=== PATIENT | female | born 1940 | race Caucasian/White ===

== ENCOUNTER → 2016-10-25 | Outpatient (CLI) | payer OTHER ==
--- NOTE | 2016-10-25 11:38 | DX ---
DEXA Bone Mineral Densitometry Clinical Indications: Postmenopausal, Synthroid x8 years, screening for osteoporosis Comparison: November 07, 2013 (low bone density) Technique: Bone Mineral Densitometry (BMD) by Dual Energy X-Ray Absorptiometry (DEXA) was performed utilizing the Minube scanner. The lumbar spine was evaluated in the AP projection. The bilat eral hips and forearm were evaluated in the AP projection. Vertebral fracture assessment was also pe rformed. AP Lumbar Spine: The L1, L2, L3 and L4 vertebral bodies were evaluated. BMD: 1.161 gm/cm2 T-score: -0.3 SD Z-score: 1.2 SD Significantly increased by 3.9%, which is likely related to degenerative sclerosis . AP Left Hip: Neck BMD: 0.805 gm/cm2 T-score: -1.7 SD Z-score: 0.1 SD No significant change in total BMD AP Right Hip: Neck BMD: 0.774 gm/cm2 T-score: -1.9 SD Z-score: -0.1 SD No significant change in total BMD AP Left Forearm, 10/26: BMD: 0.770 gm/cm2 T-score: -1.2 SD Z-score: 1.2 SD No significant change. Vertebral Fracture Assessment: No significant fracture deformity. No prevertebral aortic calcificati on, significant marginal bone spurring, facet arthrosis, or intrinsic vertebral body sclerosis that would effect the accuracy of the lumbar spine BMD measurement. Conclusion: Considering the lowest measured site, the patient has stable low bone density. The ten year FRAX risk for any major osteoporotic fracture is 19.8% and for a hip fracture is 4.7%.A ccording to the recommendations of the National Osteopor[employer], this patient would be a good candidate for bone strengthening pharmacologic intervention. Any bone loss in this patient is probably related to aging or estrogen deficiency. Consider excluding secondary metabolic causes of bone loss (reported to be present in as many as 30% of patients with normal Z scores). Basic laboratory evaluation might include blood chemistries (calci um, phosphorus, alkaline phosphatase, liver function tests, creatinine, total protein), complete bloo d count, serum 25-OH- vitamin D3 level, 24-hour urine calcium, serum TSH and serum PTH. Targeted l aboratory testing based on individual patient circumstances might include serum electrophoresis (SPEP or UPEP), anti-tissue transglutaminase antibody levels (celiac disease) , serum bone specific alkal ine phosphatase, bone turnover markers (urine, serum) or fibroblast growth factor 23 (FGF 23)(evaluat e for unexplained osteomalacia). If secondary causes are excluded, then consider initiating treatment with a bisphosphonate (such as F osamax, Actonel or Boniva). If the patient is unable to use an oral bisphosphonate, another agent suc h as IV bisphosphonates (Boniva or Reclast), teriparatide (Forteo), a selective estrogen receptor mo dulator (Evista) or denosumab ( anti RANKL monoclonal antibody) might be considered. If antiresorptive therapy is initiated and if clinically indicated, consider obtaining a baseline and 3 month followup bone resorption marker (NTX, CTX, TRAP5b or Pyridinoline, deoxypyridinoline) to mon itor the therapeutic effect. Supplementing an insufficient diet to achieve total intakes of 1500 mg calcium and 800 International Units of vitamin D daily should be considered. Osteoporosis prevention and treatment begins by modify ing risk factors. The patient should be encouraged to participate in a regular exercise program that includes weightbearing and muscle strengthening regimens, as is clinically appropriate. Recommend follow-up DEXA in one year to assess the efficacy of pharmacologic intervention and/or teofilo ection of appropriate secondary cause.
== END ==
LOC: FIMAGING 10:14
PROVIDERS: ATTEND Family Medicine
DX: Z13.820 Encounter for screening for osteoporosis (principal); M85.80 Other specified disorders of bone density and structure, unspecified site; Z78.0 Asymptomatic menopausal state; Z79.899 Other long term (current) drug therapy

== ENCOUNTER → 2017-04-05 | Outpatient (CLI) | payer OTHER | LOC: CIMAGING 11:04 | DX: Z12.31 Encounter for screening mammogram for malignant neoplasm of breast (principal); Z85.3 Personal history of malignant neoplasm of breast | CPT/HCPCS: G0202-52 ==

== ENCOUNTER → 2017-04-19 | Outpatient (CLI) | payer OTHER | LOC: FIMAGING 14:35 | PROVIDERS: ATTEND Family Medicine | DX: R05 Cough (principal); R53.81 Other malaise; R53.83 Other fatigue; E78.5 Hyperlipidemia, unspecified; R73.9 Hyperglycemia, unspecified; K44.9 Diaphragmatic hernia without obstruction or gangrene; Z85.3 Personal history of malignant neoplasm of breast ==

== ENCOUNTER → 2018-02-09 | Outpatient (CLI) | payer OTHER | LOC: FIMAGING 08:16 | PROVIDERS: ATTEND Surgery | DX: K44.9 Diaphragmatic hernia without obstruction or gangrene (principal); K22.4 Dyskinesia of esophagus; K21.9 Gastro-esophageal reflux disease without esophagitis ==

== ENCOUNTER 2018-02-20 07:09 | Inpatient (IN) | payer OTHER ==
[~2018-02-20 07:09] MED LIST: CLINDAMYCIN 900 MG/DEXTROSE 50 ML IV ONE
[2018-02-20] MEDS ORDERED: LR 1,000 ML IV ONE (07:43)
[2018-02-20] MEDS ORDERED: LIDOCAINE 1% 2 ML INJ ID PRN (07:43)
--- NOTE | 2018-02-20 07:50 | PDHPUP ---
History & Physical Update H&P update statement: This history and physical update is based on an assessment of the patient which was completed after admission or registration (within 24 hours), but prior to the surgery/procedure. H&P update: H&P reviewed & patient examined, no change in patient's condition since H&P completed
[2018-02-20] MEDS ORDERED: HEPARIN 1000 UNIT/1 ML MDV ONE (09:26)
[2018-02-20] MEDS ORDERED: BUPIVACAINE 0.5% 30 ML SDV ONE (09:26)
[2018-02-20] MEDS ORDERED: ceFAZolin 1 GM/5 ML SYR ONE (09:26)
[2018-02-20] MEDS ORDERED: MIDAZOLAM 2 MG/2 ML VIAL IVP ONE (10:24)
--- NOTE | 2018-02-20 10:26 | PDANEPAE ---
ANE History of Present Illness damaso VAZQUEZ Past Medical History - Cardiovascular History Hx Hypertension: Yes Hx Arrhythmias: Yes Hx Chest Pain: No Hx Coronary Artery / Peripheral Vascular Disease: No Hx CHF / Valvular Disease: No Hx Palpitations: Yes Cardiovascular History Comment: HYPERLIPIDEMIA. SVTs - Pulmonary History Hx COPD: No Hx Asthma/Reactive Airway Disease: No Hx Recent Upper Respiratory Infection: No Hx Oxygen in Use at Home: No Hx Sleep Apnea: No Sleep Apnea Screening Result - Last Documented: Negative Pulmonary History Comment: SOB OCCAS. PNEUMONIA 2-3 X YRS AGO. HX ASTHMA YRS AGO - NO PROBLEM RECENTLY - Neurologic History Hx Cerebrovascular Accident: No Hx Seizures: No Hx Dementia: No - Endocrine History Hx Diabetes: Yes Endocrine History Comment: THYROIDECTOMY - Renal History Hx Renal Disorders: No - Liver History Hx Hepatic Disorders: No - Neurological & Psychiatric Hx Hx Neurological and Psychiatric Disorders: No - Cancer History Hx Cancer: Yes Cancer History Comment: THYROID CA. BREAST CA - Congenital Disorder History Hx Congenital Disorders: No - GI History Hx Gastrointestinal Disorders: Yes Gastrointestinal History Comment: GERD. COLECTOMY - DIVERTICULITIS - Other Health History Other Health History: BRUISES EASILY - Chronic Pain History Chronic Pain: Yes (CINDY KNEES) - Surgical History Prior Surgeries: TONSILLECTOMY. THUMB JOINT REPAIR L. HAMMER TOE L. D&C. FIBROID TUMORS. LUMPECTOMY R. MASTECTOMY R. THYROIDECTOMY. COLECTOMY. ABD HERNIA REPAIR ANE Review of Systems Review of Systems: - Exercise capacity METS (RN): 3 METS ANE Patient History - Allergies Allergies/Adverse Reactions: Penicillins Allergy (Intermediate, Verified 02/20/18 08:04) Rash codeine Allergy (Mild, Verified 02/20/18 08:04) nausea Sulfa (Sulfonamide Antibiotics) Allergy (Mild, Verified 02/20/18 08:04) Rash - Home Medications Home Medications: Calcium Carbonate [Oyster Shell Calcium 500 mg (*)] 500 mg PO DAILY 02/16/18 [ Last Taken 02/16/18] Cholecalciferol Vit D3 [Vitamin D3 (*)] 1,000 units PO DAILY 02/16/18 [Last Taken 02/16/18] Herbals/Supplements -Info Only 1 ea PO DAILY 02/16/18 [Last Taken 02/16/18] Ibuprofen [Motrin (*)] 200 mg PO DAILY 02/16/18 [Last Taken 02/13/18] Levothyroxine [Synthroid 100 mcg (*)] 100 mcg PO DAILY06 02/16/18 [Last Taken 06:00] Losartan Potassium [Cozaar 25 mg (*)] 25 mg PO DAILY 02/16/18 [Last Taken 12:00] Metoprolol Succinate Xr [Toprol Xl 25 mg (*)] 37.5 mg PO HS 02/16/18 [Last Taken 02/19/18 22:00] Multivitamins [Multivitamin (*)] 1 each PO DAILY 02/16/18 [Last Taken 02/16/18] Rosuvastatin Calcium [Crestor 10mg (RX)] 10 mg PO HS 02/16/18 [Last Taken 22:00] - NPO status NPO Status: no food or drink >8 hours NPO Since - Liquids (Date): 02/20/18 NPO Since - Liquids (Time): 05:45 NPO Since - Solids (Date): 02/19/18 NPO Since - Solids (Time): 19:00 - Anes Hx Anes Hx: no prior problems - Smoking Hx Smoking Status: Former smoker - Family Anes Hx Family Hx Anesthesia Complications: NEG ANE Labs/Vital Signs - Vital Signs Blood Pressure: 146/76 Heart Rate: 76 Respiratory Rate: 16 O2 Sat (%): 95 Height: 156.21 cm Weight: 71.214 kg ANE Physical Exam - Airway Mallampati Score: Class 2 Mouth exam: normal dental/mouth exam - Pulmonary Pulmonary: no respiratory distress - Cardiovascular Cardiovascular: regular rate and rhythym - ASA Status ASA Status: II ANE Anesthesia Plan Anesthesia Plan: general endotracheal anesthesia
[2018-02-20] MEDS ORDERED: fentaNYL 100 MCG/2 ML INJ ONE ×2 (10:33→12:51)
[2018-02-20] MEDS ORDERED: PROPOFOL 200 MG/20 ML VIAL ONE (10:33)
[2018-02-20] MEDS ORDERED: DEXAMETHASONE 4 MG/ML VIAL ONE (10:34)
[2018-02-20] MEDS ORDERED: KETOROLAC 30 MG/1 ML SDV ONE (10:34)
[2018-02-20] MEDS ORDERED: ROCURONIUM 100 MG/10 ML VIAL ONE (10:34)
[2018-02-20] MEDS ORDERED: ONDANSETRON 4 MG/2 ML VIAL ONE (10:34)
[2018-02-20] MEDS ORDERED: LIDOCAINE 2% 5 ML SDV ONE (10:34)
[2018-02-20] MEDS ORDERED: epHEDrine SULFATE 10 MG/ML SYR ONE (11:21)
[2018-02-20] MEDS ORDERED: PHENYLEPHRINE 10 MG/ML SDV ONE (11:21)
[2018-02-20] MEDS ORDERED: GLYCOPYRROLATE 0.2 MG/1 ML VIAL ONE (11:21)
[2018-02-20] MEDS ORDERED: NALOXONE HCL 0.4 MG/ML INJ IVP PRN (12:21)
[2018-02-20] MEDS ORDERED: ONDANSETRON 4 MG/2 ML VIAL IVP PRN ×2 (12:21→12:38)
[2018-02-20] MEDS ORDERED: PHENYLEPHRINE HCL 100 MCG/ML SYR IVP PRN (12:21)
[2018-02-20] MEDS ORDERED: ALBUTEROL 3 ML DEYVIAL IH PRN (12:21)
[2018-02-20] MEDS ORDERED: LR 500 ML IV PRN (12:21)
[2018-02-20] MEDS ORDERED: SUGAMMADEX SODIUM 200 MG/2 ML VIAL IVP ONE (12:24)
--- NOTE | 2018-02-20 12:35 | POSTOPPROG ---
Post Op Note Date of Operation: 02/20/18 Surgeon: Ab Weller Senior Systems Analyst: Jerica Cam Anesthesiologist: Tad Marti Anesthesia: GET(General Endotracheal) Pre-op Diagnosis: large hiatal hernia, GERD, SOB Post-op Diagnosis: same Procedure: laparoscopic César fundoplication, hiatal hernia repair Findings: 3/4 of stomach in chest. pleura entered. intraop cxr s significant PTX Inf/Abcess present in the surg proc area at time of surgery?: No EBL: Minimal Complications: none Specimen(s): none
[2018-02-20] MEDS ORDERED: HYDROmorphONE/DILAUDID 1 MG/ML INJ IVP PRN (12:38)
[2018-02-20] MEDS ORDERED: NS W/ 20 KCl/L 1,000 ML IV SCH (12:45)
--- NOTE | 2018-02-20 12:48 | POSTANESTH ---
Post Anesthetic Evaluation Cardiovascular Status: Normal, Stable Respiratory Status: Normal, Stable Level of Consciousness/Mental Status: Can Participate in Eval Pain Control: Adequate, Prn Tx Ordered Nausea/Vomiting Control: Adequate, Prn Tx Ordered Complications Possibly Related to Anesthesia: None Noted
[2018-02-20] MEDS: fentaNYL 100 MCG/2 ML INJ IVP PRN ×2 (12:53→13:03)
[2018-02-20] MEDS ORDERED: HYDROmorphONE/DILAUDID 2 MG/ML INJ ONE (13:18)
[2018-02-20] MEDS: HYDROmorphONE/DILAUDID 2 MG/ML INJ IVP PRN ×2 (13:21→13:32)
[2018-02-20] MEDS: HYDROmorphone HCL/NS 0.5 MG/ML SYR IVP PRN ×3 (16:33→21:56)
[2018-02-20] MEDS: KETOROLAC 15 MG/1 ML SDV IVP SCH (17:57)
[2018-02-20] MEDS: HYDROCODONE/APAP 5/325 TAB PO PRN (22:01)
[2018-02-20] MEDS: ROSUVASTATIN CALCIUM 10 MG TAB PO SCH (22:01)
[2018-02-20] MEDS: DOCUSATE SODIUM 100 MG CAP PO SCH (22:02)
[2018-02-20] MEDS: METOPROLOL SUCCINATE XR 25 MG TAB PO SCH (22:03)
[2018-02-21] MEDS: KETOROLAC 15 MG/1 ML SDV IVP SCH ×4 (00:30→17:46)
[2018-02-21] MEDS: HYDROmorphone HCL/NS 0.5 MG/ML SYR IVP PRN ×2 (00:31→15:32)
[2018-02-21] MEDS ORDERED: POTASSIUM Cl (KCl) 20 MEQ in NS 1,000 ML IV SCH (02:00)
[2018-02-21] MEDS: HYDROCODONE/APAP 5/325 TAB PO PRN ×3 (05:03→16:06)
[2018-02-21] MEDS: LEVOTHYROXINE 100 MCG TAB PO SCH (05:03)
--- NOTE | 2018-02-21 09:15 | SOAPPROG ---
SOAP Progress Note Assessment/Plan: Assessment/Plan: 77 Y F s/p lap hiatal hernia repair with César fundoplication , POD#1. No PTX on CXR. Tolerating clears. No flatus. Pain controlled. Advance to full liquid diet. OOB today. Encouraged walking. Dispo: likely home tomorrow. S:see above O: alert, nad mmm no wob, good fremitus abd softly bloated, inc intact 02/21/18 09:13 Objective: Vital Signs Temp Pulse Resp BP Pulse Ox 36.5 C 83 16 102/51 L 91 L 02/21/18 07:35 02/21/18 07:35 02/21/18 07:35 02/21/18 07:35 02/21/18 07:35 Laboratory Results 02/21/18 04:25 02/21/18 04:25 02/20/18 02/21/18 02/22/18 05:59 05:59 05:59 Intake Total 1225 Output Total 950 Balance 275 ICD10 Worksheet Patient Problems: Problems Problem Status Onset Hiatal hernia Acute - ICD10 Problem Qualifiers (1) Hiatal hernia
[2018-02-21] MEDS: LOSARTAN POTASSIUM 25 MG TAB PO SCH (09:34)
[2018-02-21] MEDS: DOCUSATE SODIUM 100 MG CAP PO SCH (09:34)
--- NOTE | 2018-02-21 09:42 | ASMTCASEMG ---
Living Arrangements What is your living Answers: With Spouse arrangement? Who do you live with? Type Of Residence What kind of residence do Answers: House you live in? Discharge Plan Comments Coordination Status Comments Notes: Pt is a 77 y/o female admitted for a lap hiatel hernia repair with damaso fundoplication. Pt will most likely d/c independent when medically stable. No therapies ordered at this time. CM available for changes. Plan: Independent Date Signed: 02/21/2018 09:41 AM Electronically Signed By:JOSE Curran
[2018-02-21] MEDS ORDERED: NS 1,000 ML IV SCH (16:30)
--- NOTE | 2018-02-21 18:11 | SOAPPROG ---
SOAP Progress Note Assessment/Plan: Assessment: afebrile but markedly distended this pm/ no flatus/ decreased bs/ no tachycardia bs equal/ cor rr/ abd taunt imp: significant ileus Plan:stat 2-way 02/21/18 18:08 Objective: Vital Signs Temp Pulse Resp BP Pulse Ox 36.8 C 77 16 119/70 92 02/21/18 15:52 02/21/18 15:52 02/21/18 15:52 02/21/18 15:52 02/21/18 15:52 Laboratory Results 02/21/18 04:25 02/21/18 04:25 02/20/18 02/21/18 02/22/18 05:59 05:59 05:59 Intake Total 1225 Output Total 950 100 Balance 275 -100 ICD10 Worksheet Patient Problems: Problems Problem Status Onset Hiatal hernia Acute
[2018-02-21] MEDS ORDERED: NS 1,000 ML IV ONE (19:22)
[2018-02-21] MEDS ORDERED: ERTAPENEM 1 GM VIAL ONE (19:26)
[2018-02-21] MEDS ORDERED: FAMOTIDINE 20 MG/NACL 50 ML IV ONE (19:32)
[2018-02-21] MEDS: ERTAPENEM 1 GM VIAL IV SCH (19:32)
[2018-02-21] MEDS ORDERED: BUPIVACAINE 0.5% 30 ML SDV ONE ×2 (19:41→19:48)
[2018-02-21] MEDS ORDERED: ceFAZolin 1 GM/5 ML SYR ONE (19:42)
[2018-02-21] MEDS ORDERED: HEPARIN 1000 UNIT/1 ML MDV ONE (19:42)
[2018-02-21] MEDS ORDERED: MIDAZOLAM 2 MG/2 ML VIAL IVP ONE (19:55)
--- NOTE | 2018-02-21 19:57 | PDANEPAE ---
ANE History of Present Illness exp lap ANE Past Medical History - Cardiovascular History Hx Hypertension: Yes Hx Arrhythmias: Yes Hx Chest Pain: No Hx Coronary Artery / Peripheral Vascular Disease: No Hx CHF / Valvular Disease: No Hx Palpitations: Yes Cardiovascular History Comment: HYPERLIPIDEMIA. SVTs - Pulmonary History Hx COPD: No Hx Asthma/Reactive Airway Disease: No Hx Recent Upper Respiratory Infection: No Hx Oxygen in Use at Home: No Hx Sleep Apnea: No Sleep Apnea Screening Result - Last Documented: Negative Pulmonary History Comment: SOB OCCAS. PNEUMONIA 2-3 X YRS AGO. HX ASTHMA YRS AGO - NO PROBLEM RECENTLY - Neurologic History Hx Cerebrovascular Accident: No Hx Seizures: No Hx Dementia: No - Endocrine History Hx Diabetes: Yes Endocrine History Comment: THYROIDECTOMY - Renal History Hx Renal Disorders: No - Liver History Hx Hepatic Disorders: No - Neurological & Psychiatric Hx Hx Neurological and Psychiatric Disorders: No - Cancer History Hx Cancer: Yes Cancer History Comment: THYROID CA. BREAST CA - Congenital Disorder History Hx Congenital Disorders: No - GI History Hx Gastrointestinal Disorders: Yes Gastrointestinal History Comment: GERD. COLECTOMY - DIVERTICULITIS - Other Health History Other Health History: BRUISES EASILY - Chronic Pain History Chronic Pain: Yes (CINDY KNEES) - Surgical History Prior Surgeries: TONSILLECTOMY. THUMB JOINT REPAIR L. HAMMER TOE L. D&C. FIBROID TUMORS. LUMPECTOMY R. MASTECTOMY R. THYROIDECTOMY. COLECTOMY. ABD HERNIA REPAIR ANE Review of Systems Review of Systems: - Exercise capacity METS (RN): 3 METS ANE Patient History - Allergies Allergies/Adverse Reactions: Penicillins Allergy (Intermediate, Verified 02/20/18 08:04) Rash codeine Allergy (Mild, Verified 02/20/18 08:04) nausea Sulfa (Sulfonamide Antibiotics) Allergy (Mild, Verified 02/20/18 08:04) Rash - Home Medications Home Medications: Calcium Carbonate [Oyster Shell Calcium 500 mg (*)] 500 mg PO DAILY 02/16/18 [ Last Taken 02/16/18] Cholecalciferol Vit D3 [Vitamin D3 (*)] 1,000 units PO DAILY 02/16/18 [Last Taken 02/16/18] Herbals/Supplements -Info Only 1 ea PO DAILY 02/16/18 [Last Taken 02/16/18] Ibuprofen [Motrin (*)] 200 mg PO DAILY 02/16/18 [Last Taken 02/13/18] Levothyroxine [Synthroid 100 mcg (*)] 100 mcg PO DAILY06 02/16/18 [Last Taken 06:00] Losartan Potassium [Cozaar 25 mg (*)] 25 mg PO DAILY 02/16/18 [Last Taken 12:00] Metoprolol Succinate Xr [Toprol Xl 25 mg (*)] 37.5 mg PO HS 02/16/18 [Last Taken 02/19/18 22:00] Multivitamins [Multivitamin (*)] 1 each PO DAILY 02/16/18 [Last Taken 02/16/18] Rosuvastatin Calcium [Crestor 10mg (RX)] 10 mg PO HS 02/16/18 [Last Taken 22:00] - NPO status NPO Since - Liquids (Date): 02/21/18 NPO Since - Liquids (Time): 16:45 NPO Since - Solids (Date): 02/19/18 NPO Since - Solids (Time): 19:00 - Anes Hx Anes Hx: no prior problems - Smoking Hx Smoking Status: Former smoker - Family Anes Hx Family Hx Anesthesia Complications: NEG ANE Labs/Vital Signs - Labs Result Diagrams: 02/21/18 04:25 02/21/18 04:25 - Vital Signs Blood Pressure: 119/70 Heart Rate: 77 Respiratory Rate: 16 O2 Sat (%): 92 Height: 156.21 cm Weight: 71.214 kg ANE Physical Exam - Airway Mallampati Score: Class 2 Mouth exam: normal dental/mouth exam - Pulmonary Pulmonary: no respiratory distress - Cardiovascular Cardiovascular: regular rate and rhythym - ASA Status ASA Status: III, E ANE Anesthesia Plan Anesthesia Plan: general endotracheal anesthesia
[2018-02-21] MEDS ORDERED: MIDAZOLAM 2 MG/2 ML VIAL ONE (19:59)
[2018-02-21] MEDS ORDERED: ROCURONIUM 100 MG/10 ML VIAL ONE (20:03)
[2018-02-21] MEDS ORDERED: ONDANSETRON 4 MG/2 ML VIAL ONE (20:03)
[2018-02-21] MEDS ORDERED: DEXAMETHASONE 4 MG/ML VIAL ONE (20:03)
[2018-02-21] MEDS ORDERED: LIDOCAINE 2% 5 ML SDV ONE (20:03)
[2018-02-21] MEDS ORDERED: fentaNYL 100 MCG/2 ML INJ ONE ×2 (20:06→22:39)
[2018-02-21] MEDS ORDERED: PROPOFOL 200 MG/20 ML VIAL ONE (20:06)
[2018-02-21] MEDS ORDERED: PHENYLEPHRINE HCL 100 MCG/ML SYR ONE (20:11)
[2018-02-21] MEDS ORDERED: PHENYLEPHRINE 10 MG/ML SDV ONE (20:20)
[2018-02-21] MEDS ORDERED: ALBUMIN 5% 250 ML BOTTLE IV ONE (20:32)
[2018-02-21] MEDS ORDERED: RANITIDINE 50 MG/2 ML VIAL ONE (20:39)
[2018-02-21] MEDS ORDERED: FAMOTIDINE 20 MG/2 ML SDV ONE (20:42)
[2018-02-21] MEDS ORDERED: NS 500 ML IV PRN (21:52)
[2018-02-21] MEDS ORDERED: ONDANSETRON 4 MG/2 ML VIAL IVP PRN (21:52)
[2018-02-21] MEDS ORDERED: ALBUTEROL 3 ML DEYVIAL IH PRN (21:52)
[2018-02-21] MEDS ORDERED: fentaNYL 100 MCG/2 ML INJ IVP PRN (21:52)
[2018-02-21] MEDS ORDERED: PHENYLEPHRINE HCL 100 MCG/ML SYR IVP PRN (21:52)
[2018-02-21] MEDS ORDERED: NALOXONE HCL 0.4 MG/ML INJ IVP PRN ×2 (21:52→22:06)
[2018-02-21] MEDS ORDERED: HYDROmorphONE/DILAUDID 2 MG/ML INJ IVP PRN (21:52)
[2018-02-21] MEDS ORDERED: SUGAMMADEX SODIUM 200 MG/2 ML VIAL IVP ONE ×2 (22:04→22:09)
[2018-02-21] MEDS ORDERED: HYDROmorphONE/DILAUDID 6 MG/30 ML PCA IV PRN (22:06)
--- NOTE | 2018-02-21 22:11 | POSTOPPROG ---
Post Op Note Date of Operation: 02/21/18 Surgeon: Ab Weller Hydrologist: Jerica Cam Anesthesiologist: Tad Marti Anesthesia: GET(General Endotracheal) Pre-op Diagnosis: perforated viscous Post-op Diagnosis: gastric perforation Indication: 77 Y F s/p HH repair with distention, pain, free air, leak on swallow study Procedure: laparoscopy, laparotomy, repair of gastric perforation & Dwayne patch Findings: posterior gastric perforation. limited gross contamination. Inf/Abcess present in the surg proc area at time of surgery?: Yes Depth: Organ Space EBL: Minimal Complications: none Specimen(s): none
[2018-02-21] MEDS ORDERED: HYDROmorphONE/DILAUDID 2 MG/ML INJ ONE (22:39)
[2018-02-21] MEDS: fentaNYL 100 MCG/2 ML INJ IVP PRN (23:02)
[2018-02-22] MEDS: 1/2 NS 1,000 ML IV SCH ×3 (00:05→22:47)
[2018-02-22] MEDS: ROSUVASTATIN CALCIUM 10 MG TAB PO SCH ×2 (00:28→19:57)
[2018-02-22] MEDS: DOCUSATE SODIUM 100 MG CAP PO SCH ×2 (00:28→11:26)
[2018-02-22] MEDS: METOPROLOL SUCCINATE XR 25 MG TAB PO SCH (00:29)
[2018-02-22] MEDS: KETOROLAC 15 MG/1 ML SDV IVP SCH ×2 (00:36→05:34)
[2018-02-22 05:47] LABS: PLATELET COUNT 262 10^3/uL (150-400)
[2018-02-22] MEDS: LEVOTHYROXINE 100 MCG TAB PO SCH (07:05)
[2018-02-22] MEDS ORDERED: ENOXAPARIN 40 MG/0.4 ML SYR SC SCH (09:00)
--- NOTE | 2018-02-22 10:38 | SOAPPROG ---
SOAP Progress Note Assessment/Plan: Assessment/Plan: 77 Y F s/p lap hiatal hernia repair with César fundoplication , POD#2. s/p laparoscopy, laparotomy with repair of gastric perforation with oversew and Dwayne patch, washout, POD#1. Doing quite well this am given events yesterday evening, but still needs close observation and monitoring. Afebrile. WBC's wnl. Using minimal dilaudid for pain. GLADYS. Cr 1.3. Probably dehydration. Hyperkalemic. Continue IVF, no K+. Repeat labs in am. Stop toradol. NPO (ice chips for comfort ok). Continue NGT. Continue invanz for perforation and contamination. IV protonix. With help of RN and pharmacy, converting metoprolol and levothyroxine to IV. S: slept well. no nausea. minimal pain this am but still in bed. O: alert, nad mmm, ng in place ctab anteriorly and laterally abd softer. inc cdi. rare BS. 02/22/18 10:32 Objective: Vital Signs Temp Pulse Resp BP Pulse Ox 37.1 C 100 18 119/66 91 L 02/22/18 09:00 02/22/18 09:00 02/22/18 09:00 02/22/18 09:00 02/22/18 09:00 Laboratory Results 02/22/18 04:27 02/22/18 04:27 02/21/18 02/22/18 02/23/18 05:59 05:59 05:59 Intake Total 1225 Output Total 950 675 Balance 275 -675 ICD10 Worksheet Patient Problems: Problems Problem Status Onset Hiatal hernia Acute - ICD10 Problem Qualifiers (1) Hiatal hernia
[2018-02-22] MEDS: ERTAPENEM 1 GM VIAL IV SCH (10:58)
[2018-02-22] MEDS: PANTOPRAZOLE SODIUM 40 MG VIAL IVP SCH (11:06)
[2018-02-22] MEDS: LEVOTHYROXINE 100 MCG/5 ML SYR IVP SCH (11:07)
[2018-02-22] MEDS: LOSARTAN POTASSIUM 25 MG TAB PO SCH (11:27)
[2018-02-22] MEDS: METOPROLOL TARTRATE 5 MG/5 ML INJ IVP SCH ×3 (11:50→22:47)
--- NOTE | 2018-02-22 14:09 | PDMN ---
Medical Necessity Medical necessity: MCG M200 ileus- 2 days : post op ileus and gastric perforation :, laparoscopy, laparotomy, with repair of gastric perforation with oversew and Dwayne patch, washout- NPO, req NG tube, further close monitoring and tx. - IV abx, IV protonix, IV pain meds, fluids, change to INPT 02/22/18 @ 14:00
--- NOTE | 2018-02-22 18:42 | SOAPPROG ---
SOAP Progress Note Assessment/Plan: Assessment: afebrile but markedly distended this pm/ no flatus/ decreased bs/ no tachycardia bs equal/ cor rr/ abd taunt imp: significant ileus Plan:stat 2-way 02/21/18 18:08 02/22/18 18:41 REASONABLY STABLE THIS P.M. BUT SOME EPISODES OF TACHYCARDIA UP TO 120/ABDOMEN SOFT WITH RARE BOWEL SOUNDS AND MINIMAL FLATUS/WOUND OKAY MINIMAL NG OUTPUT/TEMP 37.5 DEGREES/CHEST X-RAY STABLE/WBC NORMAL/HEMATOCRIT 40/ URINE OUTPUT GREATER THAN 1 L Objective: Vital Signs Temp Pulse Resp BP Pulse Ox 37.5 C 115 H 20 139/61 H 95 02/22/18 17:00 02/22/18 17:00 02/22/18 17:00 02/22/18 17:00 02/22/18 17:00 Laboratory Results 02/22/18 04:27 02/22/18 04:27 02/21/18 02/22/18 02/23/18 05:59 05:59 05:59 Intake Total 1225 1631 Output Total 607 675 735 Balance 622 -260 617 ICD10 Worksheet Patient Problems: Problems Problem Status Onset Hiatal hernia Acute
[2018-02-22] MEDS ORDERED: ACETAMINOPHEN 325 MG TAB PO PRN (21:16)
[2018-02-22] MEDS: CEPACOL LOZENGE PO PRN (21:29)
[2018-02-22] MEDS: BENZONATATE 100 MG CAP PO PRN (21:29)
[2018-02-23] MEDS ORDERED: NS 1,000 ML IV ONE (00:16)
--- NOTE | 2018-02-23 00:38 | CPEKG ---
Heart Rate: 149 RR Interval: 403 QRSD Interval: 82 QT Interval: 284 QTC Interval: 447 QRS Hulbert: -14 T Wave Hulbert: 99 EKG Severity - ABNORMAL ECG - EKG Impression: ATRIAL FIBRILLATION WITH RAPID V-RATE EKG Impression: NONSPECIFIC T ABNORMALITIES, LATERAL LEADS Electronically Signed By: Nimesh Foley 23-Feb-2018 15:48:36
[2018-02-23] MEDS: CEPACOL LOZENGE PO PRN (00:47)
--- NOTE | 2018-02-23 01:16 | PDHOSCONS ---
History and Physical - Chief Complaint Tachycardia - History of Present Illness Date of consultation 02/23/[address] Weller Reason for consultation-tachycardia, medical management Source-patient provides history appears reliable. EMR reviewed. HPI - very pleasant 69-year-old female with past medical history significant for HTN, GERD, HLD, history of papillary thyroid cancer status post thyroidectomy, history of SVT, diverticulitis, MTHFR mutation heterozygous, breast cancer status post mastectomy, hiatal hernia status post op day 3 following a laparoscopic Tommy fundoplication. Patient was taken back to OR postop day 1 After development of abdominal distention and pain it was noted patient had a gastric perforation and was taken emergently for repair. Since that time patient has been doing well with the NG tube. Abdomen has remained soft. She has developed a mildly productive cough with some occasional shortness of breath on exertion. Patient denies any palpitations or chest pain. Patient denies any rhinorrhea but she does have some sensation of congestion particularly with the NG tube in place. She denies any lightheadedness, headache or changes in vision. Early this morning approximately midnight it was noted that patient's heart rate was found to be elevated in the 130s to 140s on telemetry. Remainder of patient's vital signs were within acceptable limits. She remains afebrile. Patient reported history of SVT and a normal cardiac workup with Dr. Mujica prior to surgery including Holter, echocardiogram and stress testing. Had additionally patient' s morning labs did note worsening progression of her renal function. Hospitalist Consultation was requested this morning for persistent tachycardia with assistance with medical management after vagal maneuvers were attempted and failed. History Information - Allergies/Home Medication List Allergies/Adverse Reactions: Penicillins Allergy (Intermediate, Verified 02/20/18 08:04) Rash codeine Allergy (Mild, Verified 02/20/18 08:04) nausea Sulfa (Sulfonamide Antibiotics) Allergy (Mild, Verified 02/20/18 08:04) Rash Home Medications: Calcium Carbonate [Oyster Shell Calcium 500 mg (*)] 500 mg PO DAILY 02/16/18 [ Last Taken 02/16/18] Cholecalciferol Vit D3 [Vitamin D3 (*)] 1,000 units PO DAILY 02/16/18 [Last Taken 02/16/18] Herbals/Supplements -Info Only 1 ea PO DAILY 02/16/18 [Last Taken 02/16/18] Ibuprofen [Motrin (*)] 200 mg PO DAILY 02/16/18 [Last Taken 02/13/18] Levothyroxine [Synthroid 100 mcg (*)] 100 mcg PO DAILY06 02/16/18 [Last Taken 06:00] Losartan Potassium [Cozaar 25 mg (*)] 25 mg PO DAILY 02/16/18 [Last Taken 12:00] Metoprolol Succinate Xr [Toprol Xl 25 mg (*)] 37.5 mg PO HS 02/16/18 [Last Taken 02/19/18 22:00] Multivitamins [Multivitamin (*)] 1 each PO DAILY 02/16/18 [Last Taken 02/16/18] Rosuvastatin Calcium [Crestor 10mg (RX)] 10 mg PO HS 02/16/18 [Last Taken 22:00] I have personally reviewed and updated: family history, medical history, social history, surgical history - Past Medical History Additional medical history: HTN, GERD, HLD, hypothyroidism following thyroidectomy for papillary thyroid cancer, history SVT, anxiety, osteoarthritis , osteopenia, cataracts, carpal tunnel, diverticulitis, MT H FR mutation heterozygous, breast cancer status post mastectomy, pneumonia, fibroids - Surgical History Additional surgical history: Recent fundoplication with large hiatal hernia repair and subsequent gastric perforation repair. Abdominal hernia repair. Lumpectomy and mastectomy. Will colectomy partial with reanastomosis. Thumb surgery. Thyroidectomy. T&A. - Family History Additional family history: Mother with history of cancer - Social History Smoking Status: Former smoker Tobacco Use: Cigarettes Alcohol Use: Occasionally (3-4 drinks per week) Drug Use: None Additional social history: Patient is lives with her . Cor status-full. Review of Systems Review of Systems: ROS: 10pt was reviewed & negative except for what was stated in HPI & below Constitutional: Reports: diaphoresis. Denies: chills, fever, weakness EENMT: Reports: no symptoms. Denies: blurred vision, nose congestion, sore throat Cardiac: Reports: edema (Trace lower extremity edema). Denies: chest pain, lightheadedness, palpitations, syncope Respiratory: Reports: cough, shortness of breath (With exertion). Denies: orthopnea, wheezing Gastrointestinal: Reports: abdominal pain (At incision site). Denies: vomitting , diarrhea, nausea Genitourinary: Reports: other ([place] catheter in place). Denies: burning, hematuria, urgency Muscolosketal: Denies: back pain, joint pain, muscle pain Skin: Reports: no symptoms. Denies: change in color, rash Neurological: Reports: no symptoms. Denies: anxiety, depressed, headache, numbness, tremors, weakness Hematologic/Lymphatic: Reports: no symptoms. Denies: blood clots, easy bleeding , easy bruising Physical Exam Physical Exam: Temp Pulse Resp BP Pulse Ox 37.1 C 147 H 22 H 116/88 H 95 02/23/18 00:54 02/23/18 00:54 02/23/18 00:54 02/23/18 00:54 02/23/18 00:54 O2 (L/minute) 2 Eyes: PERRL (Slightly decreased reactivity light bilaterally but symmetric.), anicteric sclera, EOMI, No scleral injection Ears, Nose, Mouth, Throat: no oral mucosal ulcers, dry mucous membranes, No poor dentition Cardiovascular: no murmur, rub, or gallop, pulses symmetric bilaterally, tachycardia, edema (1+ bilateral lower extremity.), No systolic murmur Peripheral Pulses: 1+: dorsalis-pedis (R), dorsalis-pedis (L) Respiratory: no respiratory distress, no rales or rhonchi (Right greater than left basilar), reduced air movement (Bibasilar decreased air movement), inspiratory crackles (Right basilar and lower anterior lung field), No respiratory distress Gastrointestinal: tenderness (Near incision site), distension (Mildly distended abdomen but soft.), No normoactive bowel sounds (Absent bowel sounds), No guarding Skin: warm, other (Patient appears slightly flushed nontoxic) Musculoskeletal: full muscle strength, No pain with ROM, No generalized weakness Neurologic: AAOx3, sensation intact bilaterally, other (Nonfocal exam.), No facial droop Psychiatric: interacting appropriately, not anxious, not encephalopathic, No depressed, No flat affect, No poor insight, No poor judgement, No poor memory Lab Data & Imaging Review 02/22/18 04:27 02/22/18 04:27 WBC 6.85 10^3/uL (3.80-9.50) 02/22/18 04:27 RBC 4.37 10^6/uL (4.18-5.33) 02/22/18 04:27 Hgb 12.5 g/dL (12.6-16.3) L 02/22/18 04:27 Hct 40.4 % (38.0-47.0) 02/22/18 04:27 MCV 92.4 fL (81.5-99.8) 02/22/18 04:27 MCH 28.6 pg (27.9-34.1) 02/22/18 04: MCHC 30.9 g/dL (32.4-36.7) L 02/22/18 04: RDW 12.7 % (11.5-15.2) 02/22/18 04:27 Plt Count 262 10^3/uL (150-400) 02/22/18 04:27 MPV 10.0 fL (8.7-11.7) 02/22/18 04:27 Neut % (Auto) Not Reported 02/22/18 04:27 Lymph % (Auto) Not Reported 02/22/18 04:27 Parmer % (Auto) Not Reported 02/22/18 04:27 Eos % (Auto) Not Reported 02/22/18 04:27 Baso % (Auto) Not Reported 02/22/18 04:27 Nucleat RBC Rel Count Not Reported 02/22/18 04:27 Absolute Neuts (auto) Not Reported 02/22/18 04:27 Absolute Lymphs (auto) Not Reported 02/22/18 04:27 Absolute Monos (auto) Not Reported 02/22/18 04:27 Absolute Eos (auto) Not Reported 02/22/18 04:27 Absolute Basos (auto) Not Reported 02/22/18 04:27 Absolute Nucleated RBC Not Reported 02/22/18 04:27 Immature Gran % Not Reported 02/22/18 04:27 Seg Neutrophils % 2.0 % 02/22/18 04:27 Band Neutrophils % 68.0 % 02/22/18 04:27 Lymphocytes % 4.0 % 02/22/18 04:27 Monocytes % 6.0 % 02/22/18 04:27 Eosinophils % 0 % 02/22/18 04:27 Basophils % 0 % 02/22/18 04:27 Metamyelocytes % 20.0 % 02/22/18 04:27 Myelocytes % 0 % 02/22/18 04:27 Promyelocytes % 0 % 02/22/18 04:27 Blast Cells % 0 % 02/22/18 04:27 Immature Gran # Not Reported 02/22/18 04:27 Absolute Seg Neuts 0.14 10^/uL (1.70-6.50) L 02/22/18 04:27 Absolute Band Neuts 4.66 10^3/uL (0.00-0.70) H 02/22/18 04:27 Absolute Lymphocytes 0.27 10^3/uL (1.00-3.00) L 02/22/18 04:27 Absolute Monocytes 0.41 10^3/uL (0.30-0.80) 02/22/18 04:27 Absolute Eosinophils 0.00 10^3/uL (0.03-0.40) L 02/22/18 04:27 Absolute Basophils 0.00 10^3/uL (0.02-0.10) L 02/22/18 04:27 Absolute Metamyelocyte 1.37 10^3/mL (0.00-0.00) H 02/22/18 04:27 Absolute Myelocytes 0.00 10^3/mL (0.00-0.00) 02/22/18 04:27 Absolute Promyelocytes 0.00 10^3/uL (0.00-0.00) 02/22/18 04:27 Absolute Plasma Cells 0.00 10^3/uL (0.00-0.00) 02/22/18 04:27 Absolute Blast Cells 0.00 10^3/uL (0.00-0.00) 02/22/18 04:27 Plasma Cells % 0 % 02/22/18 04:27 Toxic Granulation PRESENT H 02/22/18 04:27 Toxic Vacuolation PRESENT H 02/22/18 04:27 Platelet Estimate ADEQUATE (ADEQ) 02/22/18 04:27 Smear Review By TNP 02/22/18 04:27 Sodium 137 mEq/L (135-145) 02/22/18 04:27 Potassium 5.7 mEq/L (3.5-5.2) H 02/22/18 04:27 Chloride 108 mEq/L (97-110) 02/22/18 04:27 Carbon Dioxide 19 mEq/l (22-31) L 02/22/18 04:27 Anion Gap 10 mEq/L (8-16) 02/22/18 04:27 BUN 30 mg/dL (7-23) H 02/22/18 04:27 Creatinine 1.3 mg/dL (0.6-1.0) H 02/22/18 04:27 Estimated GFR 40 02/22/18 04:27 Glucose 84 mg/dL (70-100) 02/22/18 04:27 Calcium 7.3 mg/dL (8.5-10.4) L 02/22/18 04:27 Visualized and Interpreted Chest x-ray results: Yes Chest X-Ray results: effusion (Bilateral pleural effusions, pulmonary vascular congestion. Cardiomegaly.) EKG additional interpertation: AFib with RVR in the 140s. Assessment & Plan Assessment: 77-year-old female with multiple medical issues who was admitted 02/20/2018 for César fundoplication complicated by gastric perforation status post repair now with AFib with RVR new onset. #AFib with RVR - patient had some slowing in urine output and acute renal insufficiency suggesting some dehydration. She received a 500 cc bolus while awaiting chest x-ray and repeat laboratory studies concerning for some dehydration which could be contributing to her AFib. Chest x-ray did show some pulmonary vascular congestion and pleural effusions and so IV fluid was held. She is not currently on anticoagulation postoperatively due to bleeding risk. Patient reports that she had a previous stress test and echocardiogram with Dr. Mujica preoperatively. She denies any known history of CHF reported to her. Patient also notes that it has been almost a year since her last TFT sats which will be added with morning labs. Patient's heart rate has persisted 130s to 150s with adequate systolic blood pressures in the low 110. Patient reports these to be low values for her and she is concerned that her blood pressure will drop on if we proceed with treating with Cardizem bolus. I reviewed alternative options for treatment including trial of diuretic therapy to decrease load on the heart. Patient prefers to do a trial of Lasix and see if mobilization of excess fluid will help bring down her heart rate. She is amenable to proceed with a Cardizem bolus and possible drip if her blood pressures tolerate on if diuresis does not improve her heart rate. She and understand that patient in this case case would need to be transferred to the PCU for close cardiac monitoring and drip therapy. Echocardiogram in a.m.. Patient is followed by Dr. Mujica will seek a cardiology consult in the morning with follow-up as per day team. #Pleural effusion - Lasix as noted above. Likely related to persistent AFib and RVR. #Cough - secondary to pleural effusions. Patient at risk for pneumonia but she is afebrile without significant elevation in white count. Will do a trial of diuresis and monitor for any improvement in symptoms. Hold off on additional antibiotic therapy at this time. Patient already on Invanz for her intra- abdominal processes. #Dyspnea - secondary to volume overload and pleural effusions. Plan as above with diuresis. #Acute kidney injury - likely pre renal in setting of AFib with RVR decreased perfusion. BUN also elevated. She has received additional IV fluid but currently appears volume overloaded. Will attempt diuresis and on rate control as above. Monitor renal function with a.m. BMP. #Hiatal hernia (Acute)/gastric perforation repaired - status post repair with fundoplication. Plan as per primary team. #Abdominal pain - patient has [employer] pump and currently comfortable will defer pain management to primary team. #Hyperkalemia-mildly elevated likely component dehydration in setting of AK I. Will continue to monitor BMP. #Hypocalcemia - unsure if this corrects for albumin which she will check with morning labs. Also add on ionized calcium and replacement orders if needed. Chronic medical problems #Benign essential hypertension - blood pressure is currently acceptable at this time. Lasix as noted above in consideration for Cardizem if no improvement. Will monitor blood pressures closely as a are low normal at this time. #HLD - patient's statin therapy previously ordered. #GERD - on Protonix therapy. #Iatrogenic hypothyroidism - continue replacement. Check TFTs. #Anxiety - continue with supportive care in reassure. Consider Ativan p.r.n. Acutely if patient requires. FEN - decrease IV fluids to TKO for her [employer]. Electrolyte monitoring replacement if needed monitor K as above. NPO status as per primary team with NG tube in place clamped. PPX-SCDs in place. Holding anticoagulation postoperatively. Resume as per primary team. Cor status-full Disposition- patient's blood pressures at this time are maintaining and she is currently asymptomatic. Heart rate remains elevated and patient have declined use of Cardizem at this time preferring Lasix to see if correcting volume overload may help with her heart rate. At this time patient remain on medical floor unless her on vital signs destabilize and or on we require use of a drip in which case patient will need to be transferred to at minimum PCU. Thank you for this consultation we will continue to follow along with you.
[2018-02-23] MEDS ORDERED: DILTIAZEM 25 MG/5 ML VIAL IVP ONE ×2 (01:30→04:15)
[2018-02-23] MEDS ORDERED: FUROSEMIDE 20 MG/2 ML VIAL IVP ONE ×2 (01:35→02:00)
[2018-02-23] MEDS ORDERED: DILTIAZEM 125 MG in D5W 125 ML IV SCH (03:45)
[2018-02-23] MEDS: METOPROLOL TARTRATE 5 MG/5 ML INJ IVP SCH (05:00)
[2018-02-23 05:45] LABS: PLATELET COUNT 299 10^3/uL (150-400)
[2018-02-23] MEDS ORDERED: METOPROLOL TARTRATE 5 MG/5 ML INJ IVP PRN (06:39)
--- NOTE | 2018-02-23 07:05 | SOAPPROG ---
SOAP Progress Note Assessment/Plan: Assessment: afebrile but markedly distended this pm/ no flatus/ decreased bs/ no tachycardia bs equal/ cor rr/ abd taunt imp: significant ileus Plan:stat 2-way 02/21/18 18:08 02/22/18 18:41 REASONABLY STABLE THIS P.M. BUT SOME EPISODES OF TACHYCARDIA UP TO 120/ABDOMEN SOFT WITH RARE BOWEL SOUNDS AND MINIMAL FLATUS/WOUND OKAY MINIMAL NG OUTPUT/TEMP 37.5 DEGREES/CHEST X-RAY STABLE/WBC NORMAL/HEMATOCRIT 40/ URINE OUTPUT GREATER THAN 1 L 02/23/18 07:02 FEELING BETTER TODAY/ AFEBRILE/ CXR WITH SMALL BILAT EFFUSIONS/ HCT 39/ CREAT .9 / UO BRISK/ NG MINIMAL ABD SOFTER, WOUND OK, RARE BS/ NO FLATUS DEVELOPED RAPID AFIB LAST PM BUT NOW CONVERTED THANKS TO IM CONSULT Objective: Vital Signs Temp Pulse Resp BP Pulse Ox 37.1 C 143 H 26 H 96/53 L 94 02/23/18 05:10 02/23/18 05:10 02/23/18 05:10 02/23/18 05:10 02/23/18 05:10 Laboratory Results 02/23/18 05:30 02/23/18 05:30 02/22/18 02/23/18 02/24/18 05:59 05:59 05:59 Intake Total 5009 Output Total 354 3682 Balance -675 196 ICD10 Worksheet Patient Problems: Problems Problem Status Onset Hiatal hernia Acute
[2018-02-23] MEDS: LEVOTHYROXINE 100 MCG/5 ML SYR IVP SCH (10:34)
--- NOTE | 2018-02-23 12:29 | ECHO ---
[email or web address] [address] [address] Main: [phone] Fax: Transthoracic Echocardiogram Name: GAYLE ROMAN MR#: [id number] Study Date: 02/23/2018 Study Time: 11:06 AM Date of : 1940 Age: 77 year(s) Height: 154.9 cm (61 in.) Weight: 71.21 kg (157 lb.) BSA: 1.7 m2 Gender: Female Examination: Echo Indication: New onset A-fib post surgery, now sinus rhythm. Image Quality: Contrast: Requested by: Emi Parada BP: 110 mmHg/59 mmHg Heart Rate: Rhythm: Tachycardia Indication: New onset A-fib post surgery, now sinus rhythm. Procedure Staff Convention Services Manager: Niles Montoya RDCS Reading Physician: Se Suarez MD Requesting Provider: Conclusions: Global hypercontractility of the left ventricle. EF is 77 %. The mitral valve is normal in appearance and function. There are no subcostal images available due to surgery dressings. Compared to the previous exam from [facility] the echo appears the same.. Measurements: Chambers Valvular Assessment AV/MV Valvular Assessment TV/PV Normal Normal Normal Name Value Range Name Value Range Name Value Range Ao Kenisha (MM): 2.9 cm (2.2 cm-3.7 AV Vmax: 1.62 m/s (1 m/s-1.7 TR Vmax: 2.86 mm/s ( - ) cm) m/s) TR PGmax: 33 mmHg ( - ) IVSd (2D): 0.9 cm (0.6 cm-1.1 AV maxP mmHg ( - ) syst. PAP: 38 mmHg ( - ) cm) LVOT Vmax: 1.05 m/s (0.7 m/s-1.1 PV Vmax: 1.09 m/s (0.6 m/s-0.9 LVDd (2D): 3.8 cm (3.9 cm-5.3 m/s) m/s) cm) MV E Vmax: 0.55 m/s ( - ) PV PGmax: 5 mmHg ( - ) LVDs (2D): 2.1 cm (2.1 cm-4 MV A Vmax: 0.79 m/s ( - ) cm) MV E/A: 0.70 ( - ) LVPWd (2D): 0.9 cm ( - ) LVEF (2D): 77 (>=54 %) Continued Measurements: Chambers Valvular Assessment AV/MV Valvular Assessment TV/PV Name Value Name Value Name Value LADs Lon.0 cm MV E' Septal: 0.04 m/s CVP (est.): 5 mmHg LA Area: 19.4 cm2 MV E/E' Septal: 13.20 LA Volume: 59 ml MV E/E' Lateral: 6.90 LA Volume Index: 34.7 ml/m2 Patient: GAYLE ROMAN Study Date: 02/23/2018 Page 1 of 2 11:06 AM Findings: Left Ventricle: Normal size left ventricle. No LV hypertrophy. Global hypercontractility of the left ventricle. EF is 77 %. No regional wall motion abnormality. Diastolic dysfunction is present. . Right Ventricle: Normal size right ventricle. Normal RV function. Left Atrium: The left atrium is mildly dilated. Right Atrium: The right atrium is normal in size. Mitral Valve: The mitral valve is normal in appearance and function. Aortic Valve: The aortic valve is tri-leaflet and functions normally. Tricuspid Valve: The tricuspid valve is normal in appearance and function. Pulmonic Valve: The pulmonic valve is normal in appearance and function. Aorta: The aorta is normal. Exam Comments: There are no subcostal images available due to surgery dressings. Compared to the previous exam from [facility] the echo appears the same.. (No Signature Object) Patient: GAYLE ROMAN Study Date: 02/23/2018 Page 2 of 2 11:06 AM [id number]
--- NOTE | 2018-02-23 14:42 | ASMTCMCOM ---
CM Note CM Note Notes: Pts case discussed in tx rounds this AM. CM met w/ pt and for dispo planning. PT has been ordered and is recommending HC. Pt and reports that they hope to go independent. CM provided pt and w/ [facility] business card. They report that they will call if they need services set up. CM available for d/c needs. Plan: Independent Date Signed: 02/23/2018 02:41 PM Electronically Signed By:JOSE Curran
[2018-02-23] MEDS: ERTAPENEM 1 GM VIAL IV SCH (15:33)
[2018-02-23] MEDS: PANTOPRAZOLE SODIUM 40 MG VIAL IVP SCH (15:34)
--- NOTE | 2018-02-23 19:05 | HOSPPROG ---
Hospitalist Progress Note Assessment/Plan: #AFib with RVR - pt developed tachycardia overnight TELE (personally reviewed and interperted) sinus rhythm in the 100's Suspected triggered by post operative volume overload - cont low dose dilt gtt until can transition to PO - cont closely monitor HR #Acute kidney injury - likely pre renal in setting of AFib with RVR decreased perfusion. BUN also elevated. improved with hydration creatinine 1.3-> 1.0 - monitor in am # Acute hypoxic respiratory failure - suspect liekly volume related as well and post surgical splinting- oxygen saturation 96% on 4L - follow after diuresis - encourage IS and ambulation #Hiatal hernia (Acute)/gastric perforation repaired - status post repair with fundoplication. Plan as per primary team. #Hyperkalemia-mildly elevated likely component dehydration in setting of AK I. Will continue to monitor BMP. #Hypocalcemia - unsure if this corrects for albumin which she will check with morning labs. Also add on ionized calcium and replacement orders if needed. #Benign essential hypertension - SBP in the 90-100's this am - hold home antihypertensives #HLD - patient's statin therapy previously ordered. #GERD - on Protonix therapy. #Anxiety - continue with supportive care in reassure. Consider Ativan p.r.n. Acutely if patient requires. FEN - decrease IV fluids to TKO for her [employer]. Electrolyte monitoring replacement if needed monitor K as above. NPO status as per primary team with NG tube in place clamped. PPX-SCDs in place. Holding anticoagulation postoperatively. Resume as per primary team. Cor status-full # dispo- > 2MN as p requires ongoing PCU care with IV diltiazem gtt I have discussed the case with the RN - we will transition to PO diltiazem when cleared for PO intake Subjective: constipated Objective: Vital Signs Temp Pulse Resp BP Pulse Ox 36.9 C 101 H 20 141/54 H 96 02/23/18 16:00 02/23/18 16:00 02/23/18 16:00 02/23/18 16:00 02/23/18 16:00 Laboratory Results 02/23/18 05:30 02/23/18 05:30 02/22/18 02/23/18 02/24/18 05:59 05:59 05:59 Intake Total 2581 0 Output Total 675 2385 Balance -675 196 0 - Physical Exam Constitutional: no apparent distress Eyes: anicteric sclera Ears, Nose, Mouth, Throat: moist mucous membranes Cardiovascular: regular rate and rhythym Respiratory: reduced air movement Gastrointestinal: normoactive bowel sounds Genitourinary: no bladder fullness Skin: warm Musculoskeletal: No asymmetric calves Neurologic: AAOx3 Psychiatric: interacting appropriately Lymph, Heme, Immunologic: no cervical LAD ICD10 Worksheet Patient Problems: Problems Problem Status Onset Hiatal hernia Acute
[2018-02-23] MEDS: ROSUVASTATIN CALCIUM 10 MG TAB PO SCH (19:18)
[2018-02-23] MEDS ORDERED: ORAL BALANCE GEL TUBE PO PRN (20:58)
[2018-02-24 06:55] LABS: PLATELET COUNT 276 10^3/uL (150-400)
[2018-02-24] MEDS: PANTOPRAZOLE SODIUM 40 MG VIAL IVP SCH (10:06)
[2018-02-24] MEDS: LEVOTHYROXINE 100 MCG/5 ML SYR IVP SCH (10:06)
--- NOTE | 2018-02-24 11:32 | SOAPPROG ---
SOAP Progress Note Assessment/Plan: Assessment: 77 y/o F s/p lap damaso fundoplication 02/20 S/p laparotomy with oversew for gastric perforation 02/21 S: Had an allergic reaction to invanz last night. Resolved with benadryl. Denies pain and nausea. Passing some flatus. No BM yet. Eager to start drinking liquids. O: Alert Afebrile Rate controlled with dilt drip, per cardiology Abdomen: soft, nontender, incision cdi. +BS NG tube to suction with about 50cc out in last 24 hours. Plan: Clamp NG tube today and check residual at 4 hours. Advance to clear liquid diet. Possibly pull NG tube after clamp trial. Pt needs to be on abx. Will consult with ID about proper abx. 02/24/18 11:32 Objective: Vital Signs Temp Pulse Resp BP Pulse Ox 36.8 C 99 20 141/64 H 94 02/24/18 11:23 02/24/18 11:23 02/24/18 11:23 02/24/18 11:23 02/24/18 11:23 Laboratory Results 02/24/18 06:35 02/24/18 06:35 02/23/18 02/24/18 02/25/18 05:59 05:59 05:59 Intake Total 2581 0 Output Total 2385 900 250 Balance 196 -900 -250 ICD10 Worksheet Patient Problems: Problems Problem Status Onset Hiatal hernia Acute
[2018-02-24] MEDS: METOCLOPRAMIDE 10 MG/2 ML VIAL IVP SCH ×2 (13:08→18:40)
--- NOTE | 2018-02-24 14:50 | HOSPPROG ---
Hospitalist Progress Note Assessment/Plan: # Acute Allergic reaction to Ertapenem- developed rash within 30minutes of administration- s/p Benadryl IV with resolution of rash - dc ertapenem - Dr. Weller aware will chose different abx if ongoing antibiotics needed #AFib with RVR - pt developed post operatively -Suspected triggered by post operative volume overload converted to sinus after dilt gtt initiated TELE (personally reviewed and interperted) sinus rhythm in the 100's - cont low dose dilt gtt until can transition to PO - cont closely monitor HR #Acute kidney injury - likely pre renal in setting of AFib with RVR decreased perfusion. BUN also elevated. improved with hydration creatinine 1.3-> 0.6 - monitor in am # Acute hypoxic respiratory failure - suspect likely volume related as well and post-surgical splinting- oxygen saturation 94% on 2L - follow after diuresis - encourage IS and ambulation #Hiatal hernia (Acute)/gastric perforation repaired - status post repair with fundoplication. Plan as per primary team. #Hyperkalemia-mildly elevated likely component dehydration in setting of AK I. Will continue to monitor BMP. #Hypocalcemia - unsure if this corrects for albumin which she will check with morning labs- replacement orders if needed. # Benign essential hypertension - SBP creeping back up from 100's to 130's - cont hold home antihypertensives- can likely resume tomorrow with PO #HLD - patient's statin therapy previously ordered. #GERD - on Protonix therapy. #Anxiety - continue with supportive care in reassure. Consider Ativan p.r.n. Acutely if patient requires. FEN - decrease IV fluids to TKO for her [employer]. Electrolyte monitoring replacement if needed monitor K as above. NPO status as per primary team with NG tube in place clamped. PPX-SCDs in place. Holding anticoagulation postoperatively. Resume as per primary team. Cor status-full # dispo- > 2MN as p requires ongoing PCU care with IV diltiazem gtt I have discussed the case with Surgery - they will discuss abx and re-write if necessary Subjective: minimal abdominal pain - did pass flatus Objective: Vital Signs Temp Pulse Resp BP Pulse Ox 36.8 C 99 20 141/64 H 94 02/24/18 11:23 02/24/18 11:23 02/24/18 11:23 02/24/18 11:23 02/24/18 11:23 Laboratory Results 02/24/18 06:35 02/24/18 06:35 02/23/18 02/24/18 02/25/18 05:59 05:59 05:59 Intake Total 2581 0 Output Total 2385 900 250 Balance 196 -900 -250 - Physical Exam Constitutional: appears nourished Eyes: anicteric sclera Ears, Nose, Mouth, Throat: dry mucous membranes Cardiovascular: regular rate and rhythym Respiratory: no respiratory distress Gastrointestinal: normoactive bowel sounds, No guarding, No rebound, No distension Genitourinary: no bladder fullness Skin: warm Musculoskeletal: No asymmetric calves Neurologic: AAOx3 Psychiatric: interacting appropriately Lymph, Heme, Immunologic: no cervical LAD ICD10 Worksheet Patient Problems: Problems Problem Status Onset Hiatal hernia Acute
[2018-02-24] MEDS: ROSUVASTATIN CALCIUM 10 MG TAB PO SCH (21:11)
[2018-02-25] MEDS: METOCLOPRAMIDE 10 MG/2 ML VIAL IVP SCH ×5 (00:18→23:09)
[2018-02-25] MEDS: ALTEPLASE 2 MG VIAL IVP PRN (06:05)
[2018-02-25] MEDS: PANTOPRAZOLE SODIUM 40 MG VIAL IVP SCH (09:18)
[2018-02-25] MEDS: ACETAMINOPHEN 650 MG/20.3 ML UDCUP PO PRN ×2 (10:27→18:24)
[2018-02-25] MEDS: BENZONATATE 100 MG CAP PO PRN ×2 (10:38→16:21)
[2018-02-25] MEDS: CEPACOL LOZENGE PO PRN ×2 (10:38→18:08)
[2018-02-25] MEDS: LEVOTHYROXINE 100 MCG/5 ML SYR IVP SCH (10:39)
--- NOTE | 2018-02-25 13:04 | SOAPPROG ---
SOAP Progress Note Assessment/Plan: Assessment/Plan: -77yo F s/p César, s/p gastric perf repair - tachy, on dilt - NGT removed, doing ok with clears, passing flatus and has bowel sounds - OOB, ambulating - WBC higher today, per ID will be restarting levaquin and fluc today. - 02/25/18 13:03 Subjective: doing well, happy to have NGT out Objective: Vital Signs Temp Pulse Resp BP Pulse Ox 36.9 C 138 H 19 178/87 H 90 L 02/25/18 07:14 02/25/18 09:48 02/25/18 07:14 02/25/18 07:14 02/25/18 09:48 Laboratory Results 02/25/18 07:42 02/25/18 07:42 02/24/18 02/25/18 02/26/18 05:59 05:59 05:59 Intake Total 0 650 Output Total 900 501 100 Balance -900 149 -100 ICD10 Worksheet Patient Problems: Problems Problem Status Onset Hiatal hernia Acute
[2018-02-25] MEDS: FLUCONAZOLE/NaCl 100 ML IV SCH (13:40)
[2018-02-25] MEDS ORDERED: BENZOCAINE UNIT DOSE SPRAY HURRICAINE MM PRN (16:21)
--- NOTE | 2018-02-25 16:33 | HOSPPROG ---
Hospitalist Progress Note Assessment/Plan: * César HH repair, back to OR for gastric perf s/p Dwayne patch * Peritonitis -Levaquin, Fluconazole -with rising WBC consider CT a/p rule out abscess -ID consult * Allergic rx Ertapenem - rash * Afib - now sinus tachy -IV diltiazem gtt -change back to usual beta-pete now that she is taking PO -probably needs 30 days anticoag * Sinus tachy - ? dehydration vs. sepsis vs. PE * ARF - resolved * HTN -resume home meds and follow * GERD - PPI * MTHFR mutation heterozygote -very SOB with exertion with tachycardia -has not been on DVT prophylaxis post-op -check ddimer - CTA chest rule out PE if positive * Thyroid ca s/p thyroidectomy -continue Synthroid Subjective: Coughing, SOB with exertion Objective: Vital Signs Temp Pulse Resp BP Pulse Ox 37.2 C 111 H 21 H 175/85 H 93 02/25/18 15:25 02/25/18 15:25 02/25/18 15:25 02/25/18 15:25 02/25/18 15:25 Laboratory Results 02/25/18 07:42 02/25/18 07:42 02/24/18 02/25/18 02/26/18 05:59 05:59 05:59 Intake Total 0 650 Output Total 900 501 100 Balance -900 149 -100 CXR - negative tele reviewed - sinus tachy Still IV diltiazem gtt at 2.5mg per hour - Physical Exam Constitutional: no apparent distress, appears nourished, not in pain Cardiovascular: regular rate and rhythym, no murmur, rub, or gallop Respiratory: no respiratory distress, no rales or rhonchi, clear to auscultation Gastrointestinal: normoactive bowel sounds, soft, non-tender abdomen, no palpable masses Skin: no rashes or abrasions, no fluctuance, no induration Neurologic: AAOx3, sensation intact bilaterally Psychiatric: interacting appropriately, not anxious, not encephalopathic, thought process linear ICD10 Worksheet Patient Problems: Problems Problem Status Onset Hiatal hernia Acute
[2018-02-25] MEDS ORDERED: IPRATROPIUM/ALBUTEROL 3 ML DEYVIAL IH PRN (16:41)
--- NOTE | 2018-02-25 17:08 | ASMTCMCOM ---
CM Note CM Note Notes: PT still recommending HHC. Met w/pt and daughter and they both were in agreement w/HHC. They asked about [facility] but I confirmed w/Kinjal from this agency that they only do non-skilled HHC. REferrals sent to other [facility] agencies and will wait to hear back to see who is contracted w/[facility] and can accept. Spoke w/Oct from [facility] and they will review on Tuesday. CM will follow. Date Signed: 02/25/2018 05:07 PM Electronically Signed By:Sara Camilo RN
[2018-02-25] MEDS: NS 1,000 ML IV SCH ×2 (17:20→23:09)
[2018-02-25] MEDS ORDERED: DILTIAZEM 30 MG TAB PO SCH (18:00)
[2018-02-25] MEDS ORDERED: NS 500 ML IV ONE (18:14)
[2018-02-25] MEDS ORDERED: BENZONATATE 100 MG CAP PO ONE (18:30)
[2018-02-25] MEDS ORDERED: IOPAMIDOL (ISOVUE 370) 100 ML BTL IV ONE (19:21)
--- NOTE | 2018-02-25 20:45 | GCON ---
[f rep st] CONSULTATION INPATIENT INFECTIOUS DISEASE CONSULTATION REFERRING PHYSICIAN: Ab Weller MD REASON FOR REFERRAL: Gastric perforation after surgery. Query antibiotic prophylaxis. HISTORY OF PRESENT ILLNESS: The patient is a 77-year-old female who was admitted to [facility] on 02/20/2018 in order to undergo a César fundoplication. The patient also had a hiatal he rnia repair during this procedure. This happened on 02/21/2018. The patient did well until 02/24/20 18 when in the casino enforcement agent hours she developed tachycardia. The patient was seen early that amy lyles by Dr. Weller in surgery who noted that her abdomen was markedly distended. The patient returned to the operating room that day and a gastric perforation was discovered that was oversewed. She was st arted on ertapenem, but on 02/23 developed a significant body rash. This was discontinued. We were consulted for guidance on antibiotic choices. The patient currently is resting comfortably i n her hospital bed. She has no new complaint. She states with Benadryl the rash is gone. PAST MEDICAL HISTORY: 1. Hypertension. 2. Reflux. 3. Hyperlipidemia. 4. Hypothyroidism. 5. Thyroid cancer. 6. Supraventricular tachycardia. 7. Anxiety. 8. Osteoarthritis. 9. Osteopenia. 10. Diverticulitis. 11. Breast cancer. PAST SURGICAL HISTORY: 1. César fundoplication with hiatal hernia repair, subsequent gastric perforation over-sew. 2. Status post abdominal hernia repair. 3. Status post lumpectomy and mastectomy. 4. Status post hemicolectomy with anastomosis. 5. Status post thumb surgery. 6. Status post thyroidectomy. 7. Status post tonsillectomy and adenoidectomy. ANTIBIOTICS: None currently. ALLERGIES: The patient is allergic to penicillin, ertapenem, sulfa, and codeine. SOCIAL HISTORY: The patient is a remote smoker. Occasional alcohol use. No drug use. She is marrie d. FAMILY HISTORY: Reviewed, but noncontributory. REVIEW OF SYSTEMS: Other than that detailed above in the history of present illness, a comprehensive 10-system review is negative. PHYSICAL EXAMINATION: VITAL SIGNS: Temperature maximum is 37.2, current temperature 37.2, heart rat e is 102, respiratory rate is 24, blood pressure is 150/87. GENERAL: The patient is a well-formed, well-nourished older female in no acute distress. She is not toxic in appearance. She is alert and oriented x3. She has a pleasant demeanor. HEENT: Normocephalic for age. Atraumatic. No scleral i cterus. No oral lesion or drainage from the nares. Eyes: Lids and conjunctivae are within normal li mits. Pupils are equal and round bilaterally. NECK: Supple. No meningismus. LUNGS: Clear to aus cultation bilaterally with decreased breath sounds in the bases. Good effort. HEART: Tachycardic but regular,1 to 2+ peripheral edema bilaterally. SKIN: Warm and dry to the ashley . No rash or lesion noted. MUSCULOSKELETAL: No muscle belly tenderness is noted. No joint lines , effusion or arthritis are seen. NEURO: Cranial nerves 2-12 seem to be intact. Peripheral sensati on seems intact in extremities. LABORATORY DATA: Patient has a CBC dated 02/25/2018 shows a white blood cell count of 15.0, hemoglob in of 11.9, hematocrit of 37.4, and a platelet count of 295. No differential done. Serum chemistrie s on 02/25/2018 show sodium 141, potassium 3.6, chloride of 104, bicarbonate of 23, BUN of 17, and cr eatinine 0.6. MICROBIOLOGIC DATA: None currently. ASSESSMENT: Gastric perforation and leakage after César fundoplication with attempts for prophylaxi s with ertapenem, which were complicated by an allergic rash. I think the patient probably would diallo efit from some antibacterial and antifungal prophylaxis for a week out of surgery. Given her allergy history to penicillin and now carbapenems, would instead opt for a combination of fluoroquinolone an d fluconazole. We will institute this today and see how she tolerates. The fluoroquinolone of choic e would be Levaquin 750 mg IV daily and the antifungal would be fluconazole 200 mg today and 100 mg d aily afterwards. PLAN: 1. Antibiotics as described above. 2. Follow her tolerance of these medications. /[id number]/MODL
[2018-02-25] MEDS: ROSUVASTATIN CALCIUM 10 MG TAB PO SCH (21:02)
[2018-02-25] MEDS: METOPROLOL SUCCINATE XR 25 MG TAB PO SCH (21:03)
[2018-02-25] MEDS: GUAIFENESIN/DM 10 ML UDCUP PO PRN (21:05)
[2018-02-25] MEDS: HYDROCODONE/APAP 5/325 TAB PO PRN (22:36)
[2018-02-26] MEDS: METOCLOPRAMIDE 10 MG/2 ML VIAL IVP SCH ×4 (04:57→23:44)
[2018-02-26] MEDS: LEVOTHYROXINE 100 MCG TAB PO SCH (04:58)
[2018-02-26 05:12] LABS: PLATELET COUNT 285 10^3/uL (150-400)
[2018-02-26] MEDS ORDERED: DILTIAZEM CD 120 MG CAP PO SCH (09:00)
[2018-02-26] MEDS: FLUCONAZOLE/NaCl 100 ML IV SCH (09:43)
[2018-02-26] MEDS: BENZONATATE 100 MG CAP PO PRN ×2 (09:45→18:29)
[2018-02-26] MEDS: LOSARTAN POTASSIUM 25 MG TAB PO SCH (09:45)
[2018-02-26] MEDS: PANTOPRAZOLE SODIUM 40 MG VIAL IVP SCH (09:46)
[2018-02-26] MEDS: ENOXAPARIN 40 MG/0.4 ML SYR SC SCH (09:46)
--- NOTE | 2018-02-26 10:12 | HOSPPROG ---
Hospitalist Progress Note Assessment/Plan: * César HH repair, back to OR for gastric perf s/p Dwayne patch * Peritonitis -Levaquin, Fluconazole -CT negative for abscess * Allergic rx Ertapenem - rash * Afib - now sinus -change back to usual beta-pete now that she is taking PO -probably needs 30 days anticoag * Sinus tachy - suspect dehydration -tachycardia resolved with increased IVF overnight -CTA negative for PE * ARF - resolved * HTN -resume home meds and follow * GERD - PPI * MTHFR mutation heterozygote -Lovenox prophylaxis * Thyroid ca s/p thyroidectomy -continue Synthroid * Breast Ca s/p right mastectomy with LN dissection -no BP right arm Subjective: +small BM, tolerating clears, cough is better Objective: Vital Signs Temp Pulse Resp BP Pulse Ox 37.1 C 92 18 139/90 H 94 02/26/18 07:27 02/26/18 07:27 02/26/18 07:27 02/26/18 07:27 02/26/18 07:27 Laboratory Results 02/26/18 04:37 02/26/18 04:37 02/25/18 02/26/18 02/27/18 05:59 05:59 05:59 Intake Total 650 1809 Output Total 501 900 Balance 149 909 CTA chest - no PE CT abd/pelvis - no abscess tele - NSR d/w Dr Blum regarding PICC line dysfunction - to IR today to see if repositioning indicated - Physical Exam Constitutional: no apparent distress, appears nourished, not in pain Cardiovascular: regular rate and rhythym, no murmur, rub, or gallop Respiratory: no respiratory distress, no rales or rhonchi, clear to auscultation Gastrointestinal: normoactive bowel sounds, soft, non-tender abdomen, no palpable masses Skin: no rashes or abrasions, no fluctuance, no induration Neurologic: AAOx3, sensation intact bilaterally Psychiatric: interacting appropriately, not anxious, not encephalopathic, thought process linear ICD10 Worksheet Patient Problems: Problems Problem Status Onset Hiatal hernia Acute
--- NOTE | 2018-02-26 11:02 | SOAPPROG ---
SOAP Progress Note Assessment/Plan: Assessment/Plan: -77yo F s/p César, s/p gastric perf repair - HR improving, remains on dilt gtt. Appreciate IM assistance - Tolerating CLD, abdomen still distended and aTTP. Incision c/d/i - pain much better today - cont CLD - WBC still 15, levaquin and fluc added yesterday. Appreciate ID assistance - Poss advance diet early this week. 02/25/18 13:03 02/26/18 11:00 02/26/18 11:00 Subjective: pain much better today, still with flatus no BM Objective: Vital Signs Temp Pulse Resp BP Pulse Ox 37.1 C 92 18 139/90 H 94 02/26/18 07:27 02/26/18 07:27 02/26/18 07:27 02/26/18 07:27 02/26/18 07:27 Laboratory Results 02/26/18 04:37 02/26/18 04:37 02/25/18 02/26/18 02/27/18 05:59 05:59 05:59 Intake Total 650 1809 Output Total 501 900 Balance 149 909 ICD10 Worksheet Patient Problems: Problems Problem Status Onset Hiatal hernia Acute
[2018-02-26] MEDS ORDERED: PROTOCOL POTASSIUM 1 DOSE MISC PRN (11:56)
[2018-02-26] MEDS ORDERED: POTASSIUM Cl (KCl) 50 ML IV SCH ×2 (13:17→20:00)
--- NOTE | 2018-02-26 13:24 | PCMIDPN ---
Assessment/Plan: Assessment: Gastric perforation following César fundoplication-patient now on empiric prophylactic course for 7 days of Levaquin and fluconazole. Appears to be tolerating it well. Plan: 1. 7 days of Levaquin and fluconazole. Patient can change to oral when ready to go home. 02/26/18 13:23 Subjective: Patient states that she is improving. Family is in agreement. No new issues. No fevers or chills. Objective: Levaquin # 1 Fluconazole # 1 Vital Signs Temp Pulse Resp BP Pulse Ox 36.8 C 94 20 144/78 H 99 02/26/18 12:00 02/26/18 12:00 02/26/18 12:00 02/26/18 12:00 02/26/18 12:00 Laboratory Results 02/26/18 04:37 02/26/18 04:37 02/25/18 02/26/18 02/27/18 05:59 05:59 05:59 Intake Total 650 1809 Output Total 501 900 Balance 149 909 - Physical Exam General Appearance: WD/WN, alert, no apparent distress, non-toxic Respiratory: lungs clear, normal breath sounds, No respiratory distress Cardiac/Chest: regular rate, rhythm, No tachycardia Skin: normal color, warm/dry, No rash Neuro/Psych: alert, normal mood/affect, oriented x 3 ICD10 Worksheet Patient Problems: Problems Problem Status Onset Hiatal hernia Acute
--- NOTE | 2018-02-26 13:51 | ASMTCMCOM ---
CM Note CM Note Notes: Patient chart reviewed and discussed in rounds. She is still not well enough and therapies are recommending SNF at this point. She may however improve to the point where HHC would be appropriate. Multiple referrals made. [employer] plan limits choice. [facility] able to provide care if family elects to pay out of pocket. Other referrals pending. CM to follow. Plan: SNF vs HHC Date Signed: 02/26/2018 01:50 PM Electronically Signed By:Dayana Anand RN
--- NOTE | 2018-02-26 19:50 | GOP ---
[f rep st] OPERATIVE REPORT DATE OF OPERATION: 02/20/2018 SURGEON: Ab Weller MD PROFESSOR OF THEATRE: TRAMAINE Bazan. PREOPERATIVE DIAGNOSIS: Giant hiatal hernia with partial gastric volvulus. POSTOPERATIVE DIAGNOSIS: Giant hiatal hernia with partial gastric volvulus. PROCEDURE PERFORMED: Laparoscopic hiatal hernia repair with César fundoplication. FINDINGS: Patient was found to have the majority of her stomach up in the chest with partial twist o f the stomach. The whole stomach appeared to be quite viable after reduction. ESTIMATED BLOOD LOSS: Negligible. No complications. Taken to recovery room in good condition. DESCRIPTION OF PROCEDURE: Patient was taken to the operating room where she received satisfactory ge neral endotracheal anesthesia, placed in the supine position in split leg stirrups, prepped and drape d in the usual sterile fashion. An epigastric incision was made. A Veress needle was inserted, and pneumoperitoneum was established. Trocar was introduced. Laparoscope was introduced. Good visualization was obtained. Four other t rocars were placed in the upper abdomen under direct vision. The stomach was reduced out of the thorax with minimal difficulty. The hernia sac was dissected free circumferentially and both anterior and proximal crura were identified and freed up. It was somewha t difficult posteriorly and the posterior tariq but this was eventually freed with the Harmonic Scalpe l. Short gastrics were divided with the Harmonic Scalpel, and the esophagus was encircled. It was m obilized well up in the chest so that there was no tension on the reduction back into the abdomen. A 52 bougie dilator was placed, and the diaphragmatic crura were approximated with interrupted 0 Ethi arana sutures creating a snug hiatal opening. A César fundoplication wrap was then created passing the fundus of the stomach and around the retroe sophageal tunnel. Wrap was created with interrupted 0 Ethibond sutures securing the anterior wall of the stomach to the esophagus and then to the fundoplication wrap. The bougie was removed. The wrap appeared to be loose and intact. Wound was irrigated. Hemostasis was ensured. There was no evidence of any difficulties. There were no obvious complications. Trocars were removed under direct vision as pneumoperitoneum was released . Trocar sites were closed with 4-0 Monocryl, subcuticular stitch for the skin. All layers infiltra solomon with 0.5% Marcaine. She tolerated the procedure quite well. Copy requested to: Dwayne Mujica M.D. /[id number]/NICKOL
--- NOTE | 2018-02-26 20:06 | GOP ---
[f rep st] OPERATIVE REPORT DATE OF OPERATION: 02/21/2018 SURGEON: Ab Weller MD MONUMENT MASON: TRAMAINE Bazan. PREOPERATIVE DIAGNOSIS: Gastric perforation. POSTOPERATIVE DIAGNOSIS: Gastric perforation. PROCEDURE PERFORMED: Laparoscopy and laparotomy with repair of gastric perforation. FINDINGS: Patient had a previous César wrap fundoplication and hiatal hernia repair. She appeared to have a hole in the posterior wall of the stomach, which was close to the area of short gastrics, b ut not exactly associated with any short gastric. Stomach appeared to be mildly ischemic, but this w as difficult to ascertain with the César wrap in place and the evidence of some peritonitis. ESTIMATED BLOOD LOSS: Negligible. DESCRIPTION OF PROCEDURE: The patient taken to the operating room where she received satisfactory ge neral endotracheal anesthesia. She was placed in the supine position and prepped and draped in usual sterile fashion. Epigastric incision was made. A Veress needle was inserted. Pneumoperitoneum was established. Trocar was introduced. Laparoscope introduced. Two other trocar sites were placed in the upper abdomen. Dissection extended up in the left upper quadrant where the previous wrap was cr eated. The wound was irrigated and suctioned clear. No definite hole could be seen, but with instal lation of air through the NG tube, there was a definite leakage of air out of the posterior wall of t he stomach. This could not be well visualized. The procedure was converted to an open laparotomy, e xposing the esophageal hiatus in the upper portion of the stomach. The hole was identified. It was sharply debrided and then closed with interrupted 3-0 silk sutures. The posterior wall of the stomac h and greater curvature were then imbricated with multiple interrupted 3-0 silk sutures all along the line of where the short gastrics were taken down. The wound was irrigated. Hemostasis was assured. The stomach was reinflated with air. There was no evidence of any ongoing air leak. The stomach a ppeared to be viable. Pulsations were strong in the left gastric artery as well as in the gastroepip loic artery. NG tube was left in place. The abdomen was closed with a running #1 PDS suture for the linea alba, 3-0 Vicryl for the subcu, and a 4-0 Monocryl subcuticular stitch for the skin. The prev ious trocar sites were closed with 4-0 Monocryl interrupted sutures. All wounds were infiltrated wit h 0.5% Marcaine. She tolerated the procedure quite well. COMPLICATIONS: None. /[id number]/MODL
[2018-02-26] MEDS: ROSUVASTATIN CALCIUM 10 MG TAB PO SCH (20:30)
[2018-02-26] MEDS: METOPROLOL SUCCINATE XR 25 MG TAB PO SCH (20:30)
[2018-02-26] MEDS: POTASSIUM Cl (KCl) 100 ML IV SCH ×2 (20:35→22:30)
[2018-02-26] MEDS: GUAIFENESIN/DM 10 ML UDCUP PO PRN (20:35)
[2018-02-26] MEDS: CEPACOL LOZENGE PO PRN (20:35)
[2018-02-27] MEDS: LEVOTHYROXINE 100 MCG TAB PO SCH (05:50)
[2018-02-27] MEDS: BENZONATATE 100 MG CAP PO PRN (05:50)
[2018-02-27] MEDS: METOCLOPRAMIDE 10 MG/2 ML VIAL IVP SCH (05:50)
[2018-02-27 06:15] LABS: PLATELET COUNT 341 10^3/uL (150-400)
[2018-02-27] MEDS: PANTOPRAZOLE SODIUM 40 MG VIAL IVP SCH (09:09)
[2018-02-27] MEDS: GUAIFENESIN/DM 10 ML UDCUP PO PRN (09:09)
[2018-02-27] MEDS: FLUCONAZOLE/NaCl 100 ML IV SCH (09:09)
[2018-02-27] MEDS: LOSARTAN POTASSIUM 25 MG TAB PO SCH (09:09)
[2018-02-27] MEDS: ENOXAPARIN 40 MG/0.4 ML SYR SC SCH (09:09)
--- NOTE | 2018-02-27 09:10 | SOAPPROG ---
SOAP Progress Note Assessment/Plan: Assessment: 77 y/o F s/p lap damaso fundoplication 02/20 S/p laparotomy with oversew for gastric perforation 02/21 S/p allergic reaction to invanz 02/23. Now on levaquin and fluconazole. S: Daughter at bedside. C/o cough with mucous. Passing flatus, but no BM yet. O: Alert Afebrile Now on oral metoprolol for a-fib Abdomen: soft, nontender, incision cdi. +BS Chest: CTA anteriorly Plan: Get OOB with PT three times today. Use IS as much as possible. Advance to dysphagia III diet. 02/27/18 09:05 Objective: Vital Signs Temp Pulse Resp BP Pulse Ox 36.8 C 80 18 125/85 H 98 02/27/18 08:08 02/27/18 08:08 02/27/18 08:08 02/27/18 08:08 02/27/18 08:08 Laboratory Results 02/27/18 05:50 02/27/18 05:50 02/26/18 02/27/18 02/28/18 05:59 05:59 05:59 Intake Total 1809 1950 Output Total 900 850 Balance 909 1100 ICD10 Worksheet Patient Problems: Problems Problem Status Onset Hiatal hernia Acute
[2018-02-27] MEDS: IPRATROPIUM/ALBUTEROL 3 ML DEYVIAL IH SCH ×3 (11:25→22:21)
--- NOTE | 2018-02-27 15:16 | HOSPPROG ---
Hospitalist Progress Note Assessment/Plan: * César HH repair, back to OR for gastric perf s/p Dwayne patch * Peritonitis -Levaquin, Fluconazole -CT negative for abscess -change to PO at discharge - total 7 days * Allergic rx Ertapenem - rash * Afib - now sinus -change back to usual beta-pete now that she is taking PO -d/w Dr. Hart - needs at least 30 days anti-coag -start Eliquis -outpatient cardiology follow-up for Holter * Sinus tachy - suspect dehydration -tachycardia resolved with increased IVF -CTA negative for PE * ARF - resolved * HTN -resume home meds and follow * GERD - PPI * MTHFR mutation heterozygote -Lovenox prophylaxis * Thyroid ca s/p thyroidectomy -continue Synthroid * Breast Ca s/p right mastectomy with LN dissection -no BP right arm * Cough -a little wheezy - will schedule nebs * Leukocytosis -unclear why WBC increasing despite overall clinical improvement -check Cdiff - diarrhea today * Obesity BMI 32 Subjective: Still coughing terrible Objective: Vital Signs Temp Pulse Resp BP Pulse Ox 36.7 C 94 18 105/78 98 02/27/18 11:58 02/27/18 11:58 02/27/18 11:58 02/27/18 11:58 02/27/18 11:58 Laboratory Results 02/27/18 05:50 02/27/18 05:50 02/26/18 02/27/18 02/28/18 05:59 05:59 05:59 Intake Total 1809 1950 Output Total 900 850 Balance 909 1100 - Physical Exam Constitutional: no apparent distress, appears nourished, not in pain Cardiovascular: regular rate and rhythym, no murmur, rub, or gallop Respiratory: no respiratory distress, no rales or rhonchi, clear to auscultation , expiratory wheeze Gastrointestinal: normoactive bowel sounds, soft, non-tender abdomen, no palpable masses Skin: no rashes or abrasions, no fluctuance, no induration Neurologic: AAOx3, sensation intact bilaterally Psychiatric: interacting appropriately, not anxious, not encephalopathic, thought process linear ICD10 Worksheet Patient Problems: Problems Problem Status Onset Hiatal hernia Acute
[2018-02-27] MEDS: ACETAMINOPHEN 650 MG/20.3 ML UDCUP PO PRN ×2 (17:52→22:59)
[2018-02-27] MEDS ORDERED: POTASSIUM CL 10 MEQ TAB PO ONE (20:37)
[2018-02-27] MEDS: METOPROLOL SUCCINATE XR 25 MG TAB PO SCH (21:46)
[2018-02-27] MEDS: ROSUVASTATIN CALCIUM 10 MG TAB PO SCH (21:46)
[2018-02-27] MEDS: APIXABAN 5 MG TAB PO SCH (21:46)
[2018-02-28] MEDS: IPRATROPIUM/ALBUTEROL 3 ML DEYVIAL IH SCH ×4 (05:35→21:23)
[2018-02-28] MEDS: LEVOTHYROXINE 100 MCG TAB PO SCH (06:41)
[2018-02-28] MEDS: ACETAMINOPHEN 650 MG/20.3 ML UDCUP PO PRN ×2 (08:38→12:38)
[2018-02-28] MEDS: LOSARTAN POTASSIUM 25 MG TAB PO SCH (10:00)
[2018-02-28] MEDS: FLUCONAZOLE 100 MG TAB PO SCH (10:00)
[2018-02-28] MEDS: APIXABAN 5 MG TAB PO SCH ×2 (10:00→22:37)
[2018-02-28] MEDS: PANTOPRAZOLE SODIUM 40 MG TAB PO SCH (10:01)
[2018-02-28 11:05] LABS: PLATELET COUNT 345 10^3/uL (150-400)
[2018-02-28] MEDS: HYDROCORTISONE 1% CREAM TP SCH ×2 (12:39→22:38)
--- NOTE | 2018-02-28 13:45 | SOAPPROG ---
JAKOB Progress Note Assessment/Plan: Assessment/Plan: 77 Y F s/p lap hiatal hernia repair with César fundoplication , POD#2. s/p laparoscopy, laparotomy with repair of gastric perforation with oversew and Dwayne patch, washout. Overall, clinically improving. Patient is feeling better. WBC's have been trending up, but down today. Cdif negative. Will check UA, but doubt UTI. CTA chest and CT abd/pel neg for PNA/PE/abscess on 02/25. Continue to monitor. On levaquin, fluconozole. GI ppx/perf. On PPI. Afib. In SR now. Now on Eliquis--plan for a month of anticoagulation per cards. Cough. Much improved with neb treatments. Rash. Likely contact dermatitis. Mostly on back. Wants topical solution-- hydrocortisone ordered. Will d/w Dr. Weller. Dispo: pending. Would like to go home if possible. Patient has a personal goal of d/c on which is reasonable pending course. S: Feels like this is the best day yet. Nebs helping with cough. Sore, but thinks mostly from the cough. Eating. +BM. No N/V. No fever/chills. O: sitting OOB in chair eating toast with butter and jam. +BM. cough improved ctab rrr abd soft, inc cdi, +BS 02/28/18 13:39 Objective: Vital Signs Temp Pulse Resp BP Pulse Ox 36.8 C 84 21 H 118/57 L 91 L 02/28/18 12:00 02/28/18 12:00 02/28/18 12:00 02/28/18 12:00 02/28/18 12:00 Laboratory Results 02/28/18 10:00 02/28/18 06:50 02/27/18 02/28/18 03/01/18 05:59 05:59 05:59 Intake Total 1950 750 Output Total 850 200 300 Balance 1100 550 -300 ICD10 Worksheet Patient Problems: Problems Problem Status Onset Hiatal hernia Acute - ICD10 Problem Qualifiers (1) Hiatal hernia
--- NOTE | 2018-02-28 14:02 | ASMTCMCOM ---
CM Note CM Note Notes: 02/28/2018 Case Management Note Pt has been accepted to [facility]. Pt also has been accepted by [facility]. Case Management d/c poc depends on needs on day of d/c: [facility] vs [facility]. Case Management to follow. Date Signed: 02/28/2018 02:01 PM Electronically Signed By:Mandi Plamer RN
--- NOTE | 2018-02-28 15:02 | HOSPPROG ---
Hospitalist Progress Note Assessment/Plan: César HH repair, back to OR for gastric perf s/p Dwayne patch Peritonitis -Levaquin, Fluconazole -CT negative for abscess -change to PO at discharge - total 7 days Allergic rx Ertapenem - rash Afib - now sinus -change back to usual beta-pete now that she is taking PO -d/w Dr. Hart - needs at least 30 days anti-coag -start Eliquis -outpatient cardiology follow-up for Holter Sinus tachy - suspect dehydration -tachycardia resolved with increased IVF -CTA negative for PE ARF - resolved HTN -resume home meds and follow GERD - PPI MTHFR mutation heterozygote -Lovenox prophylaxis Thyroid ca s/p thyroidectomy -continue Synthroid Breast Ca s/p right mastectomy with LN dissection -no BP right arm Cough -a little wheezy - will schedule nebs Leukocytosis -unclear why WBC increasing despite overall clinical improvement -cdiff neg Obesity BMI 32 Subjective: case d/w diego valdez, surgery PA Objective: Vital Signs Temp Pulse Resp BP Pulse Ox 36.8 C 84 21 H 118/57 L 91 L 02/28/18 12:00 02/28/18 12:00 02/28/18 12:00 02/28/18 12:00 02/28/18 12:00 Laboratory Results 02/28/18 10:00 02/28/18 06:50 02/27/18 02/28/18 03/01/18 05:59 05:59 05:59 Intake Total 1950 750 Output Total 850 200 300 Balance 1100 550 -300 - Physical Exam Constitutional: no apparent distress, appears nourished Eyes: PERRL, anicteric sclera Ears, Nose, Mouth, Throat: moist mucous membranes, hearing normal Cardiovascular: regular rate and rhythym, no murmur, rub, or gallop, No systolic murmur Respiratory: no respiratory distress, no rales or rhonchi Gastrointestinal: other (distended, bowel sounds present, no rebound or guarding ) Genitourinary: No carter in urethra Skin: warm, normal color Musculoskeletal: full muscle strength, no muscle tenderness Neurologic: AAOx3 ICD10 Worksheet Patient Problems: Problems Problem Status Onset Hiatal hernia Acute
[2018-02-28] MEDS: METOPROLOL SUCCINATE XR 25 MG TAB PO SCH (22:36)
[2018-02-28] MEDS: ROSUVASTATIN CALCIUM 10 MG TAB PO SCH (22:38)
[2018-03-01] MEDS: IPRATROPIUM/ALBUTEROL 3 ML DEYVIAL IH SCH ×4 (05:57→22:48)
[2018-03-01] MEDS ORDERED: POTASSIUM CL 10 MEQ TAB PO ONE (07:53)
[2018-03-01] MEDS ORDERED: MAGNESIUM HYDROXIDE 30 ML UDCUP PO PRN (08:02)
[2018-03-01] MEDS ORDERED: BISACODYL 10 MG SUPP PR PRN (08:02)
[2018-03-01] MEDS ORDERED: POLYETHYLENE GLYCOL 3350 17 GM PKT PO PRN (08:02)
[2018-03-01] MEDS ORDERED: LACTULOSE 20 GM/30 ML UDCUP PO PRN (08:02)
[2018-03-01] MEDS: LEVOTHYROXINE 100 MCG TAB PO SCH (08:30)
[2018-03-01] MEDS: FLUCONAZOLE 100 MG TAB PO SCH (08:30)
[2018-03-01] MEDS: APIXABAN 5 MG TAB PO SCH ×2 (08:30→19:52)
[2018-03-01] MEDS: LOSARTAN POTASSIUM 25 MG TAB PO SCH (08:31)
[2018-03-01] MEDS: HYDROCORTISONE 1% CREAM TP SCH ×2 (08:31→19:40)
[2018-03-01] MEDS: PANTOPRAZOLE SODIUM 40 MG TAB PO SCH (08:31)
[2018-03-01 08:43] LABS: PLATELET COUNT 398 10^3/uL (150-400)
[2018-03-01] MEDS ORDERED: SENNOSIDES/DOCUSATE SODIUM TAB PO SCH (09:00)
--- NOTE | 2018-03-01 09:18 | HOSPPROG ---
Hospitalist Progress Note Assessment/Plan: César HH repair, back to OR for gastric perf s/p Dwayne patch Peritonitis -Levaquin, Fluconazole -CT negative for abscess -change to PO at discharge - total 7 days AHRF: likely atelectasis given upper abdominal surgery ecouraged IS rec RA challenge today Allergic rx Ertapenem - rash Afib - now sinus -change back to usual beta-pete now that she is taking PO -d/w Dr. Hart - needs at least 30 days anti-coag -start Eliquis -outpatient cardiology follow-up for Holter Sinus tachy - suspect dehydration -tachycardia resolved with increased IVF -CTA negative for PE ARF - resolved HTN -resume home meds and follow GERD - PPI MTHFR mutation heterozygote -Lovenox prophylaxis Thyroid ca s/p thyroidectomy -continue Synthroid Breast Ca s/p right mastectomy with LN dissection -no BP right arm Cough -a little wheezy - will schedule nebs Leukocytosis -unclear why WBC increasing despite overall clinical improvement -cdiff neg Obesity BMI 32 Subjective: tele: no AF (interp by me). case d/w diego valdez, surgery PA Objective: Vital Signs Temp Pulse Resp BP Pulse Ox 36.8 C 80 18 133/84 H 96 03/01/18 07:34 03/01/18 07:34 03/01/18 07:34 03/01/18 07:34 03/01/18 07:34 Laboratory Results 03/01/18 06:47 03/01/18 06:47 02/28/18 03/01/18 03/02/18 05:59 05:59 05:59 Intake Total 750 1600 Output Total 200 1050 200 Balance 550 550 -200 - Physical Exam Constitutional: no apparent distress, appears nourished Eyes: PERRL, anicteric sclera Ears, Nose, Mouth, Throat: moist mucous membranes, hearing normal Cardiovascular: regular rate and rhythym, no murmur, rub, or gallop Respiratory: no respiratory distress, other (bibasliar crackles) Gastrointestinal: other (mild distension, incision c/d/i, bowel sounds present) Genitourinary: No carter in urethra Skin: warm, normal color Musculoskeletal: full muscle strength, no muscle tenderness Neurologic: AAOx3 ICD10 Worksheet Patient Problems: Problems Problem Status Onset Hiatal hernia Acute
--- NOTE | 2018-03-01 10:28 | SOAPPROG ---
SOAP Progress Note Assessment/Plan: Assessment: 77 y/o F s/p lap damaso fundoplication 02/20 S/p laparotomy with oversew for gastric perforation 02/21 S/p allergic reaction to invanz 02/23. Now on levaquin and fluconazole. S: "Better than yesterday". Cough improved. Ready to go home tomorrow. Tolerating dysphagia III diet. Passing flatus and stool. Denies painful urination. O: Alert Afebrile WBC consistently high, back up to 15 today C-diff culture negative UA with +WBC, blood and bacteria Abdomen: soft, nontender, incision cdi. mild ecchymosis around incision. +BS Chest: CTA anteriorly, no increased WOB Plan: Unclear etiology of leukocytosis. Possibly due to albuterol neb treatments. Clinically, she is doing great and continuing to improve. Possible reimaging of abdomen tomorrow. Dispo home tomorrow. 03/01/18 10:22 Objective: Vital Signs Temp Pulse Resp BP Pulse Ox 36.8 C 80 18 133/84 H 96 03/01/18 07:34 03/01/18 07:34 03/01/18 07:34 03/01/18 07:34 03/01/18 07:34 Laboratory Results 03/01/18 06:47 03/01/18 06:47 02/28/18 03/01/18 03/02/18 05:59 05:59 05:59 Intake Total 750 1600 Output Total 200 1050 200 Balance 550 550 -200 ICD10 Worksheet Patient Problems: Problems Problem Status Onset Hiatal hernia Acute
[2018-03-01] MEDS: ROSUVASTATIN CALCIUM 10 MG TAB PO SCH (19:52)
[2018-03-01] MEDS: METOPROLOL SUCCINATE XR 25 MG TAB PO SCH (19:52)
[2018-03-01] MEDS: ACETAMINOPHEN 650 MG/20.3 ML UDCUP PO PRN (23:22)
[2018-03-02] MEDS: ACETAMINOPHEN 650 MG/20.3 ML UDCUP PO PRN ×2 (05:19→18:31)
[2018-03-02] MEDS: LEVOTHYROXINE 100 MCG TAB PO SCH (05:20)
[2018-03-02] MEDS: IPRATROPIUM/ALBUTEROL 3 ML DEYVIAL IH SCH ×4 (05:30→21:04)
[2018-03-02] MEDS: LOSARTAN POTASSIUM 25 MG TAB PO SCH (09:17)
[2018-03-02] MEDS: APIXABAN 5 MG TAB PO SCH ×2 (09:17→20:08)
[2018-03-02] MEDS: FLUCONAZOLE 100 MG TAB PO SCH (09:17)
[2018-03-02] MEDS: PANTOPRAZOLE SODIUM 40 MG TAB PO SCH (09:17)
[2018-03-02] MEDS: HYDROCORTISONE 1% CREAM TP SCH ×2 (09:18→21:24)
[2018-03-02] MEDS ORDERED: IOPAMIDOL (ISOVUE-300) 100 ML BTL ONE (09:38)
--- NOTE | 2018-03-02 11:39 | PCMIDPN ---
Assessment/Plan: Assessment: Gastric perforation following César fundoplication-patient now on empiric prophylactic course for 7 days of Levaquin and fluconazole. Appears to be tolerating it well. Plan: 1. 7 days of Levaquin and fluconazole. Patient can change to oral when ready to go home to complete. Subjective: Patient is resting well in her room. Feels well. No complaints of fever or chills. No rash. No itching. Objective: Levaquin # 5 Fluconazole # 5 Vital Signs Temp Pulse Resp BP Pulse Ox 36.5 C 82 18 118/77 99 03/02/18 11:20 03/02/18 11:20 03/02/18 11:20 03/02/18 11:20 03/02/18 11:20 Microbiology 03/01/18 16:22 Respiratory Panel (PCR) - Final Nasal, Sinus - Other No Organism Detected Laboratory Results 03/01/18 06:47 03/02/18 05:40 03/01/18 03/02/18 03/03/18 05:59 05:59 05:59 Intake Total 1600 1200 Output Total 1050 1000 600 Balance 550 200 -600 - Physical Exam General Appearance: WD/WN, alert, no apparent distress, non-toxic Respiratory: lungs clear, normal breath sounds, No respiratory distress Extremities: non-tender, normal inspection ICD10 Worksheet Patient Problems: Problems Problem Status Onset Hiatal hernia Acute
--- NOTE | 2018-03-02 15:59 | SOAPPROG ---
SOAP Progress Note Assessment/Plan: Assessment: afebrile but markedly distended this pm/ no flatus/ decreased bs/ no tachycardia bs equal/ cor rr/ abd taunt imp: significant ileus Plan:stat 2-way 02/21/18 18:08 02/22/18 18:41 REASONABLY STABLE THIS P.M. BUT SOME EPISODES OF TACHYCARDIA UP TO 120/ABDOMEN SOFT WITH RARE BOWEL SOUNDS AND MINIMAL FLATUS/WOUND OKAY MINIMAL NG OUTPUT/TEMP 37.5 DEGREES/CHEST X-RAY STABLE/WBC NORMAL/HEMATOCRIT 40/ URINE OUTPUT GREATER THAN 1 L 02/23/18 07:02 FEELING BETTER TODAY/ AFEBRILE/ CXR WITH SMALL BILAT EFFUSIONS/ HCT 39/ CREAT .9 / UO BRISK/ NG MINIMAL ABD SOFTER, WOUND OK, RARE BS/ NO FLATUS DEVELOPED RAPID AFIB LAST PM BUT NOW CONVERTED THANKS TO IM CONSULT 03/02/18 15:57 DOING WELL AND FEELING WELL TODAY/WANTS TO GO HOME/AFEBRILE/WBC STILL ELEVATED AT 15 K WOUND OKAY/ABDOMEN SOFT/ CHEST CLEAR AND SYMMETRIC WILL CHECK ABDOMINAL CT SCAN PRIOR TO DISCHARGE BECAUSE OF THE PROLONGED WBC ELEVATION Objective: Vital Signs Temp Pulse Resp BP Pulse Ox 36.6 C 92 18 118/80 96 03/02/18 15:48 03/02/18 15:48 03/02/18 15:48 03/02/18 15:48 03/02/18 15:48 Microbiology 03/01/18 16:22 Respiratory Panel (PCR) - Final Nasal, Sinus - Other No Organism Detected Laboratory Results 03/01/18 06:47 03/02/18 05:40 03/01/18 03/02/18 03/03/18 05:59 05:59 05:59 Intake Total 1600 1200 Output Total 1050 1000 600 Balance 550 200 -600 ICD10 Worksheet Patient Problems: Problems Problem Status Onset Hiatal hernia Acute
--- NOTE | 2018-03-02 16:47 | HOSPPROG ---
Hospitalist Progress Note Assessment/Plan: César HH repair, back to OR for gastric perf s/p Dwayne patch Peritonitis -Levaquin, Fluconazole -repeat CT w fluid collection- abscess vs seroma repeat cbc in AM -change to PO at discharge - total 7 days AHRF: likely atelectasis given upper abdominal surgery ecouraged IS rec RA challenge today Allergic rx Ertapenem - rash Afib - now sinus -change back to usual beta-pete now that she is taking PO -d/w Dr. Hart - needs at least 30 days anti-coag -start Eliquis -outpatient cardiology follow-up for Holter Sinus tachy - suspect dehydration -tachycardia resolved with increased IVF -CTA negative for PE ARF - resolved HTN -resume home meds and follow GERD - PPI MTHFR mutation heterozygote -Lovenox prophylaxis Thyroid ca s/p thyroidectomy -continue Synthroid Breast Ca s/p right mastectomy with LN dissection -no BP right arm Cough -a little wheezy - will schedule nebs Leukocytosis -unclear why WBC increasing despite overall clinical improvement -cdiff neg Obesity BMI 32 Subjective: case d/w dr spaulding. ct scan w fluid collection (inages reviewed/ interp by me) Objective: Vital Signs Temp Pulse Resp BP Pulse Ox 36.6 C 92 18 118/80 96 03/02/18 15:48 03/02/18 15:48 03/02/18 15:48 03/02/18 15:48 03/02/18 15:48 Microbiology 03/01/18 16:22 Respiratory Panel (PCR) - Final Nasal, Sinus - Other No Organism Detected Laboratory Results 03/01/18 06:47 03/02/18 05:40 03/01/18 03/02/18 03/03/18 05:59 05:59 05:59 Intake Total 1600 1200 Output Total 1050 1000 900 Balance 550 200 -900 - Physical Exam Constitutional: no apparent distress, appears nourished Eyes: PERRL, anicteric sclera Ears, Nose, Mouth, Throat: moist mucous membranes, hearing normal Cardiovascular: regular rate and rhythym, no murmur, rub, or gallop, No tachycardia Respiratory: no respiratory distress, clear to auscultation Gastrointestinal: normoactive bowel sounds, soft, non-tender abdomen, distension , No guarding, No rebound Genitourinary: no bladder fullness, No carter in urethra Skin: normal color ICD10 Worksheet Patient Problems: Problems Problem Status Onset Hiatal hernia Acute
[2018-03-02] MEDS: ALTEPLASE 2 MG VIAL IVP PRN (16:49)
[2018-03-02] MEDS: METOPROLOL SUCCINATE XR 25 MG TAB PO SCH (20:06)
[2018-03-02] MEDS: ROSUVASTATIN CALCIUM 10 MG TAB PO SCH (20:09)
[2018-03-03] MEDS: ACETAMINOPHEN 650 MG/20.3 ML UDCUP PO PRN ×2 (04:42→15:57)
[2018-03-03] MEDS: LEVOTHYROXINE 100 MCG TAB PO SCH (04:43)
[2018-03-03] MEDS: ALTEPLASE 2 MG VIAL IVP PRN ×2 (05:20→05:21)
[2018-03-03] MEDS: IPRATROPIUM/ALBUTEROL 3 ML DEYVIAL IH SCH ×4 (05:34→21:22)
[2018-03-03 06:41] LABS: PLATELET COUNT 460 10^3/uL (150-400)
[2018-03-03] MEDS: HYDROCORTISONE 1% CREAM TP SCH ×2 (08:31→21:04)
[2018-03-03] MEDS: FLUCONAZOLE 100 MG TAB PO SCH (08:32)
[2018-03-03] MEDS: LOSARTAN POTASSIUM 25 MG TAB PO SCH (08:32)
[2018-03-03] MEDS: APIXABAN 5 MG TAB PO SCH (08:33)
[2018-03-03] MEDS: PANTOPRAZOLE SODIUM 40 MG TAB PO SCH (08:33)
--- NOTE | 2018-03-03 13:35 | SOAPPROG ---
JAKOB Progress Note Assessment/Plan: Assessment: 77 y/o F s/p lap damaso fundoplication 02/20 S/p laparotomy with oversew for gastric perforation 02/21 S/p allergic reaction to invanz 02/23. Now on levaquin and fluconazole. S: "Better than yesterday". Cough improved. Ready to go home tomorrow. Tolerating dysphagia III diet. Passing flatus and stool. Denies painful urination. O: Alert Afebrile WBC consistently high, back up to 15 today C-diff culture negative UA with +WBC, blood and bacteria Abdomen: soft, nontender, incision cdi. mild ecchymosis around incision. +BS Chest: CTA anteriorly, no increased WOB Plan: Unclear etiology of leukocytosis. Possibly due to albuterol neb treatments. Clinically, she is doing great and continuing to improve. Possible reimaging of abdomen tomorrow. Dispo home tomorrow. 03/01/18 10:22 03/03/18 13:[address] shows residual fluid collection. WBC count up to 19.5 this morning. Clinically stable: pain well controlled, afebrile, passing flatus and stool, and tolerating a regular diet. Discussed with Dr. Weller. Will have IR drain abscess tomorrow. Discussed risks and options and pt agrees to plan. Objective: Vital Signs Temp Pulse Resp BP Pulse Ox 36.6 C 86 20 118/69 97 03/03/18 08:50 03/03/18 08:50 03/03/18 08:50 03/03/18 08:50 03/03/18 11:00 Laboratory Results 03/03/18 06:15 03/03/18 06:15 03/02/18 03/03/18 03/04/18 05:59 05:59 05:59 Intake Total 1200 400 Output Total 1000 1400 150 Balance 200 -1000 -150 ICD10 Worksheet Patient Problems: Problems Problem Status Onset Hiatal hernia Acute
--- NOTE | 2018-03-03 14:58 | PCMIDPN ---
Assessment/Plan: # Gastric perforation following César fundoplication with increasing WBC while on prophylactic levofloxacin and fluconazole, who underwent CT and found to have multiple fluid collections intra-abdominally 6.8 x 4.4 x 5.4 cm in the cul- de-sac between the uterus and the rectum, left colic gutter 3 x 0.8 x 7.5 cm, lymphocele type collection right inguinal 7.8 x 3.5 x 7.3 cm --drainage planned tomorrow, recommend sending cultures --continue levofloxacin and fluconazole, and prolonged QT, QTc documented between 0.32 and 0.42 --creatinine clearance is 56 therefore standard dosing for Levaquin and fluconazole is okay # Bilateral pleural effusion: May need to be evaluated more detail but suspect 3rd spacing # Antibiotic allergies, Penicillin, ertapenem: Rash Medications Levofloxacin 750 mg p.o. daily, # 6 Fluconazole 200 mg p.o. daily, # 6 Micro None from this hospitalization Subjective: Patient without specific complaints, denies diarrhea, rash Objective: Vital Signs Temp Pulse Resp BP Pulse Ox 36.6 C 86 20 118/69 97 03/03/18 08:50 03/03/18 08:50 03/03/18 08:50 03/03/18 08:50 03/03/18 11:00 Laboratory Results 03/03/18 06:15 03/03/18 06:15 03/02/18 03/03/18 03/04/18 05:59 05:59 05:59 Intake Total 1200 400 Output Total 1000 1400 150 Balance 200 -1000 -150 - Physical Exam General Appearance: no apparent distress EENT: pale conjunctiva, No scleral icterus, No thrush Respiratory: lungs clear (With decreased breath sounds in the bases), No accessory muscle use Cardiac/Chest: regular rate, rhythm Extremities: pedal edema Abdomen: non-tender, soft, distended, other (Midline incision healing well) Skin: pallor, No rash Neuro/Psych: alert, normal mood/affect, oriented x 3 - Time Spent With Patient Time Spent with Patient: greater than 35 minutes (Reviewed antibiotic selections , antibiotic allergies and need for drainage. Care coordinated with Dr. Marcial Weller) Time Spent with Patient: Greater than 35 minutes spent on this patients care, greater than 50% of time spent counseling, educating, and coordinating care regarding the above mentioned plan. ICD10 Worksheet Patient Problems: Problems Problem Status Onset Hiatal hernia Acute
--- NOTE | 2018-03-03 16:06 | ASMTCMCOM ---
CM Note CM Note Notes: Pts case discussed in tx rounds. Pts discharge has been postponed. Pt may d/c tomorrow. Pt will most likely d/c with [facility]. Pt and daughter wanted to keep [facility] as an option if they felt like they needed it. CM to follow. Plan: [facility], PT, OT, RN Date Signed: 03/03/2018 04:05 PM Electronically Signed By:JOSE Curran
--- NOTE | 2018-03-03 16:29 | HOSPPROG ---
Hospitalist Progress Note Assessment/Plan: César HH repair, back to OR for gastric perf s/p Dwayne patch Peritonitis -Levaquin, Fluconazole -repeat CT w fluid collection- abscess vs seroma repeat cbc in AM -change to PO at discharge - total 7 days given rising white count, aspiration of abdominal fluid collection and pleural fluid in AM AHRF: likely atelectasis given upper abdominal surgery ecouraged IS rec RA challenge today Allergic rx Ertapenem - rash Afib - now sinus -change back to usual beta-pete now that she is taking PO -d/w Dr. Hart - needs at least 30 days anti-coag -start Eliquis -outpatient cardiology follow-up for Holter Sinus tachy - suspect dehydration -tachycardia resolved with increased IVF -CTA negative for PE ARF - resolved HTN -resume home meds and follow GERD - PPI MTHFR mutation heterozygote -Lovenox prophylaxis Thyroid ca s/p thyroidectomy -continue Synthroid Breast Ca s/p right mastectomy with LN dissection -no BP right arm Cough -a little wheezy - will schedule nebs Leukocytosis -unclear why WBC increasing despite overall clinical improvement -cdiff neg Obesity BMI 32 Subjective: case d/w dr sexton, dr spaulding Objective: Vital Signs Temp Pulse Resp BP Pulse Ox 36.6 C 89 20 122/69 H 98 03/03/18 16:17 03/03/18 16:17 03/03/18 16:17 03/03/18 16:17 03/03/18 16:17 Laboratory Results 03/03/18 06:15 03/03/18 06:15 03/02/18 03/03/18 03/04/18 05:59 05:59 05:59 Intake Total 1200 400 Output Total 1000 1400 150 Balance 200 -1000 -150 - Physical Exam Constitutional: no apparent distress, appears nourished Eyes: PERRL, anicteric sclera Ears, Nose, Mouth, Throat: moist mucous membranes, hearing normal Cardiovascular: regular rate and rhythym, no murmur, rub, or gallop Respiratory: no respiratory distress, no rales or rhonchi Gastrointestinal: normoactive bowel sounds, soft, non-tender abdomen Genitourinary: no bladder fullness, No carter in urethra Skin: warm, normal color Musculoskeletal: full muscle strength Neurologic: AAOx3 ICD10 Worksheet Patient Problems: Problems Problem Status Onset Hiatal hernia Acute
[2018-03-03] MEDS: METOPROLOL SUCCINATE XR 25 MG TAB PO SCH (21:04)
[2018-03-03] MEDS: ROSUVASTATIN CALCIUM 10 MG TAB PO SCH (21:04)
[2018-03-04] MEDS: ACETAMINOPHEN 650 MG/20.3 ML UDCUP PO PRN ×2 (01:55→15:31)
[2018-03-04] MEDS: IPRATROPIUM/ALBUTEROL 3 ML DEYVIAL IH SCH ×4 (05:01→22:18)
[2018-03-04] MEDS: LEVOTHYROXINE 100 MCG TAB PO SCH (06:16)
[2018-03-04 06:46] LABS: INR 1.54 (0.83-1.16); PROTIME(PATIENT) 18.6 SEC (12.0-15.0)
--- NOTE | 2018-03-04 08:51 | HOSPPROG ---
Hospitalist Progress Note Assessment/Plan: César HH repair, back to OR for gastric perf s/p Dwayne patch Peritonitis: -Levaquin, Fluconazole -repeat CT w fluid collection- abscess vs seroma repeat cbc in AM -change to PO at discharge - total 7 days given rising white count, aspiration of abdominal fluid collection and pleural fluid today AHRF: likely atelectasis given upper abdominal surgery ecouraged IS rec RA challenge today Allergic rx Ertapenem - rash Afib - now sinus -change back to usual beta-pete now that she is taking PO -d/w Dr. Hart - needs at least 30 days anti-coag -start Eliquis -outpatient cardiology follow-up for Holter Sinus tachy - suspect dehydration -tachycardia resolved with increased IVF -CTA negative for PE ARF - resolved HTN -resume home meds and follow GERD - PPI MTHFR mutation heterozygote -Lovenox prophylaxis Thyroid ca s/p thyroidectomy -continue Synthroid Breast Ca s/p right mastectomy with LN dissection -no BP right arm Cough -a little wheezy - will schedule nebs Leukocytosis -unclear why WBC increasing despite overall clinical improvement -cdiff neg Obesity BMI 32 Subjective: case d.w ID . denies fevers. some increased RUQ pain Objective: Vital Signs Temp Pulse Resp BP Pulse Ox 36.6 C 79 15 131/75 H 96 03/04/18 07:57 03/04/18 07:57 03/04/18 07:57 03/04/18 07:57 03/04/18 07:57 Laboratory Results 03/03/18 06:15 03/03/18 06:15 03/03/18 03/04/18 03/05/18 05:59 05:59 05:59 Intake Total 400 1050 Output Total 1400 2000 Balance -1000 -950 PT 18.6 SEC (12.0-15.0) H 03/04/18 06:10 INR 1.54 (0.83-1.16) H 03/04/18 06:10 - Physical Exam Constitutional: no apparent distress, appears nourished Eyes: PERRL, anicteric sclera Ears, Nose, Mouth, Throat: moist mucous membranes, hearing normal Cardiovascular: regular rate and rhythym, no murmur, rub, or gallop Respiratory: no respiratory distress, no rales or rhonchi Gastrointestinal: normoactive bowel sounds, soft, non-tender abdomen, No guarding, No rebound Genitourinary: no bladder fullness, No carter in urethra Skin: warm, normal color Musculoskeletal: full muscle strength Neurologic: AAOx3 ICD10 Worksheet Patient Problems: Problems Problem Status Onset Hiatal hernia Acute
--- NOTE | 2018-03-04 09:00 | SOAPPROG ---
SOAP Progress Note Assessment/Plan: Assessment: 77 y/o F s/p lap damaso fundoplication 02/20 S/p laparotomy with oversew for gastric perforation 02/21 S/p allergic reaction to invanz 02/23. Now on levaquin and fluconazole. Plan for today is IR drainage of fluid collections Will monitor swelling on right abdomen Continue ABX May resume diet after IR procedure S: More sore on right side of abdomen. Otherwise feeling a bit better. O: General: Pleasant, well-nourished and well-groomed woman sitting on chair Lungs: Clear to auscultation bilaterally, decreased at bases Cardiac: Regular rate, Abdomen: Bowel sounds present, soft and appropriately tender. Incision clean dry and intact. More swollen on right side of abdomen Plan: 03/04/18 08:58 Objective: Vital Signs Temp Pulse Resp BP Pulse Ox 36.6 C 79 15 131/75 H 96 03/04/18 07:57 03/04/18 07:57 03/04/18 07:57 03/04/18 07:57 03/04/18 07:57 Laboratory Results 03/03/18 06:15 03/03/18 06:15 03/03/18 03/04/18 03/05/18 05:59 05:59 05:59 Intake Total 400 1050 Output Total 1400 2000 Balance -1000 -950 PT 18.6 SEC (12.0-15.0) H 03/04/18 06:10 INR 1.54 (0.83-1.16) H 03/04/18 06:10 ICD10 Worksheet Patient Problems: Problems Problem Status Onset Hiatal hernia Acute
--- NOTE | 2018-03-04 10:57 | PCMIDPN ---
Assessment/Plan: Assessment/Plan: * Gastric perforation status post César fundoplication with postoperative fluid collections and leukocytosis: Clinical findings concerning for postoperative abscess. Plans for percutaneous drainage via IR today. Will obtain cultures from collection. Continue levofloxacin and fluconazole empirically in interim. Modification of antibiotics as necessary based on culture findings taking into account patient's antibiotic allergies. * Pleural effusions: Plans for thoracentesis. Most likely these will be bland in etiology. 03/04/18 10:54 Subjective: Patient with mild right-sided abdominal pain and swelling. Objective: Vital Signs Temp Pulse Resp BP Pulse Ox 36.6 C 79 15 131/75 H 96 03/04/18 07:57 03/04/18 07:57 03/04/18 07:57 03/04/18 07:57 03/04/18 07:57 Laboratory Results 03/04/18 10:15 03/03/18 03/04/18 03/05/18 05:59 05:59 05:59 Intake Total 400 1050 Output Total 1400 2000 Balance -1000 -950 Levofloxacin # 7 Fluconazole # 7 - Physical Exam General Appearance: alert, no apparent distress EENT: No scleral icterus, No thrush Respiratory: lungs clear (Anterolaterally), No respiratory distress Cardiac/Chest: regular rate, rhythm Extremities: pedal edema Abdomen: distended (Mild to right of incision), tender (Mild right-sided), other (Incision intact without erythema or drainage) - Line/s LUE PICC Lines: No drainage, No erythema ICD10 Worksheet Patient Problems: Problems Problem Status Onset Hiatal hernia Acute
[2018-03-04] MEDS ORDERED: FLUMAZENIL 0.5 MG/5 ML MDV IVP PRN (10:59)
[2018-03-04] MEDS ORDERED: fentaNYL 100 MCG/2 ML INJ IVP PRN (10:59)
[2018-03-04] MEDS ORDERED: NALOXONE HCL 0.4 MG/ML INJ IVP PRN (10:59)
[2018-03-04] MEDS ORDERED: NS 1,000 ML IV SCH (11:00)
[2018-03-04 11:38] LABS: PLATELET COUNT 537 10^3/uL (150-400)
[2018-03-04] MEDS: MIDAZOLAM 2 MG/2 ML VIAL IVP PRN ×2 (12:07→12:08)
--- NOTE | 2018-03-04 12:13 | PDPROPOC ---
Sedation Plan of Care Sedation Plan of Care: vital signs stable, mental status noted, patient educated of risks, benefits, alternatives, patient can tolerate sedation ASA Classification: ASA 3 Planned drugs: fentanyl, midazolam Mallampati Score: Class 1 Mallampati Reference Image: Patient passed 3-3-2 rule?: Yes
[2018-03-04] MEDS ORDERED: LIDOCAINE 1% 300 MG/30 ML SDV ONE (12:47)
--- NOTE | 2018-03-04 13:27 | PDRADPN ---
Radiology Procedure Note Date of Procedure: 03/04/18 Radiologist: Pinky Steward Anesthesia: IV Sedation Pre-op Diagnosis: 1. PELVIC ABSCESS 2. PLEURAL EFFUSIONS Post-op Diagnosis: SAME Indication: NEEDS DIAGNOSTIC SAMPLING AND DRAIN PLACEMENT Procedure: 1. PELVIC DRAIN PLACEMENT. 2. RT CHEST TAP Finding(s): PURULENT MATERIAL ASPIRATED FROM PARARECTAL FLUID COLLECTION. 60CC FLUID SENT FROM RT CHEST. TOTAL 285CC TOTAL OUT OF RT CHEST. US SHOWS VERY COMPLEX AND MULTILOCULATED FLUID. FLUID ON LT CHEST IS MUCH MORE SIMPLE. Inf/Abcess present in the surg proc area at time of surgery?: Yes Depth: Organ Space (PERIRECTAL) Complications: NONE
[2018-03-04] MEDS: FLUCONAZOLE 100 MG TAB PO SCH (15:31)
[2018-03-04] MEDS: PANTOPRAZOLE SODIUM 40 MG TAB PO SCH (15:31)
[2018-03-04] MEDS: HYDROCORTISONE 1% CREAM TP SCH ×2 (15:32→20:44)
[2018-03-04] MEDS: LOSARTAN POTASSIUM 25 MG TAB PO SCH (15:32)
--- NOTE | 2018-03-04 16:26 | ASMTCMCOM ---
CM Note CM Note Notes: 03/04/2018 Case Management Note Discussed case with SILVERIO Ball. Pt has drain placed today for abcess and a thoracentesis today. Pt to have surgery tomorrow or Tuesday. Phone call from [facility] to discuss pt. [facility] has accepted pt as well. Case Management d/c poc: [facility] while staying with family members vs. [facility] rehab. Case Management to follow. Date Signed: 03/04/2018 04:17 PM Electronically Signed By:Mandi Palmer RN
[2018-03-04] MEDS: ROSUVASTATIN CALCIUM 10 MG TAB PO SCH (20:42)
[2018-03-04] MEDS: METOPROLOL SUCCINATE XR 25 MG TAB PO SCH (20:42)
[2018-03-05] MEDS: IPRATROPIUM/ALBUTEROL 3 ML DEYVIAL IH SCH ×4 (05:34→23:31)
[2018-03-05] MEDS: LEVOTHYROXINE 100 MCG TAB PO SCH (06:10)
[2018-03-05] MEDS: ACETAMINOPHEN 650 MG/20.3 ML UDCUP PO PRN (06:15)
[2018-03-05 07:04] LABS: PLATELET COUNT 611 10^3/uL (150-400)
[2018-03-05] MEDS ORDERED: IOPAMIDOL (ISOVUE-300) 100 ML BTL ONE (08:30)
[2018-03-05] MEDS: PANTOPRAZOLE SODIUM 40 MG TAB PO SCH (09:53)
[2018-03-05] MEDS: FLUCONAZOLE 100 MG TAB PO SCH (09:53)
[2018-03-05] MEDS: LOSARTAN POTASSIUM 25 MG TAB PO SCH (09:53)
[2018-03-05] MEDS ORDERED: FUROSEMIDE 40 MG TAB PO ONE (11:51)
[2018-03-05] MEDS ORDERED: diphenhydrAMINE 25 MG CAP PO PRN (11:51)
--- NOTE | 2018-03-05 11:56 | HOSPPROG ---
Hospitalist Progress Note Assessment/Plan: 77-year-old status post lap César fundoplication on 02/20. Status post laparotomy with oversew for gastric perforation on 02/21. She has had a long complicated hospital course dealing with this. # peritonitis secondary to above, discussed with Dr. Kim and Dr. Dove * Currently on Levaquin and fluconazole * Minimal fluid from right-sided pleural effusion which is loculated and 285 cc from left pleural fluid, possible VATS * Status post aspiration of abdominal fluid collection yesterday as well which showed GPC * Continue antibiotics and follow up white count for possible need for VATS depending on clinical status # edema: Patient has increasing edema bilateral lower extremities which she has had in the past. I reviewed her echocardiogram which showed some LVH and hyperdynamic ventricle * Lasix 40 mg x1, follow-up potassium * Will give her a dose of 20 mEq is today # atrial fibrillation, now in sinus rhythm after being on diltiazem drip. On Eliquis for anticoagulation which is recommended for 30 days, however overall low risk and okay to hold for few days while we determine further need for interventions. * Continue beta-pete and Eliquis on discharge * Eliquis on hold currently due to possible intervention tomorrow * Will need outpatient Holter monitor # anxiety: Patient complaining of some difficulty with sleeping and increased anxiety. She had been treated in the distant past with Prozac that she does not think helped her much. Agree with trying to get her some good sleep to see if that helps her symptoms and will add on low-dose lorazepam * Benadryl p.r.n. Sleep * The lorazepam as needed * Could consider trial of trazodone if the Benadryl is not helpful # acute hypoxic respiratory failure likely from atelectasis, continue IS # allergic reaction to ertapenem with rash # acute renal failure, resolved # tachycardia, sinus tach resolved with IV fluids, CT angiogram negative for PE # hypertension, currently on home meds # GE reflux disease on PPI # DVT prophylaxis currently on Eliquis for AFib # thyroid cancer status post thyroidectomy, on Synthroid # breast cancer status post right mastectomy with lymph node dissection Subjective: Patient new to me and chart reviewed. She is feeling a little bit better daily although has increased anxiety about her extended hospital stay and has difficulty sleeping Objective: Vital Signs Temp Pulse Resp BP Pulse Ox 36.7 C 79 24 H 131/80 H 94 03/05/18 07:52 03/05/18 07:52 03/05/18 07:52 03/05/18 07:52 03/05/18 07:52 Microbiology 03/04/18 14:00 Gram Stain - Final Abdomen - Aspirate 03/04/18 11:51 Gram Stain - Final Thoracic Fluid - Aspirate Laboratory Results 03/05/18 06:00 03/05/18 06:00 03/04/18 03/05/18 03/06/18 05:59 05:59 05:59 Intake Total 1050 1700 350 Output Total 2000 1330 400 Balance -950 370 -50 PT 18.6 SEC (12.0-15.0) H 03/04/18 06:10 INR 1.54 (0.83-1.16) H 03/04/18 06:10 - Physical Exam Constitutional: not in pain, obese Eyes: PERRL, anicteric sclera, EOMI Ears, Nose, Mouth, Throat: moist mucous membranes, hearing normal Cardiovascular: regular rate and rhythym Respiratory: no respiratory distress, reduced air movement (Bases) Gastrointestinal: normoactive bowel sounds, No tenderness Skin: warm, normal color Musculoskeletal: generalized weakness Neurologic: AAOx3 Psychiatric: interacting appropriately, not encephalopathic ICD10 Worksheet Patient Problems: Problems Problem Status Onset Hiatal hernia Acute
--- NOTE | 2018-03-05 12:11 | SOAPPROG ---
SOAP Progress Note Assessment/Plan: Assessment: 77 y/o F s/p lap damaso fundoplication 02/20 S/p laparotomy with oversew for gastric perforation 02/21 S/p allergic reaction to invanz 02/23. Now on levaquin and fluconazole. IR drainage pelvic abscess and tap of pleural fluid collection WBC better Had a long discussion with patient and her family. WBC improved. CT with loculated fluid collection. A chest tube will not evacuate this collection. We had a long discussion about VATS. She is very hesitant about additional procedures. I offered to put her on the schedule for tomorrow and cancel if CXR and WBC improved. They were not comfortable with being on the schedule. She will not eat or drink anything after midnight and we will hold anticoagulation. (I am not making her NPO in the chart to reduce anxiety). The patient and her are very clear with the plan Edema of ankles - lasix 40 mg po x 1 Anxiety - ativan prn Insomnia - benadryl prn Continue ABX Discussed case with Dr. Ortega and Dr. Dove S:More tired today but no specific complaints other than anxiety, sleeplessness and ankle swelling O: General: Pleasant, well-nourished and well-groomed woman sitting on chair at bedside Lungs: Clear to auscultation bilaterally, decreased at bases Cardiac: Regular rate, Abdomen: Bowel sounds present, softer today and appropriately tender. Incision clean dry and intact. M Edema of ankles Plan: 03/04/18 08:58 03/05/18 12:00 Objective: Vital Signs Temp Pulse Resp BP Pulse Ox 36.7 C 79 24 H 131/80 H 94 03/05/18 07:52 03/05/18 07:52 03/05/18 07:52 03/05/18 07:52 03/05/18 07:52 Microbiology 03/04/18 14:00 Gram Stain - Final Abdomen - Aspirate 03/04/18 11:51 Gram Stain - Final Thoracic Fluid - Aspirate Laboratory Results 03/05/18 06:00 03/05/18 06:00 03/04/18 03/05/18 03/06/18 05:59 05:59 05:59 Intake Total 1050 1700 350 Output Total 2000 1330 400 Balance -950 370 -50 PT 18.6 SEC (12.0-15.0) H 03/04/18 06:10 INR 1.54 (0.83-1.16) H 03/04/18 06:10 ICD10 Worksheet Patient Problems: Problems Problem Status Onset Hiatal hernia Acute
--- NOTE | 2018-03-05 12:13 | PCMIDPN ---
Assessment/Plan: Assessment/Plan: * Gastric perforation status post César fundoplication with postoperative fluid collections and leukocytosis: Status post percutaneous drainage yesterday with Gram stain showing GPC. Culture remains negative to date. Given clinical stability, will hold off on modification of antibiotics pending additional culture data given multiple drug allergies. Continue levofloxacin and fluconazole in interim. If collection does not show evidence of yeast, plan to discontinue fluconazole. * Pleural effusions: Pleural fluid findings and CT consistent with complicated pleural effusion with possible empyema; air present within fluid collection radiographically raises possibility of anaerobic jarret. Discussed with patient addition of metronidazole and she favors awaiting further decision making regarding possible VATS. Suspect that will be necessary to resolve loculated effusion. Clinical findings and plan discussed with Dr. Kim and Dr. Ortega. 03/05/18 12:09 Subjective: Patient with decreased abdominal discomfort post drainage of pelvic fluid collection. Objective: Vital Signs Temp Pulse Resp BP Pulse Ox 36.7 C 79 24 H 131/80 H 94 03/05/18 07:52 03/05/18 07:52 03/05/18 07:52 03/05/18 07:52 03/05/18 07:52 Microbiology 03/04/18 14:00 Gram Stain - Final Abdomen - Aspirate 03/04/18 11:51 Gram Stain - Final Thoracic Fluid - Aspirate Laboratory Results 03/05/18 06:00 03/05/18 06:00 03/04/18 03/05/18 03/06/18 05:59 05:59 05:59 Intake Total 1050 1700 350 Output Total 2000 1330 400 Balance -950 370 -50 Levofloxacin #8 Fluconazole # 8 Pelvic fluid collection 1+ GPC, culture no growth to date Pleural fluid Gram stain negative, no growth today CT scan of chest showing loculated right-sided pleural effusion with admixed air Laboratory Tests 03/04/18 11:51 Pleural pH 7.0 Pleural WBC 1436 Pleural RBC 07767 Pleural Neutrophils 87 Pleural LDH 3915 Pleural Glucose < 20 L - Physical Exam General Appearance: alert, no apparent distress EENT: No scleral icterus, No thrush Respiratory: other (Decreased breath sounds right base) Cardiac/Chest: regular rate, rhythm Abdomen: non-tender, other (Minimal serous appearing output in EMANI drain, midline incision intact without erythema), No distended - Line/s LUE PICC Lines: No drainage, No erythema ICD10 Worksheet Patient Problems: Problems Problem Status Onset Hiatal hernia Acute
[2018-03-05] MEDS ORDERED: POTASSIUM CL 20 MEQ TAB PO ONE (12:15)
[2018-03-05] MEDS: LORazepam 0.5 MG TAB PO PRN ×2 (12:22→21:12)
[2018-03-05] MEDS: HYDROCORTISONE 1% CREAM TP SCH ×2 (12:22→22:01)
[2018-03-05] MEDS: BENZONATATE 100 MG CAP PO PRN (21:12)
[2018-03-05] MEDS: ROSUVASTATIN CALCIUM 10 MG TAB PO SCH (21:13)
[2018-03-05] MEDS: METOPROLOL SUCCINATE XR 25 MG TAB PO SCH (21:13)
[2018-03-06] MEDS: LEVOTHYROXINE 100 MCG TAB PO SCH (05:17)
[2018-03-06 05:37] LABS: PLATELET COUNT 651 10^3/uL (150-400)
[2018-03-06] MEDS: IPRATROPIUM/ALBUTEROL 3 ML DEYVIAL IH SCH ×4 (05:41→21:48)
--- NOTE | 2018-03-06 09:16 | SOAPPROG ---
JAKOB Progress Note Assessment/Plan: Assessment/Plan: 77 Y F s/p lap hiatal hernia repair with César fundoplication. s/p laparoscopy, laparotomy with repair of gastric perforation with oversew and Dwayne patch, washout. s/p IR placed pelvic drain for abscess. Loculated chest collection, query abscess/empyema. Continues to clinically appear well, but still with leukocytosis. Afebrile, but has never mounted a fever. Dr. Weller to review imaging today and discuss plan with patient. She is hesitant for VATS, but this may be the recommendation. Continue NPO until discussion with Dr. Weller. On levaquin, fluconozole. GI ppx/perf. On PPI. Afib. In SR now. Now on Eliquis--plan for a month of anticoagulation per cards. Cough. Much improved with neb treatments. Rash. Improved. Likely contact dermatitis. Mostly on back. Wants topical solution--hydrocortisone ordered. Dispo: pending. S: feeling tired today. having the drain placed took a lot of her energy. O: sitting up, alert, nad ctab rrr abd soft, inc cdi, +BS drain serosanguinous 03/06/18 09:13 Objective: Vital Signs Temp Pulse Resp BP Pulse Ox 36.8 C 96 18 113/86 H 96 03/06/18 08:00 03/06/18 08:00 03/06/18 08:00 03/06/18 08:00 03/06/18 08:00 Microbiology 03/04/18 14:00 Gram Stain - Final Abdomen - Aspirate 03/04/18 11:51 Gram Stain - Final Thoracic Fluid - Aspirate Laboratory Results 03/06/18 05:25 03/06/18 05:25 03/05/18 03/06/18 03/07/18 05:59 05:59 05:59 Intake Total 1700 1950 Output Total 1330 1770 Balance 370 180 PT 18.6 SEC (12.0-15.0) H 03/04/18 06:10 INR 1.54 (0.83-1.16) H 03/04/18 06:10 ICD10 Worksheet Patient Problems: Problems Problem Status Onset Hiatal hernia Acute - ICD10 Problem Qualifiers (1) Hiatal hernia
[2018-03-06] MEDS: FLUCONAZOLE 100 MG TAB PO SCH (09:34)
[2018-03-06] MEDS: PANTOPRAZOLE SODIUM 40 MG TAB PO SCH (09:35)
[2018-03-06] MEDS: LOSARTAN POTASSIUM 25 MG TAB PO SCH (09:35)
--- NOTE | 2018-03-06 09:36 | PCMIDPN ---
Assessment/Plan: Assessment: Gastric perforation following César fundoplication. Now with both pelvic and thoracic collection by imaging. Although she remains afebrile her white count remains elevated and the imaging shows these areas of concern. Aggressive approach to the complex thoracic collection would be VATS. I agree that I do not see any room for empiric change in antibiotics given her multiple antibiotic allergies. Pelvic collection with GPCs on Gram stain but no growth in culture. Plan: 1. Continue both Levaquin and fluconazole. 2. Await discussion with Dr. Weller regarding next surgical steps. 03/06/18 09:33 Subjective: Patient is resting comfortably in her chair in her hospital room. accompanies her in the room. She denies any new complaints. Denies fevers or chills. Awaiting discussion with Dr. Weller about next step. Objective: Levaquin # 9 Fluconazole # 9 Vital Signs Temp Pulse Resp BP Pulse Ox 36.8 C 96 18 113/86 H 96 03/06/18 08:00 03/06/18 08:00 03/06/18 08:00 03/06/18 08:00 03/06/18 08:00 Microbiology 03/04/18 14:00 Gram Stain - Final Abdomen - Aspirate 03/04/18 11:51 Gram Stain - Final Thoracic Fluid - Aspirate Laboratory Results 03/06/18 05:25 03/06/18 05:25 03/05/18 03/06/18 03/07/18 05:59 05:59 05:59 Intake Total 1700 1950 Output Total 1330 1770 Balance 370 180 - Physical Exam General Appearance: WD/WN, alert, non-toxic Cardiac/Chest: regular rate, rhythm, No tachycardia Skin: normal color, warm/dry, No rash Neuro/Psych: alert, normal mood/affect, oriented x 3 ICD10 Worksheet Patient Problems: Problems Problem Status Onset Hiatal hernia Acute
--- NOTE | 2018-03-06 09:49 | HOSPPROG ---
Hospitalist Progress Note Assessment/Plan: 77-year-old status post lap César fundoplication on 02/20. Status post laparotomy with oversew for gastric perforation on 02/21. She has had a long complicated hospital course dealing with this. # peritonitis secondary to above, discussed with Dr. Kim and Dr. Dove * Currently on Levaquin and fluconazole * Slightly elevated white count, Dr. Weller will review films and decide with her VATS is indicated # edema: Patient has increasing edema bilateral lower extremities which she has had in the past. I reviewed her echocardiogram which showed some LVH and hyperdynamic ventricle * improved with lasix. # atrial fibrillation, now in sinus rhythm after being on diltiazem drip. On Eliquis for anticoagulation which is recommended for 30 days, however overall low risk and okay to hold for few days while we determine further need for interventions. * Continue beta-pete and Eliquis on discharge * Eliquis on hold currently due to possible intervention tomorrow * Will need outpatient Holter monitor # anxiety: pt had a good nights sleep and feels much better with low dose lorazepam. * Benadryl p.r.n. Sleep * The lorazepam as needed # acute hypoxic respiratory failure likely from atelectasis, continue IS # allergic reaction to ertapenem with rash # acute renal failure, resolved # tachycardia, sinus tach resolved with IV fluids, CT angiogram negative for PE # hypertension, currently on home meds # GE reflux disease on PPI # DVT prophylaxis currently on Eliquis for AFib # thyroid cancer status post thyroidectomy, on Synthroid # breast cancer status post right mastectomy with lymph node dissection Subjective: feels clinically a little better, edema a bit better. Objective: Vital Signs Temp Pulse Resp BP Pulse Ox 36.8 C 96 18 113/86 H 96 03/06/18 08:00 03/06/18 08:00 03/06/18 08:00 03/06/18 08:00 03/06/18 08:00 Microbiology 03/04/18 14:00 Gram Stain - Final Abdomen - Aspirate 03/04/18 11:51 Gram Stain - Final Thoracic Fluid - Aspirate Laboratory Results 03/06/18 05:25 03/06/18 05:25 03/05/18 03/06/18 03/07/18 05:59 05:59 05:59 Intake Total 1700 1950 Output Total 1330 1770 Balance 370 180 PT 18.6 SEC (12.0-15.0) H 03/04/18 06:10 INR 1.54 (0.83-1.16) H 03/04/18 06:10 - Physical Exam Constitutional: no apparent distress, obese Eyes: PERRL, EOMI Ears, Nose, Mouth, Throat: moist mucous membranes, hearing normal Cardiovascular: regular rate and rhythym, edema Respiratory: no respiratory distress, reduced air movement Gastrointestinal: soft, non-tender abdomen Skin: normal color Musculoskeletal: generalized weakness Neurologic: AAOx3 Psychiatric: interacting appropriately, not anxious ICD10 Worksheet Patient Problems: Problems Problem Status Onset Hiatal hernia Acute
[2018-03-06] MEDS: ACETAMINOPHEN 650 MG/20.3 ML UDCUP PO PRN ×2 (12:22→20:30)
--- NOTE | 2018-03-06 14:31 | ASMTCMCOM ---
CM Note CM Note Notes: 03/06/2018 Case Management Note Met w/pt during interdisciplinary rounds this morning. Pt has increasing lower extremity edema today requiring additional diuresis. There are no changes to her discharge plan. See previous case management note. Case Management d/c poc: [facility] vs [facility] home care Case Management to follow. Date Signed: 03/06/2018 02:30 PM Electronically Signed By:Mandi Palmer RN
[2018-03-06] MEDS ORDERED: LIDOCAINE 1% 300 MG/30 ML SDV ONE (16:13)
[2018-03-06] MEDS: HYDROCORTISONE 1% CREAM TP SCH ×2 (18:21→20:37)
--- NOTE | 2018-03-06 19:08 | SOAPPROG ---
SOAP Progress Note Assessment/Plan: Assessment: afebrile but markedly distended this pm/ no flatus/ decreased bs/ no tachycardia bs equal/ cor rr/ abd taunt imp: significant ileus Plan:stat 2-way 02/21/18 18:08 02/22/18 18:41 REASONABLY STABLE THIS P.M. BUT SOME EPISODES OF TACHYCARDIA UP TO 120/ABDOMEN SOFT WITH RARE BOWEL SOUNDS AND MINIMAL FLATUS/WOUND OKAY MINIMAL NG OUTPUT/TEMP 37.5 DEGREES/CHEST X-RAY STABLE/WBC NORMAL/HEMATOCRIT 40/ URINE OUTPUT GREATER THAN 1 L 02/23/18 07:02 FEELING BETTER TODAY/ AFEBRILE/ CXR WITH SMALL BILAT EFFUSIONS/ HCT 39/ CREAT .9 / UO BRISK/ NG MINIMAL ABD SOFTER, WOUND OK, RARE BS/ NO FLATUS DEVELOPED RAPID AFIB LAST PM BUT NOW CONVERTED THANKS TO IM CONSULT 03/02/18 15:57 DOING WELL AND FEELING WELL TODAY/WANTS TO GO HOME/AFEBRILE/WBC STILL ELEVATED AT 15 K WOUND OKAY/ABDOMEN SOFT/ CHEST CLEAR AND SYMMETRIC WILL CHECK ABDOMINAL CT SCAN PRIOR TO DISCHARGE BECAUSE OF THE PROLONGED WBC ELEVATION 03/06/18 19:06 SEEN THIS A A.M. WITH TRAMAINE URBINA/PLEASE REFER TO HER NOTE CHEST REVEALS BILATERAL PLEURAL EFFUSIONS WITH DULLNESS IN BOTH BASES COR REGULAR RHYTHM ABDOMEN SOFT NONTENDER WITH GOOD HEALING WOUND PATIENT REMAINS AFEBRILE WITH NO COMPLAINTS OF PAIN OR PROBLEMS/SHE IS EATING WELL/WITH NORMAL BOWEL MOVEMENTS CHEST X-RAY AND CT REVEALED BILATERAL PLEURAL EFFUSIONS, MORE COMPLEX ON THE RIGHT/THORACENTESIS AND PELVIC CULTURES WERE NO GROWTH SO FOR AND SHE IS HAVING MINIMAL DRAINAGE FROM HER PELVIC DRAIN PLAN: LEFT THERAPEUTIC THORACENTESIS FOR EVALUATION/IF THAT CAN BE CLEARED AND POSSIBLE VATS DRAINAGE OF THE RIGHT IN THE NEXT 24-48 HOURS UNLESS RESOLVING ON ITS OWN RISKS AND OPTIONS FULLY DISCUSSED THE PATIENT AND HER WHO WISHED TO PROCEED Objective: Vital Signs Temp Pulse Resp BP Pulse Ox 37.0 C 92 18 130/68 H 97 03/06/18 16:00 03/06/18 16:00 03/06/18 16:00 03/06/18 16:00 03/06/18 16:00 Microbiology 03/04/18 14:00 Gram Stain - Final Abdomen - Aspirate 03/04/18 11:51 Gram Stain - Final Thoracic Fluid - Aspirate Laboratory Results 03/06/18 05:25 03/06/18 05:25 03/05/18 03/06/18 03/07/18 05:59 05:59 05:59 Intake Total 1700 1950 250 Output Total 1330 1770 820 Balance 370 180 -570 PT 18.6 SEC (12.0-15.0) H 03/04/18 06:10 INR 1.54 (0.83-1.16) H 03/04/18 06:10 ICD10 Worksheet Patient Problems: Problems Problem Status Onset Hiatal hernia Acute
[2018-03-06] MEDS: ROSUVASTATIN CALCIUM 10 MG TAB PO SCH (20:29)
[2018-03-06] MEDS: METOPROLOL SUCCINATE XR 25 MG TAB PO SCH (20:29)
[2018-03-06] MEDS: LORazepam 0.5 MG TAB PO PRN (20:31)
[2018-03-07] MEDS: IPRATROPIUM/ALBUTEROL 3 ML DEYVIAL IH SCH ×3 (05:03→17:39)
[2018-03-07] MEDS: LEVOTHYROXINE 100 MCG TAB PO SCH (05:10)
[2018-03-07 05:32] LABS: PLATELET COUNT 618 10^3/uL (150-400)
[2018-03-07] MEDS: PANTOPRAZOLE SODIUM 40 MG TAB PO SCH (08:35)
[2018-03-07] MEDS: LOSARTAN POTASSIUM 25 MG TAB PO SCH (08:36)
[2018-03-07] MEDS: FLUCONAZOLE 100 MG TAB PO SCH (08:37)
[2018-03-07] MEDS: HYDROCORTISONE 1% CREAM TP SCH ×2 (08:37→22:30)
--- NOTE | 2018-03-07 11:57 | HOSPPROG ---
Hospitalist Progress Note Assessment/Plan: 77-year-old status post lap César fundoplication on 02/20. Status post laparotomy with oversew for gastric perforation on 02/21. She has had a long complicated hospital course dealing with this. # peritonitis secondary to above, discussed with Dr. Kim and Dr. Dove * Currently on Levaquin and fluconazole # Loculated pleural effusion on right. Left side drained of 800mls. Possible VATs on right per Dr. Weller. * # edema: Patient has increasing edema bilateral lower extremities which she has had in the past. I reviewed her echocardiogram which showed some LVH and hyperdynamic ventricle * improved with lasix. * add daily lasix for tomorrow for 3 days. # atrial fibrillation, now in sinus rhythm after being on diltiazem drip. On Eliquis for anticoagulation which is recommended for 30 days, however overall low risk and okay to hold for few days while we determine further need for interventions. * Continue beta-pete and Eliquis on discharge * Eliquis on hold currently due to possible intervention tomorrow * Will need outpatient Holter monitor # anxiety: pt had a good nights sleep and feels much better with low dose lorazepam. * Benadryl p.r.n. Sleep * The lorazepam as needed # acute hypoxic respiratory failure likely from atelectasis, continue IS # allergic reaction to ertapenem with rash # acute renal failure, resolved # tachycardia, sinus tach resolved with IV fluids, CT angiogram negative for PE # hypertension, currently on home meds # GE reflux disease on PPI # DVT prophylaxis currently on Eliquis for AFib # thyroid cancer status post thyroidectomy, on Synthroid # breast cancer status post right mastectomy with lymph node dissection dispo: Possible VATs later today, will need ongoing hospital care for a few days to monitor clinically how she is and follow up cultures from thoracentesis. LOT of abx per ID. Subjective: slept ok. still having a lot of edema Objective: Vital Signs Temp Pulse Resp BP Pulse Ox 37.1 C 93 20 130/71 H 94 03/07/18 11:23 03/07/18 11:23 03/07/18 11:23 03/07/18 11:23 03/07/18 11:23 Microbiology 03/06/18 17:20 Gram Stain - Final Pleural Fluid - Aspirate 03/04/18 14:00 Gram Stain - Final Abdomen - Aspirate 03/04/18 11:51 Gram Stain - Final Thoracic Fluid - Aspirate Laboratory Results 03/07/18 05:15 03/07/18 05:15 03/06/18 03/07/18 03/08/18 05:59 05:59 05:59 Intake Total 1950 600 Output Total 1770 1530 Balance 180 -930 PT 18.6 SEC (12.0-15.0) H 03/04/18 06:10 INR 1.54 (0.83-1.16) H 03/04/18 06:10 - Physical Exam Constitutional: not in pain, chronically ill appearing Eyes: PERRL, anicteric sclera Ears, Nose, Mouth, Throat: moist mucous membranes, hearing normal Cardiovascular: regular rate and rhythym Respiratory: no respiratory distress, reduced air movement Gastrointestinal: other (soft with mild tenderness, positive bowel sounds.) Skin: warm Neurologic: AAOx3 Psychiatric: interacting appropriately ICD10 Worksheet Patient Problems: Problems Problem Status Onset Hiatal hernia Acute
--- NOTE | 2018-03-07 12:25 | SOAPPROG ---
SOAP Progress Note Assessment/Plan: Assessment: afebrile but markedly distended this pm/ no flatus/ decreased bs/ no tachycardia bs equal/ cor rr/ abd taunt imp: significant ileus Plan:stat 2-way 02/21/18 18:08 02/22/18 18:41 REASONABLY STABLE THIS P.M. BUT SOME EPISODES OF TACHYCARDIA UP TO 120/ABDOMEN SOFT WITH RARE BOWEL SOUNDS AND MINIMAL FLATUS/WOUND OKAY MINIMAL NG OUTPUT/TEMP 37.5 DEGREES/CHEST X-RAY STABLE/WBC NORMAL/HEMATOCRIT 40/ URINE OUTPUT GREATER THAN 1 L 02/23/18 07:02 FEELING BETTER TODAY/ AFEBRILE/ CXR WITH SMALL BILAT EFFUSIONS/ HCT 39/ CREAT .9 / UO BRISK/ NG MINIMAL ABD SOFTER, WOUND OK, RARE BS/ NO FLATUS DEVELOPED RAPID AFIB LAST PM BUT NOW CONVERTED THANKS TO IM CONSULT 03/02/18 15:57 DOING WELL AND FEELING WELL TODAY/WANTS TO GO HOME/AFEBRILE/WBC STILL ELEVATED AT 15 K WOUND OKAY/ABDOMEN SOFT/ CHEST CLEAR AND SYMMETRIC WILL CHECK ABDOMINAL CT SCAN PRIOR TO DISCHARGE BECAUSE OF THE PROLONGED WBC ELEVATION 03/06/18 19:06 SEEN THIS A A.M. WITH TRAMAINE URBINA/PLEASE REFER TO HER NOTE CHEST REVEALS BILATERAL PLEURAL EFFUSIONS WITH DULLNESS IN BOTH BASES COR REGULAR RHYTHM ABDOMEN SOFT NONTENDER WITH GOOD HEALING WOUND PATIENT REMAINS AFEBRILE WITH NO COMPLAINTS OF PAIN OR PROBLEMS/SHE IS EATING WELL/WITH NORMAL BOWEL MOVEMENTS CHEST X-RAY AND CT REVEALED BILATERAL PLEURAL EFFUSIONS, MORE COMPLEX ON THE RIGHT/THORACENTESIS AND PELVIC CULTURES WERE NO GROWTH SO FOR AND SHE IS HAVING MINIMAL DRAINAGE FROM HER PELVIC DRAIN PLAN: LEFT THERAPEUTIC THORACENTESIS FOR EVALUATION/IF THAT CAN BE CLEARED AND POSSIBLE VATS DRAINAGE OF THE RIGHT IN THE NEXT 24-48 HOURS UNLESS RESOLVING ON ITS OWN RISKS AND OPTIONS FULLY DISCUSSED THE PATIENT AND HER WHO WISHED TO PROCEED 03/07/18 12:20 better after left thorascentesis/ still loculated effusion on the right/ afebrile/ risks and options fullly discussed/ wbc 13k plan proceed with right vats today Objective: Vital Signs Temp Pulse Resp BP Pulse Ox 37.1 C 93 20 130/71 H 94 03/07/18 11:23 03/07/18 11:23 03/07/18 11:23 03/07/18 11:23 03/07/18 11:23 Microbiology 03/06/18 17:20 Gram Stain - Final Pleural Fluid - Aspirate 03/04/18 14:00 Gram Stain - Final Abdomen - Aspirate 03/04/18 11:51 Gram Stain - Final Thoracic Fluid - Aspirate Laboratory Results 03/07/18 05:15 03/07/18 05:15 03/06/18 03/07/18 03/08/18 05:59 05:59 05:59 Intake Total 1950 600 Output Total 1770 1530 Balance 180 -930 PT 18.6 SEC (12.0-15.0) H 03/04/18 06:10 INR 1.54 (0.83-1.16) H 03/04/18 06:10 ICD10 Worksheet Patient Problems: Problems Problem Status Onset Hiatal hernia Acute
[2018-03-07] MEDS ORDERED: LR 1,000 ML IV ONE (15:37)
[2018-03-07] MEDS ORDERED: MIDAZOLAM 2 MG/2 ML VIAL IVP ONE (17:44)
[2018-03-07] MEDS ORDERED: NALOXONE HCL 0.4 MG/ML INJ IVP PRN (17:46)
[2018-03-07] MEDS ORDERED: HYDROmorphONE/DILAUDID 2 MG/ML INJ IVP PRN (17:46)
[2018-03-07] MEDS ORDERED: ONDANSETRON 4 MG/2 ML VIAL IVP PRN ×2 (17:46→20:24)
--- NOTE | 2018-03-07 17:46 | PDANEPAE ---
ANE History of Present Illness R VATS ANE Past Medical History - Cardiovascular History Hx Hypertension: Yes Hx Arrhythmias: Yes Hx Chest Pain: No Hx Coronary Artery / Peripheral Vascular Disease: No Hx CHF / Valvular Disease: No Hx Palpitations: Yes Cardiovascular History Comment: HYPERLIPIDEMIA. SVTs - Pulmonary History Hx COPD: No Hx Asthma/Reactive Airway Disease: No Hx Recent Upper Respiratory Infection: No Hx Oxygen in Use at Home: No Hx Sleep Apnea: No Sleep Apnea Screening Result - Last Documented: Negative Pulmonary History Comment: SOB OCCAS. PNEUMONIA 2-3 X YRS AGO. HX ASTHMA YRS AGO - NO PROBLEM RECENTLY - Neurologic History Hx Cerebrovascular Accident: No Hx Seizures: No Hx Dementia: No - Endocrine History Hx Diabetes: No Endocrine History Comment: THYROIDECTOMY - Renal History Hx Renal Disorders: No - Liver History Hx Hepatic Disorders: No - Neurological & Psychiatric Hx Hx Neurological and Psychiatric Disorders: No - Cancer History Hx Cancer: Yes Cancer History Comment: THYROID CA. BREAST CA - Congenital Disorder History Hx Congenital Disorders: No - GI History Hx Gastrointestinal Disorders: Yes Gastrointestinal History Comment: GERD. COLECTOMY - DIVERTICULITIS - Other Health History Other Health History: BRUISES EASILY - Chronic Pain History Chronic Pain: Yes (CINDY KNEES) - Surgical History Prior Surgeries: TONSILLECTOMY. THUMB JOINT REPAIR L. HAMMER TOE L. D&C. FIBROID TUMORS. LUMPECTOMY R. MASTECTOMY R. THYROIDECTOMY. COLECTOMY. ABD HERNIA REPAIR ANE Review of Systems Review of Systems: - Exercise capacity METS (RN): 3 METS ANE Patient History - Allergies Allergies/Adverse Reactions: ertapenem Allergy (Severe, Verified 02/24/18 10:06) Rash Penicillins Allergy (Intermediate, Verified 02/20/18 08:04) Rash codeine Allergy (Mild, Verified 02/20/18 08:04) nausea Sulfa (Sulfonamide Antibiotics) Allergy (Mild, Verified 02/20/18 08:04) Rash - Home Medications Home Medications: Calcium Carbonate [Oyster Shell Calcium 500 mg (*)] 500 mg PO DAILY 02/16/18 [ Last Taken 02/16/18] Cholecalciferol Vit D3 [Vitamin D3 (*)] 1,000 units PO DAILY 02/16/18 [Last Taken 02/16/18] Herbals/Supplements -Info Only 1 ea PO DAILY 02/16/18 [Last Taken 02/16/18] Ibuprofen [Motrin (*)] 200 mg PO DAILY 02/16/18 [Last Taken 02/13/18] Levothyroxine [Synthroid 100 mcg (*)] 100 mcg PO DAILY06 02/16/18 [Last Taken 06:00] Losartan Potassium [Cozaar 25 mg (*)] 25 mg PO DAILY 02/16/18 [Last Taken 12:00] Metoprolol Succinate Xr [Toprol Xl 25 mg (*)] 37.5 mg PO HS 02/16/18 [Last Taken 02/19/18 22:00] Multivitamins [Multivitamin (*)] 1 each PO DAILY 02/16/18 [Last Taken 02/16/18] Rosuvastatin Calcium [Crestor 10mg (RX)] 10 mg PO HS 02/16/18 [Last Taken 22:00] - NPO status NPO Since - Liquids (Date): 03/07/18 NPO Since - Liquids (Time): 10:30 NPO Since - Solids (Date): 03/07/18 NPO Since - Solids (Time): 10:30 - Smoking Hx Smoking Status: Former smoker - Alcohol Use Alcohol Use: Occasionally (3-4 drinks per week) - Family Anes Hx Family Hx Anesthesia Complications: NEG ANE Labs/Vital Signs - Labs Result Diagrams: 03/07/18 05:15 03/07/18 05:15 - Vital Signs Blood Pressure: 140/75 Heart Rate: 104 Respiratory Rate: 16 O2 Sat (%): 94 Height: 156.21 cm Weight: 80.6 kg ANE Physical Exam - Airway Neck exam: FROM Mallampati Score: Class 2 Mouth exam: normal dental/mouth exam - Pulmonary Pulmonary: clear to auscultation - Cardiovascular Cardiovascular: regular rate and rhythym - ASA Status ASA Status: III ANE Anesthesia Plan Anesthesia Plan: general endotracheal anesthesia Specialized Airway: double lumen tube
[2018-03-07] MEDS ORDERED: BUPIVACAINE 0.5% 30 ML SDV ONE (18:12)
[2018-03-07] MEDS ORDERED: EPINEPHrine 1 MG/ML INJ ONE (18:12)
[2018-03-07] MEDS ORDERED: PROPOFOL 200 MG/20 ML VIAL ONE (18:36)
[2018-03-07] MEDS ORDERED: ROCURONIUM 50 MG/5 ML VIAL ONE (18:38)
[2018-03-07] MEDS ORDERED: fentaNYL 100 MCG/2 ML INJ ONE ×3 (18:38→20:40)
[2018-03-07] MEDS ORDERED: ONDANSETRON 4 MG/2 ML VIAL ONE (19:08)
[2018-03-07] MEDS ORDERED: RANITIDINE 50 MG/2 ML VIAL ONE (19:09)
[2018-03-07] MEDS ORDERED: DEXAMETHASONE 4 MG/ML VIAL ONE (19:09)
[2018-03-07] MEDS ORDERED: SUGAMMADEX SODIUM 200 MG/2 ML VIAL IVP ONE (20:02)
--- NOTE | 2018-03-07 20:22 | POSTOPPROG ---
Post Op Note Date of Operation: 03/07/18 Surgeon: Ab Weller Launch Operator: josé miguel Anesthesiologist: andrea Anesthesia: GET(General Endotracheal) Pre-op Diagnosis: rt empyema Post-op Diagnosis: same Indication: pain Procedure: right vats drainage and decortication RLL Findings: entrapped RLL Inf/Abcess present in the surg proc area at time of surgery?: Yes Depth: Organ Space EBL: Minimal Complications: 0 Drains: Constavac Specimen(s): cultures and pleural bx
[2018-03-07] MEDS ORDERED: ONDANSETRON DISINTEGRATING 4 MG TAB PO PRN (20:24)
--- NOTE | 2018-03-07 20:25 | POSTOPPROG ---
Post Op Note Date of Operation: 03/07/18 Surgeon: Ab Weller Government Operations Consultant: Jerica Cam Anesthesiologist: Cali Joshua Anesthesia: GET(General Endotracheal) Pre-op Diagnosis: R empyema Post-op Diagnosis: same Indication: 77 Y F s/p gastric perf p hiatal hernia repair c loculated lung collection. Procedure: R VATS c R minithoracotomy, drainage, decortication, and washout. Findings: thin light brown fluid c gelatinous residue in lower lung. apex clean. Inf/Abcess present in the surg proc area at time of surgery?: Yes Depth: Organ Space EBL: 50-100 Complications: none Drains: Other (2 28 Fr chest tubes) Specimen(s): tissue and fluid sent for culture.
[2018-03-07] MEDS ORDERED: D5W 1/2 NS W/ 20 KCl/L 1,000 ML IV SCH (20:30)
--- NOTE | 2018-03-07 20:37 | POSTANESTH ---
Post Anesthetic Evaluation Cardiovascular Status: Normal, Stable Respiratory Status: Similar to Pre-op Cond. Level of Consciousness/Mental Status: Alert and Oriented Pain Control: Adequate, Prn Tx Ordered Nausea/Vomiting Control: Adequate, Prn Tx Ordered Complications Possibly Related to Anesthesia: None Noted
[2018-03-07] MEDS: fentaNYL 100 MCG/2 ML INJ IVP PRN ×3 (20:41→21:28)
[2018-03-07] MEDS: GUAIFENESIN/DM 10 ML UDCUP PO PRN (21:17)
[2018-03-07] MEDS: ROSUVASTATIN CALCIUM 10 MG TAB PO SCH (22:26)
[2018-03-07] MEDS: BENZONATATE 100 MG CAP PO PRN (22:26)
[2018-03-07] MEDS: CEPACOL LOZENGE PO PRN (22:26)
[2018-03-07] MEDS: KETOROLAC 15 MG/1 ML SDV IVP SCH (22:27)
[2018-03-07] MEDS: METOPROLOL SUCCINATE XR 25 MG TAB PO SCH (22:30)
[2018-03-08] MEDS: CEPACOL LOZENGE PO PRN ×2 (00:04→05:53)
[2018-03-08] MEDS: KETOROLAC 15 MG/1 ML SDV IVP SCH ×4 (01:23→18:17)
[2018-03-08] MEDS: IPRATROPIUM/ALBUTEROL 3 ML DEYVIAL IH SCH ×5 (02:27→22:35)
[2018-03-08] MEDS: ACETAMINOPHEN 650 MG/20.3 ML UDCUP PO PRN ×3 (03:12→21:51)
[2018-03-08] MEDS: GUAIFENESIN/DM 10 ML UDCUP PO PRN (03:12)
[2018-03-08 03:42] LABS: PLATELET COUNT 695 10^3/uL (150-400)
[2018-03-08] MEDS: LEVOTHYROXINE 100 MCG TAB PO SCH (05:39)
--- NOTE | 2018-03-08 07:58 | SOAPPROG ---
SOAP Progress Note Assessment/Plan: Assessment/Plan: 77 Y F s/p lap hiatal hernia repair with César fundoplication. s/p laparoscopy, laparotomy with repair of gastric perforation with oversew and Dwayne patch, washout. s/p IR placed pelvic drain for abscess. s/p L thoracentesis, 800cc out. s/p R VATS c minithoracotomy with washout and decortication. POD#1 s/p minithoracotomy. +contaminated fluid and gelatinous material washed out. Lung expanded well. No air leak. Continue chest tube drainage. CXR films reviewed with Dr. Weller this am. WBC's up today but suspect this just to surgical stress and washout. Suspect it to trend down now. Regular diet. On levaquin, fluconozole. GI ppx/perf. On PPI. Afib. In SR now. Restart eliquis tomorrow. Dispo: pending. S: surprised that she feels pretty good this morning. pain controlled. sitting up oob in chair. O: sitting up, alert, nad R sided rhonchi--probably related mostly to the chest tubes on suction. no air leak. min decreased L base. abd soft, inc cdi, +BS drain serosanguinous 03/08/18 07:54 Objective: Vital Signs Temp Pulse Resp BP Pulse Ox 36.6 C 73 16 107/61 97 03/08/18 07:48 03/08/18 07:48 03/08/18 07:48 03/08/18 07:48 03/08/18 07:48 Microbiology 03/04/18 14:00 Gram Stain - Final Abdomen - Aspirate 03/06/18 17:20 Gram Stain - Final Pleural Fluid - Aspirate 03/04/18 11:51 Gram Stain - Final Thoracic Fluid - Aspirate Laboratory Results 03/08/18 03:30 03/08/18 03:30 03/07/18 03/08/18 03/09/18 05:59 05:59 05:59 Intake Total 600 1950 Output Total 1530 716 Balance -930 1234 PT 18.6 SEC (12.0-15.0) H 03/04/18 06:10 INR 1.54 (0.83-1.16) H 03/04/18 06:10 ICD10 Worksheet Patient Problems: Problems Problem Status Onset Hiatal hernia Acute - ICD10 Problem Qualifiers (1) Hiatal hernia
[2018-03-08] MEDS: HYDROCORTISONE 1% CREAM TP SCH ×2 (09:57→21:59)
[2018-03-08] MEDS: LOSARTAN POTASSIUM 25 MG TAB PO SCH (09:57)
[2018-03-08] MEDS: PANTOPRAZOLE SODIUM 40 MG TAB PO SCH (09:57)
[2018-03-08] MEDS: FLUCONAZOLE 100 MG TAB PO SCH (09:57)
[2018-03-08] MEDS ORDERED: FUROSEMIDE 20 MG/2 ML VIAL IVP ONE (11:51)
[2018-03-08] MEDS ORDERED: LIDO/EPI 1% **Not for Epidural 20 ML MDV NB ONE (14:59)
[2018-03-08] MEDS ORDERED: BISACODYL 10 MG SUPP PR PRN (16:16)
[2018-03-08] MEDS ORDERED: MAGNESIUM HYDROXIDE 30 ML UDCUP PO PRN (16:16)
--- NOTE | 2018-03-08 19:10 | PCMIDPN ---
Assessment/Plan: Assessment/Plan: * Gastric perforation status post César fundoplication with postoperative fluid collections and leukocytosis: Percutaneous fluid collection now with growth of Streptococcus intermedius and Streptococcus sanguinous. These streptococcal species will be less reliably covered by levofloxacin then by beta -lactam or vancomycin. Discussed with patient risks and benefits of vancomycin versus trial of ceftriaxone based on previous allergic reaction to both penicillin and ertapenem. She favors trial of ceftriaxone given risk of nephrotoxicity with vancomycin. Will premedicate with Benadryl and begin ceftriaxone 2 g IV daily in a.m.. Will discontinue levofloxacin. Will also discontinue fluconazole given no growth of yeast. * Empyema status post VATS: Gram stain of tissue shows gram-negative coccobacilli with cultures currently pending. Considerations include oral, enteric jarret or anaerobic jarret. Acinetobacter is also morphologically a gram- negative coccobacillus; this organism can be more drug-resistant but will not modify therapy until additional information available regarding isolate given clinical stability. Clinical findings reviewed with Dr. Singer. Time spent, greater than 35 min, of which greater than half was spent in education/counseling/coordination of care related to pelvic abscess and empyema with plan of care including trial of ceftriaxone. Care coordinated with hospitalist and pharmacy. 03/08/18 19:06 Subjective: Patient with some bleeding post VATS. Additional sutures have been added. Less pelvic pain. Objective: Vital Signs Temp Pulse Resp BP Pulse Ox 36.6 C 85 29 H 106/63 96 03/08/18 15:33 03/08/18 17:30 03/08/18 17:30 03/08/18 15:33 03/08/18 17:30 Microbiology 03/04/18 14:00 Gram Stain - Final Abdomen - Aspirate 03/07/18 19:39 Gram Stain - Final Lung - Tissue 03/07/18 19:39 Gram Stain - Final Lung - Eswab 03/06/18 17:20 Gram Stain - Final Pleural Fluid - Aspirate 03/04/18 11:51 Gram Stain - Final Thoracic Fluid - Aspirate Laboratory Results 03/08/18 18:30 03/08/18 03:30 03/07/18 03/08/18 03/09/18 05:59 05:59 05:59 Intake Total 600 1950 1080 Output Total 1530 716 Balance -930 1234 1080 Levofloxacin # 11 Fluconazole # 11 Pelvic abscess with growth of Streptococcus intermedius in Streptococcus sanguinous Pleural tissue with gram-negative coccobacilli on Gram stain - Physical Exam General Appearance: alert, no apparent distress EENT: No scleral icterus, No thrush Respiratory: other (Decreased breath sounds on right) Cardiac/Chest: regular rate, rhythm Abdomen: tender (Mild in lower quadrant), No distended Skin: No rash ICD10 Worksheet Patient Problems: Problems Problem Status Onset Hiatal hernia Acute
--- NOTE | 2018-03-08 19:12 | HOSPPROG ---
Hospitalist Progress Note Assessment/Plan: Assessment/Plan: 77-year-old p/w acute peritonitis 2/2 gastric perforation (02/21) s/p lap César fundoplication on 02/20 c/b loculated R pleural effusion requiring VATs (03/07) # peritonitis secondary acute gastric perforation, s/p oversew by gen surg -d/w Dr. Dove, he recommends adding Vanco to cover strep organisms growing in fluid, he will d/w patient -cont on levaquin and fluconazole, will likely need PICC/IV Abx on discharge # loculated pleural effusions: s/p left side drained of 800mls, VATs R side w/ ongoing chest tube mgmt under direction of Dr. Weller # acute blood loss anemia: new problem to this provider, further w/u indicated. Ongoing bleeding around the R chest tube sites w/ resultant acute drop in Hgb 10.8 to 8.8 -d/w Dr. Weller/Jerica Cam, they report they will add suture and gauge effect -hold on transfusion unless ongoing bleeding and Hgb < 8 -repeat CBC/coags in AM, sooner if bleeding not resolved w/ suturing # acute diastolic CHF exacerbation: evidenced by LE edema, LVH on Echo, / IVF -give lasix 20mg IV now, repeat in AM, monitor lytes/weights/I/O # acute atelectasis: present on CXR, IS # atrial fibrillation, new diagnosis: now in sinus rhythm after being on diltiazem drip, transitioned to bblocker -hold on systemic anticoagulation given bleeding above -outpt 30-day event monitor to gauge burden/recurrence # anxiety: pt had a good nights sleep and feels much better with low dose lorazepam. -benadryl/ativan PRN # acute hypoxic respiratory failure: evidenced by objective tachypnea + SpO2 73 % on room air + high-o2 needs up to 10LPM + symptomatic shortness of breath, likely 2/2 pleural effusions, gastric perf -cont on 2LPM, will likely need o2 at discharge # allergic reaction to ertapenem with rash # acute renal failure, resolved # tachycardia, sinus tach resolved with IV fluids, CT angiogram negative for PE # hypertension, currently on home meds # GE reflux disease on PPI # DVT prophylaxis: hold pharm 2/2 bleed, SCDs # thyroid cancer status post thyroidectomy, on Synthroid # breast cancer status post right mastectomy with lymph node dissection diet. regular code. full dispo. ADD uncertain Subjective: patient worried about chest bleed, LE edema Objective: Vital Signs Temp Pulse Resp BP Pulse Ox 36.6 C 85 29 H 106/63 96 03/08/18 15:33 03/08/18 17:30 03/08/18 17:30 03/08/18 15:33 03/08/18 17:30 Microbiology 03/04/18 14:00 Gram Stain - Final Abdomen - Aspirate 03/07/18 19:39 Gram Stain - Final Lung - Tissue 03/07/18 19:39 Gram Stain - Final Lung - Eswab 03/06/18 17:20 Gram Stain - Final Pleural Fluid - Aspirate 03/04/18 11:51 Gram Stain - Final Thoracic Fluid - Aspirate Laboratory Results 03/08/18 18:30 03/08/18 03:30 03/07/18 03/08/18 03/09/18 05:59 05:59 05:59 Intake Total 600 1950 1080 Output Total 1530 716 Balance -930 1234 1080 PT 18.6 SEC (12.0-15.0) H 03/04/18 06:10 INR 1.54 (0.83-1.16) H 03/04/18 06:10 - Physical Exam Constitutional: no apparent distress, appears nourished, not in pain, uncomfortable Cardiovascular: systolic murmur (I/ at sternum/apex), edema (2+ bilat LE), No irregularly irregular, No tachycardia Respiratory: inspiratory crackles (bilat bases), No reduced air movement, No expiratory wheeze, No bronchial breath sounds, No respiratory distress Gastrointestinal: normoactive bowel sounds, soft, non-tender abdomen, no palpable masses, No distension Skin: other (bleeding and clots coming from R chest tube site, light ooze, no erythema/induration/fluctuance/minimal tenderness) Neurologic: AAOx3 Psychiatric: interacting appropriately, not anxious, not encephalopathic, thought process linear ICD10 Worksheet Patient Problems: Problems Problem Status Onset Hiatal hernia Acute
[2018-03-08] MEDS: SENNOSIDES/DOCUSATE SODIUM TAB PO SCH (21:49)
[2018-03-08] MEDS: ROSUVASTATIN CALCIUM 10 MG TAB PO SCH (21:49)
[2018-03-08] MEDS: METOPROLOL SUCCINATE XR 25 MG TAB PO SCH (21:49)
[2018-03-08] MEDS: LORazepam 0.5 MG TAB PO PRN (22:55)
[2018-03-09] MEDS: KETOROLAC 15 MG/1 ML SDV IVP SCH ×4 (00:01→17:55)
[2018-03-09] MEDS: LEVOTHYROXINE 100 MCG TAB PO SCH (05:01)
[2018-03-09] MEDS: IPRATROPIUM/ALBUTEROL 3 ML DEYVIAL IH SCH ×4 (05:37→22:13)
[2018-03-09] MEDS: ALTEPLASE 2 MG VIAL IVP PRN ×2 (05:50→05:53)
[2018-03-09 07:34] LABS: INR 1.38 (0.83-1.16); PLATELET COUNT 610 10^3/uL (150-400); PROTIME(PATIENT) 17.1 SEC (12.0-15.0)
[2018-03-09] MEDS: SENNOSIDES/DOCUSATE SODIUM TAB PO SCH ×2 (08:56→21:24)
[2018-03-09] MEDS: PANTOPRAZOLE SODIUM 40 MG TAB PO SCH (08:57)
[2018-03-09] MEDS: LOSARTAN POTASSIUM 25 MG TAB PO SCH (08:57)
[2018-03-09] MEDS: cefTRIAXone 2 GM in STERILE WATER INJ 20 ML IV SCH ×2 (08:57→10:00)
[2018-03-09] MEDS: HYDROCORTISONE 1% CREAM TP SCH ×2 (09:06→21:46)
--- NOTE | 2018-03-09 09:26 | SOAPPROG ---
SOAP Progress Note Assessment/Plan: Assessment: 77 y/o F s/p lap damaso fundoplication 02/20 S/p laparotomy with oversew for gastric perforation 02/21 S/p allergic reaction to invanz 02/23. Now on levaquin and fluconazole. s/p IR placed pelvic drain for abscess. s/p L thoracentesis, 800cc out. s/p R VATS c minithoracotomy with washout and decortication S/p chest tube insertion site purse string sutures for bleeding A-fib: in sinus rhythm now S: Feeling better. Denies more bleeding from chest tube site. Pain well controlled. Feeling bloated, hasn't had a BM since most recent procedure 2 days ago. O:Alert Afebrile WBC down to 15 today. Chest xray stable RRR Chest: R sided rhonchi, otherwise CTA bilaterally, chest tube to LWS, no air leak Abdomen: soft, but distended. hypoactive bowel sounds. Plan: Restart eliquis today for a-fib. Continue chest tube to LWS. Repeat chest xray tomorrow am. Miralax for constipation. 03/09/18 09:21 Objective: Vital Signs Temp Pulse Resp BP Pulse Ox 36.8 C 83 20 93/49 L 99 03/09/18 07:38 03/09/18 07:38 03/09/18 07:38 03/09/18 07:38 03/09/18 07:38 Microbiology 03/04/18 14:00 Gram Stain - Final Abdomen - Aspirate 03/07/18 19:39 Gram Stain - Final Lung - Tissue 03/07/18 19:39 Gram Stain - Final Lung - Eswab 03/06/18 17:20 Gram Stain - Final Pleural Fluid - Aspirate Laboratory Results 03/09/18 07:05 03/09/18 07:05 03/08/18 03/09/18 03/10/18 05:59 05:59 05:59 Intake Total 1950 1080 Output Total 716 214 Balance 1234 866 PT 17.1 SEC (12.0-15.0) H 03/09/18 07:05 INR 1.38 (0.83-1.16) H 03/09/18 07:05 ICD10 Worksheet Patient Problems: Problems Problem Status Onset Hiatal hernia Acute
[2018-03-09] MEDS: POLYETHYLENE GLYCOL 3350 17 GM PKT PO SCH (10:00)
--- NOTE | 2018-03-09 10:45 | PCMIDPN ---
Assessment/Plan: Assessment: Gastric perforation following César fundoplication. Now with both pelvic and thoracic collection by imaging. Patient has had the pelvic collection drained and cultured. Multiple streptococci growing from that collection. The thoracic collection was drained via VATS. This complex collection was sampled and the cell counts are very close to hold blood. Glucose levels of 110 probably argue against this being a christine empyema. However the Gram stain of 2 samples reveal significant amounts of gram-negative coccobacilli. No growth in culture yet. At this point the patient is tolerating ceftriaxone. Her white blood cell count is improved. Physically she is getting stronger and she showing no signs of fevers. At this point we will plan to continue the monotherapy with ceftriaxone and follow the cultures of the thoracic fluid going forward. Plan: 1. Continue ceftriaxone. 2. Follow-up chest x-ray and further clinical indicators. Subjective: Patient is resting in her chair in her hospital room. Her daughter is present as well. She continues to deny any fevers or chills. She states she is more energetic. She is tolerating the ceftriaxone with Benadryl premedication 0.5 hr prior to dose. She continues to have a slight right upper quadrant or right lower chest discomfort which is not very intense. Objective: Ceftriaxone # 2 Vital Signs Temp Pulse Resp BP Pulse Ox 36.8 C 83 20 93/49 L 99 03/09/18 07:38 03/09/18 07:38 03/09/18 07:38 03/09/18 07:38 03/09/18 07:38 Microbiology 03/07/18 19:39 Gram Stain - Final Lung - Tissue 03/07/18 19:39 Gram Stain - Final Lung - Eswab 03/04/18 14:00 Gram Stain - Final Abdomen - Aspirate 03/06/18 17:20 Gram Stain - Final Pleural Fluid - Aspirate Laboratory Results 03/09/18 07:05 03/09/18 07:05 03/08/18 03/09/18 03/10/18 05:59 05:59 05:59 Intake Total 1950 1080 400 Output Total 716 214 Balance 1234 866 400 - Physical Exam General Appearance: WD/WN, alert, no apparent distress, non-toxic Respiratory: lungs clear, normal breath sounds, No respiratory distress Cardiac/Chest: regular rate, rhythm, No tachycardia Extremities: non-tender, normal inspection Abdomen: non-tender, soft, No mass Skin: normal color, warm/dry, No rash Neuro/Psych: alert, normal mood/affect, oriented x 3 ICD10 Worksheet Patient Problems: Problems Problem Status Onset Hiatal hernia Acute
--- NOTE | 2018-03-09 12:48 | ASMTCMCOM ---
CM Note CM Note Notes: Pts case discussed in morning rounds. It is uncertain as to when pt will d/c. It has been determined that pt will need care home ivabx. CM met w/ pt and family for dispo planning. The family's wish is for pt to d/c home w/ [facility] services when medically stable. Family would like referrals made to home infusion companies. CM to follow. Plan: Most likely [facility] HH w/ supportive family Date Signed: 03/09/2018 12:48 PM Electronically Signed By:JOSE Curran
--- NOTE | 2018-03-09 16:07 | HOSPPROG ---
Hospitalist Progress Note Assessment/Plan: Assessment/Plan: 77-year-old p/w acute peritonitis 2/2 gastric perforation (02/21) s/p lap César fundoplication (02/20) c/b loculated R pleural effusion requiring VATs (03/07) # peritonitis secondary acute gastric perforation, s/p oversew by gen surg -drain out, cont CTX 2g daily # actinomyces empyema and pleural effusions: s/p left side drained of 800mls, VATs R side 03/07 w/ ongoing output -cont on CTX # acute blood loss anemia: bleeding stabilized around chest tube site, no further today -hold on blood transfusion today, monitor Hgb # acute diastolic CHF exacerbation: evidenced by LE edema, LVH on Echo, 2/2 IVF -good UOP w/ lasix 03/08, remains net positive -borderline BPs preclude active diuresis today, will hold ARB and plan on continuing IV lasix 03/10 AM # acute atelectasis: present on CXR, IS # atrial fibrillation, new diagnosis: now in sinus rhythm after being on diltiazem drip, transitioned to bblocker -tele personally interpreted, currently in sinus arrhythmia -d/w Dr. Weller, we agreed that bleed risk remains elevated and will hold on starting eliquis -outpt 30-day event monitor to gauge burden/recurrence # anxiety: pt had a good nights sleep and feels much better with low dose lorazepam. -benadryl/ativan PRN # acute hypoxic respiratory failure: evidenced by objective tachypnea + SpO2 73 % on room air + high-o2 needs up to 10LPM + symptomatic shortness of breath, likely 2/2 pleural effusions, gastric perf -cont on 2LPM, will likely need o2 at discharge # allergic reaction to ertapenem with rash # acute renal failure, resolved # tachycardia, sinus tach resolved with IV fluids, CT angiogram negative for PE # hypertension, hold ARB in AM # GE reflux disease on PPI # DVT prophylaxis: hold pharm 2/2 bleed, SCDs # thyroid cancer status post thyroidectomy, on Synthroid # breast cancer status post right mastectomy with lymph node dissection diet. regular code. full dispo. ADD uncertain High-level medical complexity, high risk for worsening morbidity and/or mortality secondary to the issues as outlined above. Subjective: less swelling in legs today, no bleeding R chest Objective: Vital Signs Temp Pulse Resp BP Pulse Ox 36.6 C 88 18 98/59 L 99 03/09/18 15:41 03/09/18 15:41 03/09/18 15:41 03/09/18 15:41 03/09/18 15:41 Microbiology 03/07/18 19:39 Gram Stain - Final Lung - Eswab 03/07/18 19:39 Gram Stain - Final Lung - Tissue 03/04/18 14:00 Gram Stain - Final Abdomen - Aspirate 03/06/18 17:20 Gram Stain - Final Pleural Fluid - Aspirate Body Fluid Culture - Final Laboratory Results 03/09/18 07:05 03/09/18 07:05 03/08/18 03/09/18 03/10/18 05:59 05:59 05:59 Intake Total 1950 1080 400 Output Total 716 214 Balance 1234 866 400 PT 17.1 SEC (12.0-15.0) H 03/09/18 07:05 INR 1.38 (0.83-1.16) H 03/09/18 07:05 - Physical Exam Constitutional: no apparent distress, not in pain, obese, uncomfortable Cardiovascular: systolic murmur (I/ at sternum and apex), edema (1+ bilat LE) , other (occasional irregularity), No tachycardia Respiratory: rhonchi (on insp bilat), No expiratory wheeze, No bronchial breath sounds, No respiratory distress Gastrointestinal: normoactive bowel sounds, soft, non-tender abdomen, no palpable masses, No distension Skin: other (non-tender/non-indurated R chest site) Neurologic: AAOx3, No weakness, No facial droop Psychiatric: interacting appropriately, not anxious, not encephalopathic, thought process linear ICD10 Worksheet Patient Problems: Problems Problem Status Onset Hiatal hernia Acute
[2018-03-09] MEDS: ROSUVASTATIN CALCIUM 10 MG TAB PO SCH (21:24)
[2018-03-09] MEDS: METOPROLOL SUCCINATE XR 25 MG TAB PO SCH (21:25)
[2018-03-10] MEDS: KETOROLAC 15 MG/1 ML SDV IVP SCH ×4 (00:24→17:47)
[2018-03-10] MEDS: IPRATROPIUM/ALBUTEROL 3 ML DEYVIAL IH SCH ×4 (05:33→21:12)
[2018-03-10] MEDS: LEVOTHYROXINE 100 MCG TAB PO SCH (06:12)
[2018-03-10 06:29] LABS: PLATELET COUNT 615 10^3/uL (150-400)
--- NOTE | 2018-03-10 09:02 | SOAPPROG ---
SOAP Progress Note Assessment/Plan: Assessment: afebrile but markedly distended this pm/ no flatus/ decreased bs/ no tachycardia bs equal/ cor rr/ abd taunt imp: significant ileus Plan:stat 2-way 02/21/18 18:08 02/22/18 18:41 REASONABLY STABLE THIS P.M. BUT SOME EPISODES OF TACHYCARDIA UP TO 120/ABDOMEN SOFT WITH RARE BOWEL SOUNDS AND MINIMAL FLATUS/WOUND OKAY MINIMAL NG OUTPUT/TEMP 37.5 DEGREES/CHEST X-RAY STABLE/WBC NORMAL/HEMATOCRIT 40/ URINE OUTPUT GREATER THAN 1 L 02/23/18 07:02 FEELING BETTER TODAY/ AFEBRILE/ CXR WITH SMALL BILAT EFFUSIONS/ HCT 39/ CREAT .9 / UO BRISK/ NG MINIMAL ABD SOFTER, WOUND OK, RARE BS/ NO FLATUS DEVELOPED RAPID AFIB LAST PM BUT NOW CONVERTED THANKS TO IM CONSULT 03/02/18 15:57 DOING WELL AND FEELING WELL TODAY/WANTS TO GO HOME/AFEBRILE/WBC STILL ELEVATED AT 15 K WOUND OKAY/ABDOMEN SOFT/ CHEST CLEAR AND SYMMETRIC WILL CHECK ABDOMINAL CT SCAN PRIOR TO DISCHARGE BECAUSE OF THE PROLONGED WBC ELEVATION 03/06/18 19:06 SEEN THIS A A.M. WITH TRAMAINE URBINA/PLEASE REFER TO HER NOTE CHEST REVEALS BILATERAL PLEURAL EFFUSIONS WITH DULLNESS IN BOTH BASES COR REGULAR RHYTHM ABDOMEN SOFT NONTENDER WITH GOOD HEALING WOUND PATIENT REMAINS AFEBRILE WITH NO COMPLAINTS OF PAIN OR PROBLEMS/SHE IS EATING WELL/WITH NORMAL BOWEL MOVEMENTS CHEST X-RAY AND CT REVEALED BILATERAL PLEURAL EFFUSIONS, MORE COMPLEX ON THE RIGHT/THORACENTESIS AND PELVIC CULTURES WERE NO GROWTH SO FOR AND SHE IS HAVING MINIMAL DRAINAGE FROM HER PELVIC DRAIN PLAN: LEFT THERAPEUTIC THORACENTESIS FOR EVALUATION/IF THAT CAN BE CLEARED AND POSSIBLE VATS DRAINAGE OF THE RIGHT IN THE NEXT 24-48 HOURS UNLESS RESOLVING ON ITS OWN RISKS AND OPTIONS FULLY DISCUSSED THE PATIENT AND HER WHO WISHED TO PROCEED 03/07/18 12:20 better after left thorascentesis/ still loculated effusion on the right/ afebrile/ risks and options fullly discussed/ wbc 13k plan proceed with right vats today 03/10/18 09:01 AFEBRILE/ COMFORTABLE/ MINIMAL CT DRAINAGE AND NO AIRLEAK/ PELVIC DRAIN OUT CXR WELL EXPANDED/ HCT 25/ IMPROVING Objective: Vital Signs Temp Pulse Resp BP Pulse Ox 36.8 C 78 18 101/57 L 97 03/10/18 04:00 03/10/18 07:30 03/10/18 07:30 03/10/18 07:30 03/10/18 07:30 Microbiology 03/07/18 19:39 Gram Stain - Final Lung - Eswab 03/07/18 19:39 Gram Stain - Final Lung - Tissue 03/04/18 14:00 Gram Stain - Final Abdomen - Aspirate 03/06/18 17:20 Gram Stain - Final Pleural Fluid - Aspirate Body Fluid Culture - Final Laboratory Results 03/10/18 06:10 03/09/18 07:05 03/09/18 03/10/18 03/11/18 05:59 05:59 05:59 Intake Total 1080 1930 Output Total 214 1500 Balance 866 430 PT 17.1 SEC (12.0-15.0) H 03/09/18 07:05 INR 1.38 (0.83-1.16) H 03/09/18 07:05 ICD10 Worksheet Patient Problems: Problems Problem Status Onset Hiatal hernia Acute
[2018-03-10] MEDS: POLYETHYLENE GLYCOL 3350 17 GM PKT PO SCH (09:28)
[2018-03-10] MEDS: PANTOPRAZOLE SODIUM 40 MG TAB PO SCH (09:28)
[2018-03-10] MEDS: cefTRIAXone 2 GM in STERILE WATER INJ 20 ML IV SCH (09:28)
[2018-03-10] MEDS: FUROSEMIDE 20 MG/2 ML VIAL IVP SCH ×2 (09:28→15:16)
[2018-03-10] MEDS: SENNOSIDES/DOCUSATE SODIUM TAB PO SCH ×2 (09:28→20:58)
[2018-03-10] MEDS: HYDROCORTISONE 1% CREAM TP SCH ×2 (09:38→20:57)
--- NOTE | 2018-03-10 10:25 | PCMIDPN ---
Assessment/Plan: # Gastric perforation following César fundoplication with abscess,cx showed strep species, wbc much improved --fluconazole stopped, will continue to monitor fungal cx --switched to ceftriaxone for more favorable coverage of strep # Empyema with actinomyces: switched to ceftriaxone. CT still in with minimal output # Antibiotic allergies, Penicillin, ertapenem: Rash --tolerating ceftriaxone Medications ceftriaxone 2gm IV daily, #2 Microbiology 03/07/18 19:39 Lung - Tissue Actinomyces Odontolyticus 03/04/18 14:00 Abdomen - Aspirate Streptococcus Sanguinis Streptococcus Intermedius Subjective: denies reaction to ceftriaxone some pain associated w CT Objective: Vital Signs Temp Pulse Resp BP Pulse Ox 36.8 C 78 18 101/57 L 97 03/10/18 04:00 03/10/18 07:30 03/10/18 07:30 03/10/18 07:30 03/10/18 07:30 Microbiology 03/07/18 19:39 Gram Stain - Final Lung - Eswab 03/07/18 19:39 Gram Stain - Final Lung - Tissue 03/04/18 14:00 Gram Stain - Final Abdomen - Aspirate 03/06/18 17:20 Gram Stain - Final Pleural Fluid - Aspirate Body Fluid Culture - Final Laboratory Results 03/10/18 06:10 03/09/18 07:05 03/09/18 03/10/18 03/11/18 05:59 05:59 05:59 Intake Total 1080 1930 Output Total 214 1500 Balance 866 430 Gen: ambulating w walker CT still in place serosan fluid Breathing easy no obvious rashes - Time Spent With Patient Time Spent with Patient: greater than 25 minutes (case discussed with case management) Time Spent with Patient: Greater than 25 minutes spent on this patients care, greater than 50% of time spent counseling, educating, and coordinating care regarding the above mentioned plan. ICD10 Worksheet Patient Problems: Problems Problem Status Onset Hiatal hernia Acute
--- NOTE | 2018-03-10 12:18 | PDIAF ---
- Diagnosis Diagnosis: Streptococcal abdominal abscess & Actinomyces empyema Code Status: Full Code - Medication Management Discharge Medications: Medications to Continue on Transfer Calcium Carbonate [Oyster Shell Calcium 500 mg (*)] 500 mg PO DAILY 02/16/18 [ Last Taken 02/16/18] Cholecalciferol Vit D3 [Vitamin D3 (*)] 1,000 units PO DAILY 02/16/18 [Last Taken 02/16/18] Herbals/Supplements -Info Only 1 ea PO DAILY 02/16/18 [Last Taken 02/16/18] Ibuprofen [Motrin (*)] 200 mg PO DAILY 02/16/18 [Last Taken 02/13/18] Levothyroxine [Synthroid 100 mcg (*)] 100 mcg PO DAILY06 02/16/18 [Last Taken 06:00] Losartan Potassium [Cozaar 25 mg (*)] 25 mg PO DAILY 02/16/18 [Last Taken 12:00] Metoprolol Succinate Xr [Toprol Xl 25 mg (*)] 37.5 mg PO HS 02/16/18 [Last Taken 02/19/18 22:00] Multivitamins [Multivitamin (*)] 1 each PO DAILY 02/16/18 [Last Taken 02/16/18] Rosuvastatin Calcium [Crestor 10mg (RX)] 10 mg PO HS 02/16/18 [Last Taken 22:00] Alley Worker Antibiotics: ceftriaxone 2gm IV daily [facility] Antibiotic Stop Date: 03/27/18 Discharge Medications: Refer to the Discharge Home Medication list for PRN reason. PICC Care - Routine: Yes - Orders Services needed: Home Care, Registered Nurse Home Care Face to Face: I certify that this patient was under my care and that I had the required [id number] encounter meeting the encounter requirements on the discharge day. My findings support the fact that the patient is homebound as defined in Home Care Face to Face Continued: CMS Chapter 7 Medicare Benefits Manual 30.1.1 , The condition of the patient is such that there exists a normal inability to leave home and consequently, leaving home would require a considerable and taxing effort. Diet Texture: Thin Liquids - Labs/Radiology CBC w/diff Date: 03/20/18 (weekly Tuesday) CMP Date: 03/20/18 (weekly Tuesday) CRP Date: 03/20/18 (weekly Tuesday) Call or Fax Lab and Imaging Results to: Dr Juan Manuel Rajput [phone] - Follow Up Care Current Providers and Referrals: Laura Cannon MD [Primary Care Provider] - Juan Manuel Rajput MD [Medical Doctor] - follow up in 1 week
--- NOTE | 2018-03-10 14:51 | ASMTCMCOM ---
CM Note CM Note Notes: Pts case discussed in morning rounds. Reva from [facility] will come out and speak to pt and family for out of pocket cost for ivabx. Pt will most likely d/c with [facility] when medically stable. Dr. Weller may pull chest tubes this weekend. RISSA provided [facility] updates from [facility]. CM to follow. Plan: [facility] with home infusion Date Signed: 03/10/2018 02:50 PM Electronically Signed By:JOSE Curran
--- NOTE | 2018-03-10 17:42 | HOSPPROG ---
Hospitalist Progress Note Assessment/Plan: Assessment/Plan: 77-year-old p/w acute peritonitis 2/2 gastric perforation (02/21) s/p lap César fundoplication (02/20) c/b actinomyces empyema requiring VATs (03/07) # peritonitis secondary acute gastric perforation, s/p oversew by gen surg -drain out -strep covered by CTX 2g daily # actinomyces empyema and loculated pleural effusions: s/p left side drained of 800mls, VATs R side 03/07 w/ minimal CT output -cont on CTX, duration under direction of ID -Dr. Weller will likely remove CT within next 24-48hrs # acute blood loss anemia: bleeding stabilized around chest tube site, none further today -hold on blood transfusion today, monitor Hgb -counseled patient and daughter extensively, there is an iron-deficient component and since we are trying to limit volume input, using IV iron may help avoid blood transfusion, will give 3 doses starting now, will monitor closely for bleeding as we initiate DVT ppx # acute diastolic CHF exacerbation: evidenced by LE edema, LVH on Echo, 2/2 IVF -good UOP w/ lasix 03/08, remains net positive -restarted lasix 20mg IV bid today, gauge effect -TEDs for symptomatic edema # acute atelectasis: present on CXR, IS # atrial fibrillation, new diagnosis: now in sinus rhythm after being on diltiazem drip, transitioned to bblocker -tele personally interpreted, currently in sinus arrhythmia -per my d/w Dr. Weller, we agreed that bleed risk remains elevated and will hold on starting eliquis -outpt 30-day event monitor to gauge burden/recurrence # anxiety: pt had a good nights sleep and feels much better with low dose lorazepam. -benadryl/ativan PRN # acute hypoxic respiratory failure: evidenced by objective tachypnea + SpO2 73 % on room air + high-o2 needs up to 10LPM + symptomatic shortness of breath, likely 2/2 pleural effusions, gastric perf -cont on 2LPM, will likely need o2 at discharge # allergic reaction to ertapenem with rash # acute renal failure, resolved # tachycardia, sinus tach resolved with IV fluids, CT angiogram negative for PE # hypertension, holding home ARB as we are actively diuresing # GE reflux disease on PPI # DVT prophylaxis: initiate lovenox 40, SCDs # thyroid cancer status post thyroidectomy, on Synthroid # breast cancer status post right mastectomy with lymph node dissection diet. regular code. full dispo. ADD uncertain Subjective: ongoing leg edema, no BMs Objective: Vital Signs Temp Pulse Resp BP Pulse Ox 36.7 C 84 12 115/67 100 03/10/18 16:00 03/10/18 16:05 03/10/18 16:05 03/10/18 16:00 03/10/18 16:05 Microbiology 03/07/18 19:39 Gram Stain - Final Lung - Eswab 03/07/18 19:39 Gram Stain - Final Lung - Tissue 03/04/18 14:00 Gram Stain - Final Abdomen - Aspirate Laboratory Results 03/10/18 06:10 03/09/18 07:05 03/09/18 03/10/18 03/11/18 05:59 05:59 05:59 Intake Total 1080 1930 Output Total 214 1500 400 Balance 866 430 -400 PT 17.1 SEC (12.0-15.0) H 03/09/18 07:05 INR 1.38 (0.83-1.16) H 03/09/18 07:05 - Time Spent With Patient Time Spent with Patient: greater than 35 minutes Time Spent with Patient: Greater than 35 minutes spent on this patients care, greater than 50% of time spent counseling, educating, and coordinating care regarding the above mentioned plan. - Physical Exam Constitutional: no apparent distress, not in pain, obese, uncomfortable Cardiovascular: edema (1+ bilat LE), No systolic murmur, No irregularly irregular, No tachycardia Respiratory: reduced air movement (R base), No inspiratory crackles, No respiratory distress Gastrointestinal: normoactive bowel sounds, soft, non-tender abdomen, no palpable masses, No distension Skin: other (dressings w/o saturation R chest) Neurologic: AAOx3 Psychiatric: interacting appropriately, not anxious, not encephalopathic, thought process linear ICD10 Worksheet Patient Problems: Problems Problem Status Onset Hiatal hernia Acute
[2018-03-10] MEDS ORDERED: SODIUM FERRIC GLUCONAT/SUCROSE 125 MG in NS 100 ML IV ONE (17:47)
[2018-03-10] MEDS ORDERED: BISACODYL 5 MG EC TAB PO PRN (18:03)
[2018-03-10] MEDS: ENOXAPARIN 40 MG/0.4 ML SYR SC SCH (18:15)
[2018-03-10] MEDS: METOPROLOL SUCCINATE XR 25 MG TAB PO SCH (20:57)
[2018-03-10] MEDS: ROSUVASTATIN CALCIUM 10 MG TAB PO SCH (20:58)
[2018-03-11] MEDS: ACETAMINOPHEN 650 MG/20.3 ML UDCUP PO PRN ×4 (00:17→13:10)
[2018-03-11] MEDS: IPRATROPIUM/ALBUTEROL 3 ML DEYVIAL IH SCH ×4 (05:16→21:01)
[2018-03-11] MEDS: LEVOTHYROXINE 100 MCG TAB PO SCH (05:58)
[2018-03-11 06:35] LABS: PLATELET COUNT 617 10^3/uL (150-400)
[2018-03-11] MEDS: ENOXAPARIN 40 MG/0.4 ML SYR SC SCH (09:19)
--- NOTE | 2018-03-11 10:13 | PCMIDPN ---
Assessment/Plan: # Gastric perforation following César fundoplication with post op infection including abdominal abscess s/p drainage 03/04, cx showed multiple strep species and R side empyema with actinomyces s/p R VATS c R minithoracotomy, drainage, decortication, and washout 03/07. CoNS on lung tissue cx, doubt significant pathogen --switched to ceftriaxone for more favorable coverage of streptococcus and actinomyces, stop after approx 3 weeks post op 03/27/18. Change Benadryl to PO prior to antibiotic to prepare for dc home --fluconazole stopped, will continue to monitor fungal cx # Antibiotic allergies, Penicillin, ertapenem: Rash --tolerating ceftriaxone Medications ceftriaxone 2gm IV daily, #3 Microbiology 03/07/18 Lung - Tissue Actinomyces Odontolyticus 03/04/18 Abdomen - Aspirate Streptococcus Sanguinis Streptococcus Intermedius 03/04/18 pleural fluid : cx negative Subjective: feeling much better questions about pro-biotics Objective: Vital Signs Temp Pulse Resp BP Pulse Ox 36.3 C 76 15 113/62 99 03/11/18 08:00 03/11/18 08:00 03/11/18 08:00 03/11/18 08:00 03/11/18 08:00 Microbiology 03/07/18 19:39 Gram Stain - Final Lung - Tissue 03/07/18 19:39 Gram Stain - Final Lung - Eswab 03/04/18 14:00 Gram Stain - Final Abdomen - Aspirate Laboratory Results 03/11/18 06:20 03/11/18 06:20 03/10/18 03/11/18 03/12/18 05:59 05:59 05:59 Intake Total 1930 1110 Output Total 1500 1730 Balance 430 -620 Gen: nontoxic sitting up in bed HEENT: o/p clear CV: RRR Chest: decreased bs, mild crackles R base, CT in place with serosang fluid Abd: slight distension soft, +BS, midline incision healing well Ext: no joint swelling RUE PICC c/d/i - Time Spent With Patient Time Spent with Patient: greater than 25 minutes (care coordinated with RN, education about probiotics, would avoid supplementation at this point, yogurt okay) Time Spent with Patient: Greater than 25 minutes spent on this patients care, greater than 50% of time spent counseling, educating, and coordinating care regarding the above mentioned plan. ICD10 Worksheet Patient Problems: Problems Problem Status Onset Hiatal hernia Acute
[2018-03-11] MEDS: SENNOSIDES/DOCUSATE SODIUM TAB PO SCH ×2 (10:20→20:37)
[2018-03-11] MEDS: FUROSEMIDE 20 MG/2 ML VIAL IVP SCH ×2 (10:20→15:50)
[2018-03-11] MEDS: POLYETHYLENE GLYCOL 3350 17 GM PKT PO SCH (10:20)
[2018-03-11] MEDS: cefTRIAXone 2 GM in STERILE WATER INJ 20 ML IV SCH (10:20)
[2018-03-11] MEDS: SODIUM FERRIC GLUCONAT/SUCROSE 125 MG in NS 100 ML IV SCH (10:21)
[2018-03-11] MEDS: PANTOPRAZOLE SODIUM 40 MG TAB PO SCH (10:21)
[2018-03-11] MEDS: HYDROCORTISONE 1% CREAM TP SCH ×2 (10:21→20:57)
--- NOTE | 2018-03-11 11:54 | SOAPPROG ---
SOAP Progress Note Assessment/Plan: Assessment: afebrile but markedly distended this pm/ no flatus/ decreased bs/ no tachycardia bs equal/ cor rr/ abd taunt imp: significant ileus Plan:stat 2-way 02/21/18 18:08 02/22/18 18:41 REASONABLY STABLE THIS P.M. BUT SOME EPISODES OF TACHYCARDIA UP TO 120/ABDOMEN SOFT WITH RARE BOWEL SOUNDS AND MINIMAL FLATUS/WOUND OKAY MINIMAL NG OUTPUT/TEMP 37.5 DEGREES/CHEST X-RAY STABLE/WBC NORMAL/HEMATOCRIT 40/ URINE OUTPUT GREATER THAN 1 L 02/23/18 07:02 FEELING BETTER TODAY/ AFEBRILE/ CXR WITH SMALL BILAT EFFUSIONS/ HCT 39/ CREAT .9 / UO BRISK/ NG MINIMAL ABD SOFTER, WOUND OK, RARE BS/ NO FLATUS DEVELOPED RAPID AFIB LAST PM BUT NOW CONVERTED THANKS TO IM CONSULT 03/02/18 15:57 DOING WELL AND FEELING WELL TODAY/WANTS TO GO HOME/AFEBRILE/WBC STILL ELEVATED AT 15 K WOUND OKAY/ABDOMEN SOFT/ CHEST CLEAR AND SYMMETRIC WILL CHECK ABDOMINAL CT SCAN PRIOR TO DISCHARGE BECAUSE OF THE PROLONGED WBC ELEVATION 03/06/18 19:06 SEEN THIS A A.M. WITH TRAMAINE URBINA/PLEASE REFER TO HER NOTE CHEST REVEALS BILATERAL PLEURAL EFFUSIONS WITH DULLNESS IN BOTH BASES COR REGULAR RHYTHM ABDOMEN SOFT NONTENDER WITH GOOD HEALING WOUND PATIENT REMAINS AFEBRILE WITH NO COMPLAINTS OF PAIN OR PROBLEMS/SHE IS EATING WELL/WITH NORMAL BOWEL MOVEMENTS CHEST X-RAY AND CT REVEALED BILATERAL PLEURAL EFFUSIONS, MORE COMPLEX ON THE RIGHT/THORACENTESIS AND PELVIC CULTURES WERE NO GROWTH SO FOR AND SHE IS HAVING MINIMAL DRAINAGE FROM HER PELVIC DRAIN PLAN: LEFT THERAPEUTIC THORACENTESIS FOR EVALUATION/IF THAT CAN BE CLEARED AND POSSIBLE VATS DRAINAGE OF THE RIGHT IN THE NEXT 24-48 HOURS UNLESS RESOLVING ON ITS OWN RISKS AND OPTIONS FULLY DISCUSSED THE PATIENT AND HER WHO WISHED TO PROCEED 03/07/18 12:20 better after left thorascentesis/ still loculated effusion on the right/ afebrile/ risks and options fullly discussed/ wbc 13k plan proceed with right vats today 03/10/18 09:01 AFEBRILE/ COMFORTABLE/ MINIMAL CT DRAINAGE AND NO AIRLEAK/ PELVIC DRAIN OUT CXR WELL EXPANDED/ HCT 25/ IMPROVING 03/11/18 11:53 AFEBRILE/VITAL SIGNS STABLE/BREATH SOUNDS EQUAL/MINIMAL CHEST TUBE DRAINAGE/ FEELING BETTER/HEMATOCRIT 26/WBC NORMAL PROBABLY WILL DC CHEST TUBES THIS WEEKEND IF DRAINAGE REMAINS LOW/EATING BETTER/ POSITIVE BOWEL MOVEMENT Objective: Vital Signs Temp Pulse Resp BP Pulse Ox 36.3 C 79 15 102/65 98 03/11/18 11:52 03/11/18 11:52 03/11/18 11:52 03/11/18 11:52 03/11/18 11:52 Microbiology 03/07/18 19:39 Gram Stain - Final Lung - Tissue 03/07/18 19:39 Gram Stain - Final Lung - Eswab 03/04/18 14:00 Gram Stain - Final Abdomen - Aspirate Laboratory Results 03/11/18 06:20 03/11/18 06:20 03/10/18 03/11/18 03/12/18 05:59 05:59 05:59 Intake Total 1930 1110 Output Total 1500 1730 Balance 430 -620 PT 17.1 SEC (12.0-15.0) H 03/09/18 07:05 INR 1.38 (0.83-1.16) H 03/09/18 07:05 ICD10 Worksheet Patient Problems: Problems Problem Status Onset Hiatal hernia Acute
--- NOTE | 2018-03-11 12:41 | HOSPPROG ---
Hospitalist Progress Note Assessment/Plan: 77-year-old p/w acute peritonitis 2/2 gastric perforation (02/21) s/p lap César fundoplication (02/20) c/b actinomyces empyema requiring VATs (03/07) # Peritonitis secondary acute gastric perforation, s/p oversew by gen surg - drain out Abdominal aspirate cultures with streptococcus sanguinis and intermedius - continue CTX 2g daily # actinomyces empyema and loculated pleural effusions: s/p left side drained of 800mls, VATs R side 03/07 w/ minimal CT output overnight CXR (personally reviewed and interpreted) two right sided CT and stable tiny apical PTX - Dr. Weller will likely remove CT within next 24-48hrs - continue CTX # acute blood loss anemia- bleeding stabilized around chest tube site, none further in past 48 hours H&H stable at 06/17 -complete IV iron load -cont to monitor H&H # Acute diastolic CHF exacerbation-presumed 2/2 IVF as inpatient- pt with LE edema, LVH on Echo -cont lasix 20mg IV bid -TEDs for symptomatic edema # atrial fibrillation, new diagnosis: now in sinus rhythm after being on diltiazem drip, transitioned to bblocker TELE ( personally reviewed and interpreted) currently in sinus -holding eliquis as bleeding risk remains high -outpt 30-day event monitor to gauge burden/recurrence # anxiety-pt had a good nights sleep and feels much better with low dose lorazepam. -benadryl/ativan PRN # acute hypoxic respiratory failure- suspect multifactorial - atelectasis, volume overlaod and splinting with acute Abd pathology oxygen saturations 95% on 5L -cont supplemental O2 - cont up to chair - cont diuresis # allergic reaction to ertapenem with rash # acute renal failure, resolved # hypertension, holding home ARB as we are actively diuresing # GE reflux disease on PPI # DVT prophylaxis: initiate lovenox 40, SCDs # thyroid cancer status post thyroidectomy, on Synthroid # breast cancer status post right mastectomy with lymph node dissection diet. regular code. full dispo. ADD uncertain I have discussed the case with RN - anticipate new PICC prior to dc likely early next week Subjective: had BM today Objective: Vital Signs Temp Pulse Resp BP Pulse Ox 36.3 C 64 30 H 102/65 91 L 03/11/18 11:52 03/11/18 11:58 03/11/18 11:58 03/11/18 11:52 03/11/18 11:58 Microbiology 03/07/18 19:39 Gram Stain - Final Lung - Tissue 03/07/18 19:39 Gram Stain - Final Lung - Eswab 03/04/18 14:00 Gram Stain - Final Abdomen - Aspirate Laboratory Results 03/11/18 06:20 03/11/18 06:20 03/10/18 03/11/18 03/12/18 05:59 05:59 05:59 Intake Total 1930 1110 Output Total 1500 1730 Balance 430 -620 PT 17.1 SEC (12.0-15.0) H 03/09/18 07:05 INR 1.38 (0.83-1.16) H 03/09/18 07:05 - Physical Exam Constitutional: chronically ill appearing Eyes: anicteric sclera Ears, Nose, Mouth, Throat: moist mucous membranes Cardiovascular: regular rate and rhythym Respiratory: no respiratory distress Gastrointestinal: normoactive bowel sounds Genitourinary: no bladder fullness Skin: normal color Musculoskeletal: No asymmetric calves Neurologic: AAOx3 Psychiatric: interacting appropriately Lymph, Heme, Immunologic: no cervical LAD ICD10 Worksheet Patient Problems: Problems Problem Status Onset Hiatal hernia Acute
[2018-03-11] MEDS: OXYCODONE/APAP 5/325 TAB PO PRN (20:37)
[2018-03-11] MEDS: ROSUVASTATIN CALCIUM 10 MG TAB PO SCH (20:37)
[2018-03-11] MEDS: METOPROLOL SUCCINATE XR 25 MG TAB PO SCH (20:37)
[2018-03-11] MEDS: HYDROmorphone HCL/NS 0.5 MG/ML SYR IVP PRN (22:40)
[2018-03-12] MEDS: HYDROmorphone HCL/NS 0.5 MG/ML SYR IVP PRN ×3 (02:06→10:48)
[2018-03-12] MEDS: IPRATROPIUM/ALBUTEROL 3 ML DEYVIAL IH SCH ×4 (05:29→20:06)
[2018-03-12] MEDS: LEVOTHYROXINE 100 MCG TAB PO SCH (06:16)
[2018-03-12] MEDS: SODIUM FERRIC GLUCONAT/SUCROSE 125 MG in NS 100 ML IV SCH (09:49)
[2018-03-12] MEDS: diphenhydrAMINE 25 MG CAP PO SCH (09:49)
[2018-03-12] MEDS: FUROSEMIDE 20 MG/2 ML VIAL IVP SCH (09:49)
[2018-03-12] MEDS: cefTRIAXone 2 GM in STERILE WATER INJ 20 ML IV SCH (09:49)
[2018-03-12] MEDS: ENOXAPARIN 40 MG/0.4 ML SYR SC SCH (09:50)
[2018-03-12] MEDS: SENNOSIDES/DOCUSATE SODIUM TAB PO SCH ×2 (09:50→21:18)
[2018-03-12] MEDS: PANTOPRAZOLE SODIUM 40 MG TAB PO SCH (09:50)
[2018-03-12] MEDS: POLYETHYLENE GLYCOL 3350 17 GM PKT PO SCH (09:52)
[2018-03-12] MEDS: HYDROCORTISONE 1% CREAM TP SCH ×3 (09:52→21:22)
--- NOTE | 2018-03-12 10:46 | SOAPPROG ---
SOAP Progress Note Assessment/Plan: Assessment: afebrile but markedly distended this pm/ no flatus/ decreased bs/ no tachycardia bs equal/ cor rr/ abd taunt imp: significant ileus Plan:stat 2-way 02/21/18 18:08 02/22/18 18:41 REASONABLY STABLE THIS P.M. BUT SOME EPISODES OF TACHYCARDIA UP TO 120/ABDOMEN SOFT WITH RARE BOWEL SOUNDS AND MINIMAL FLATUS/WOUND OKAY MINIMAL NG OUTPUT/TEMP 37.5 DEGREES/CHEST X-RAY STABLE/WBC NORMAL/HEMATOCRIT 40/ URINE OUTPUT GREATER THAN 1 L 02/23/18 07:02 FEELING BETTER TODAY/ AFEBRILE/ CXR WITH SMALL BILAT EFFUSIONS/ HCT 39/ CREAT .9 / UO BRISK/ NG MINIMAL ABD SOFTER, WOUND OK, RARE BS/ NO FLATUS DEVELOPED RAPID AFIB LAST PM BUT NOW CONVERTED THANKS TO IM CONSULT 03/02/18 15:57 DOING WELL AND FEELING WELL TODAY/WANTS TO GO HOME/AFEBRILE/WBC STILL ELEVATED AT 15 K WOUND OKAY/ABDOMEN SOFT/ CHEST CLEAR AND SYMMETRIC WILL CHECK ABDOMINAL CT SCAN PRIOR TO DISCHARGE BECAUSE OF THE PROLONGED WBC ELEVATION 03/06/18 19:06 SEEN THIS A A.M. WITH TRAMAINE URBINA/PLEASE REFER TO HER NOTE CHEST REVEALS BILATERAL PLEURAL EFFUSIONS WITH DULLNESS IN BOTH BASES COR REGULAR RHYTHM ABDOMEN SOFT NONTENDER WITH GOOD HEALING WOUND PATIENT REMAINS AFEBRILE WITH NO COMPLAINTS OF PAIN OR PROBLEMS/SHE IS EATING WELL/WITH NORMAL BOWEL MOVEMENTS CHEST X-RAY AND CT REVEALED BILATERAL PLEURAL EFFUSIONS, MORE COMPLEX ON THE RIGHT/THORACENTESIS AND PELVIC CULTURES WERE NO GROWTH SO FOR AND SHE IS HAVING MINIMAL DRAINAGE FROM HER PELVIC DRAIN PLAN: LEFT THERAPEUTIC THORACENTESIS FOR EVALUATION/IF THAT CAN BE CLEARED AND POSSIBLE VATS DRAINAGE OF THE RIGHT IN THE NEXT 24-48 HOURS UNLESS RESOLVING ON ITS OWN RISKS AND OPTIONS FULLY DISCUSSED THE PATIENT AND HER WHO WISHED TO PROCEED 03/07/18 12:20 better after left thorascentesis/ still loculated effusion on the right/ afebrile/ risks and options fullly discussed/ wbc 13k plan proceed with right vats today 03/10/18 09:01 AFEBRILE/ COMFORTABLE/ MINIMAL CT DRAINAGE AND NO AIRLEAK/ PELVIC DRAIN OUT CXR WELL EXPANDED/ HCT 25/ IMPROVING 03/11/18 11:53 AFEBRILE/VITAL SIGNS STABLE/BREATH SOUNDS EQUAL/MINIMAL CHEST TUBE DRAINAGE/ FEELING BETTER/HEMATOCRIT 26/WBC NORMAL PROBABLY WILL DC CHEST TUBES THIS WEEKEND IF DRAINAGE REMAINS LOW/EATING BETTER/ POSITIVE BOWEL MOVEMENT 03/12/18 10:45 AFEBRILE/COMFORTABLE/WOUND OKAY/EATING WELL/MINIMAL CHEST TUBE DRAINAGE/NO AIR LEAK/LAB STABLE/VITAL SIGNS STABLE PLAN FOR CHEST TUBE REMOVAL IN THE A.M. Objective: Vital Signs Temp Pulse Resp BP Pulse Ox 36.9 C 77 12 116/63 99 03/12/18 07:00 03/12/18 07:00 03/12/18 07:00 03/12/18 07:00 03/12/18 07:00 Microbiology 03/07/18 19:39 Gram Stain - Final Lung - Tissue 03/07/18 19:39 Gram Stain - Final Lung - Eswab Laboratory Results 03/11/18 06:20 03/12/18 06:25 03/11/18 03/12/18 03/13/18 05:59 05:59 05:59 Intake Total 1110 1130 Output Total 1730 1635 Balance -620 -505 PT 17.1 SEC (12.0-15.0) H 03/09/18 07:05 INR 1.38 (0.83-1.16) H 03/09/18 07:05 ICD10 Worksheet Patient Problems: Problems Problem Status Onset Hiatal hernia Acute
--- NOTE | 2018-03-12 11:09 | PCMIDPN ---
Assessment/Plan: # Gastric perforation following César fundoplication with post op infection including abdominal abscess s/p drainage 03/04, cx showed multiple strep species and R side empyema with actinomyces s/p R VATS c R minithoracotomy, drainage, decortication, and washout 03/07. CoNS on lung tissue cx, doubt significant pathogen --switched to ceftriaxone for more favorable coverage of streptococcus and actinomyces, stop after approx 3 weeks post op 03/27/18. PO Benadryl effective so far today --fluconazole stopped, will continue to monitor fungal cx --reviewed CXR today, minimal effusion on R remains! --change PICC to single lumen before dc --dc from ID standpoint okay # Antibiotic allergies, Penicillin, ertapenem: Rash --tolerating ceftriaxone Medications ceftriaxone 2gm IV daily, #4 Microbiology 03/07/18 Lung - Tissue Actinomyces Odontolyticus 03/04/18 Abdomen - Aspirate Streptococcus Sanguinis Streptococcus Intermedius 03/04/18 pleural fluid : cx negative Subjective: feeling stronger good BM this AM no itching or rash after PO Benadryl then ceftriaxone today Objective: Vital Signs Temp Pulse Resp BP Pulse Ox 36.9 C 77 12 116/63 99 03/12/18 07:00 03/12/18 07:00 03/12/18 07:00 03/12/18 07:00 03/12/18 07:00 Microbiology 03/07/18 19:39 Gram Stain - Final Lung - Tissue 03/07/18 19:39 Gram Stain - Final Lung - Eswab Laboratory Results 03/11/18 06:20 03/12/18 06:25 03/11/18 03/12/18 03/13/18 05:59 05:59 05:59 Intake Total 1110 1130 Output Total 1730 1635 Balance -620 -505 Gen: nontoxic sitting up in bed HEENT: o/p clear CV: RRR Chest: decreased bs, mild crackles R base, CT in place with serosang fluid Abd: slight distension soft, +BS, midline incision healing well Ext: no joint swelling LUE PICC c/d/i ICD10 Worksheet Patient Problems: Problems Problem Status Onset Hiatal hernia Acute
--- NOTE | 2018-03-12 12:23 | HOSPPROG ---
Hospitalist Progress Note Assessment/Plan: 77-year-old p/w acute peritonitis 2/2 gastric perforation (02/21) s/p lap César fundoplication (02/20) c/b actinomyces empyema requiring VATs (03/07) # Peritonitis secondary acute gastric perforation, s/p oversew by gen surg - drain out Abdominal aspirate cultures with streptococcus sanguinis and intermedius - continue CTX 2g daily # actinomyces empyema and loculated pleural effusions: s/p left side drained of 800mls, VATs R side 03/07 w/ minimal CT output overnight CXR (personally reviewed and interpreted) two right sided CT and improved aeration on right - Dr. Weller will likely remove CT tomorrow - continue CTX # acute blood loss anemia- bleeding stabilized around chest tube site, none further in past 48 hours H&H stable at 06/17 -complete IV iron load -cont to monitor H&H # Acute diastolic CHF exacerbation-presumed 2/2 IVF as inpatient- pt appearing more euvolemic on exam today -dc lasix 20mg IV as has developed a contraction alkalosis- bicarb 33 -TEDs for symptomatic edema # atrial fibrillation, new diagnosis: now in sinus rhythm after being on diltiazem drip, transitioned to GeoVSer TELE ( personally reviewed and interpreted) currently in sinus -holding eliquis as bleeding risk remains high -outpt 30-day event monitor to gauge burden/recurrence # anxiety-pt had a good nights sleep and feels much better with low dose lorazepam. -benadryl/ativan PRN # acute hypoxic respiratory failure- suspect multifactorial - atelectasis, volume overload and splinting with acute Abd pathology oxygen saturations 95% on 2L - oxygenation improved overnight -cont supplemental O2 - cont up to chair - dc diuresis # allergic reaction to ertapenem with rash # acute renal failure, resolved # hypertension, holding home ARB as we are actively diuresing # GE reflux disease on PPI # DVT prophylaxis: initiate lovenox 40, SCDs # thyroid cancer status post thyroidectomy, on Synthroid # breast cancer status post right mastectomy with lymph node dissection diet. regular code. full dispo. ADD uncertain I have discussed the case with ID - we can exchange the double lumen PICC for single lumen prior to dc Subjective: working on IS Objective: Vital Signs Temp Pulse Resp BP Pulse Ox 36.8 C 81 14 124/67 H 98 03/12/18 11:21 03/12/18 11:21 03/12/18 11:21 03/12/18 11:21 03/12/18 11:21 Microbiology 03/07/18 19:39 Gram Stain - Final Lung - Tissue 03/07/18 19:39 Gram Stain - Final Lung - Eswab Laboratory Results 03/11/18 06:20 03/12/18 06:25 03/11/18 03/12/18 03/13/18 05:59 05:59 05:59 Intake Total 1110 1130 Output Total 1730 1635 Balance -620 -505 PT 17.1 SEC (12.0-15.0) H 03/09/18 07:05 INR 1.38 (0.83-1.16) H 03/09/18 07:05 - Physical Exam Constitutional: no apparent distress Eyes: anicteric sclera Ears, Nose, Mouth, Throat: moist mucous membranes Cardiovascular: regular rate and rhythym Respiratory: no respiratory distress, No expiratory wheeze Gastrointestinal: normoactive bowel sounds Genitourinary: no bladder fullness Skin: warm Musculoskeletal: No asymmetric calves Neurologic: AAOx3 Psychiatric: interacting appropriately Lymph, Heme, Immunologic: no cervical LAD ICD10 Worksheet Patient Problems: Problems Problem Status Onset Hiatal hernia Acute
[2018-03-12] MEDS: OXYCODONE/APAP 5/325 TAB PO PRN ×3 (14:21→22:34)
--- NOTE | 2018-03-12 14:50 | ASMTCMCOM ---
CM Note CM Note Notes: Chart reviewed for discharge plan of care. Slow progress made. Will require prison antibiotics and HHC. Referrals had been made. CM to follow. Plan: Home with HHC Date Signed: 03/12/2018 02:50 PM Electronically Signed By:Dayana Anand RN
[2018-03-12] MEDS: METOPROLOL SUCCINATE XR 25 MG TAB PO SCH (21:18)
[2018-03-12] MEDS: ROSUVASTATIN CALCIUM 10 MG TAB PO SCH (21:18)
[2018-03-13] MEDS: IPRATROPIUM/ALBUTEROL 3 ML DEYVIAL IH SCH (05:11)
[2018-03-13] MEDS: OXYCODONE/APAP 5/325 TAB PO PRN ×2 (05:51→11:14)
[2018-03-13] MEDS: LEVOTHYROXINE 100 MCG TAB PO SCH (06:31)
[2018-03-13] MEDS: ENOXAPARIN 40 MG/0.4 ML SYR SC SCH (08:16)
[2018-03-13] MEDS: diphenhydrAMINE 25 MG CAP PO SCH (08:16)
[2018-03-13] MEDS: POLYETHYLENE GLYCOL 3350 17 GM PKT PO SCH (08:16)
[2018-03-13] MEDS: HYDROCORTISONE 1% CREAM TP SCH ×2 (08:16→21:12)
[2018-03-13] MEDS: cefTRIAXone 2 GM in STERILE WATER INJ 20 ML IV SCH (08:16)
[2018-03-13] MEDS: PANTOPRAZOLE SODIUM 40 MG TAB PO SCH (08:16)
[2018-03-13] MEDS: SENNOSIDES/DOCUSATE SODIUM TAB PO SCH ×2 (08:16→21:09)
[2018-03-13] MEDS: SODIUM FERRIC GLUCONAT/SUCROSE 125 MG in NS 100 ML IV SCH (08:48)
--- NOTE | 2018-03-13 12:32 | SOAPPROG ---
SOAP Progress Note Assessment/Plan: Assessment: 77 y/o F s/p lap damaso fundoplication 02/20 S/p laparotomy with oversew for gastric perforation 02/21 S/p allergic reaction to invanz 02/23. Now on levaquin and fluconazole. s/p IR placed pelvic drain for abscess. s/p L thoracentesis, 800cc out. s/p R VATS c minithoracotomy with washout and decortication S/p chest tube insertion site purse string sutures for bleeding A-fib: in sinus rhythm now S: Feeling better. Denies more bleeding from chest tube site. Pain well controlled. Feeling bloated, hasn't had a BM since most recent procedure 2 days ago. O:Alert Afebrile WBC down to 15 today. Chest xray stable RRR Chest: R sided rhonchi, otherwise CTA bilaterally, chest tube to LWS, no air leak Abdomen: soft, but distended. hypoactive bowel sounds. Plan: Restart eliquis today for a-fib. Continue chest tube to LWS. Repeat chest xray tomorrow am. Miralax for constipation. 03/09/18 09:21 03/13/18 12:30 Continuing to improve. Afebrile. Passing flatus and BMs. Moderate incisional pain in right chest. Chest tubes pulled today. Abdomen incision is cdi. +BS. Discussed possible discharge home with home care soon. Pt and think she will be ready to go on Tuesday. 03/13/18 12:33 Objective: Vital Signs Temp Pulse Resp BP Pulse Ox 36.6 C 82 16 138/72 H 98 03/13/18 11:24 03/13/18 11:24 03/13/18 11:24 03/13/18 11:24 03/13/18 11:24 Microbiology 03/04/18 14:00 Gram Stain - Final Abdomen - Aspirate Anaerobic Culture - Final Streptococcus Sanguinis Streptococcus Intermedius Laboratory Results 03/11/18 06:20 03/13/18 06:25 03/12/18 03/13/18 03/14/18 05:59 05:59 05:59 Intake Total 1130 1000 Output Total 1635 1010 Balance -505 -10 PT 17.1 SEC (12.0-15.0) H 03/09/18 07:05 INR 1.38 (0.83-1.16) H 03/09/18 07:05 ICD10 Worksheet Patient Problems: Problems Problem Status Onset Hiatal hernia Acute
[2018-03-13 13:50] LABS: PLATELET COUNT 503 10^3/uL (150-400)
--- NOTE | 2018-03-13 16:29 | HOSPPROG ---
Hospitalist Progress Note Assessment/Plan: 77-year-old p/w acute peritonitis 2/2 gastric perforation (02/21) s/p lap Céasr fundoplication (02/20) c/b actinomyces empyema requiring VATs (03/07) # Peritonitis secondary acute gastric perforation, s/p oversew by gen surg - drain out Abdominal aspirate cultures with streptococcus sanguinis and intermedius - continue CTX 2g daily # actinomyces empyema and loculated pleural effusions: s/p left side drained of 800mls, VATs R side 03/07 w/ minimal CT output overnight CXR (personally reviewed and interpreted) no PTX s/p CT removal - Dr. Weller removed CT today - continue CTX # acute blood loss anemia- bleeding stabilized around chest tube site, none further in past 48 hours H&H stable at 06/18 -complete IV iron load -cont to monitor H&H # Acute diastolic CHF exacerbation-presumed 2/2 IVF as inpatient- pt appearing more euvolemic on exam today -dc lasix 20mg IV as has developed a contraction alkalosis- bicarb 33 down to 31 after dc overnight -TEDs for symptomatic edema # atrial fibrillation, new diagnosis: now in sinus rhythm after being on diltiazem drip, transitioned to [email or web address] TELE ( personally reviewed and interpreted) currently in sinus -holding eliquis as bleeding risk remains high -outpt 30-day event monitor to gauge burden/recurrence # anxiety-pt had a good nights sleep and feels much better with low dose lorazepam. -benadryl/ativan PRN # acute hypoxic respiratory failure- suspect multifactorial - atelectasis, volume overload and splinting with acute Abd pathology oxygen saturations 95% on 2L - oxygenation improved overnight -cont supplemental O2 - cont up to chair - dc diuresis # allergic reaction to ertapenem with rash # acute renal failure, resolved # hypertension, holding home ARB as we are actively diuresing # GE reflux disease on PPI # DVT prophylaxis: initiate lovenox 40, SCDs # thyroid cancer status post thyroidectomy, on Synthroid # breast cancer status post right mastectomy with lymph node dissection diet. regular code. full dispo. ADD uncertain I have discussed the case with IR - exchanging line to limit infection risk outpt - exchange should proceed today Subjective: feels so much better with CT out Objective: Vital Signs Temp Pulse Resp BP Pulse Ox 36.6 C 84 18 132/59 H 95 03/13/18 15:37 03/13/18 15:37 03/13/18 15:37 03/13/18 15:37 03/13/18 15:37 Microbiology 03/07/18 19:39 Gram Stain - Final Lung - Tissue 03/07/18 19:39 Gram Stain - Final Lung - Eswab 03/04/18 14:00 Gram Stain - Final Abdomen - Aspirate Anaerobic Culture - Final Streptococcus Sanguinis Streptococcus Intermedius Laboratory Results 03/13/18 13:25 03/13/18 06:25 03/12/18 03/13/18 03/14/18 05:59 05:59 05:59 Intake Total 1130 1000 Output Total 1635 1010 350 Balance -505 -10 -350 PT 17.1 SEC (12.0-15.0) H 03/09/18 07:05 INR 1.38 (0.83-1.16) H 03/09/18 07:05 - Physical Exam Constitutional: chronically ill appearing Eyes: anicteric sclera Ears, Nose, Mouth, Throat: moist mucous membranes Cardiovascular: regular rate and rhythym Respiratory: no respiratory distress Gastrointestinal: normoactive bowel sounds Genitourinary: no bladder fullness Skin: warm Musculoskeletal: No asymmetric calves Neurologic: AAOx3 Psychiatric: interacting appropriately Lymph, Heme, Immunologic: no cervical LAD ICD10 Worksheet Patient Problems: Problems Problem Status Onset Hiatal hernia Acute
--- NOTE | 2018-03-13 17:10 | PCMIDPN ---
Assessment/Plan: Assessment/Plan: * Gastric perforation status post César fundoplication with postoperative pelvic abscess: Pelvic abscess with growth of Streptococcus intermedius and Streptococcus sanguinous. Continue therapy with ceftriaxone which she is tolerating well to date. * Empyema status post VATS: Cultures with growth of Actinomyces and now also showing growth of Prevotella. Discussed this finding with patient today. Will add metronidazole as this will provide good activity against Prevotella. May explain prior air seen within pleural fluid collection. Side effects of metronidazole including metallic taste in mouth, nausea/vomiting, and potential for peripheral neuropathy discussed with patient today. Also discussed need to avoid alcohol intake with metronidazole. 03/13/18 17:07 Subjective: Patient feels significantly improved post removal of chest tubes. No abdominal pain. Objective: Vital Signs Temp Pulse Resp BP Pulse Ox 36.6 C 84 18 132/59 H 95 03/13/18 15:37 03/13/18 15:37 03/13/18 15:37 03/13/18 15:37 03/13/18 15:37 Microbiology 03/07/18 19:39 Gram Stain - Final Lung - Tissue 03/07/18 19:39 Gram Stain - Final Lung - Eswab 03/04/18 14:00 Gram Stain - Final Abdomen - Aspirate Anaerobic Culture - Final Streptococcus Sanguinis Streptococcus Intermedius Laboratory Results 03/13/18 13:25 03/13/18 06:25 03/12/18 03/13/18 03/14/18 05:59 05:59 05:59 Intake Total 1130 1000 Output Total 1635 1010 350 Balance -505 -10 -350 Ceftriaxone # 5 Lung tissue with growth of Actinomyces and Prevotella; 1 sample also with growth of coagulase-negative Staphylococcus Pelvic abscess with growth of Streptococcus sanguinous and intermedius - Physical Exam General Appearance: alert, no apparent distress EENT: No scleral icterus, No thrush Respiratory: other (Decreased breath sounds both bases, small amount of blood on dressing post chest tube removal) Cardiac/Chest: regular rate, rhythm Abdomen: non-tender, other (Incision intact without drainage or erythema), No distended - Line/s LUE PICC Lines: No drainage, No erythema ICD10 Worksheet Patient Problems: Problems Problem Status Onset Hiatal hernia Acute
--- NOTE | 2018-03-13 17:34 | ASMTCMCOM ---
CM Note CM Note Notes: Reva, from [facility] onsite to speak with pt. Updates faxed to [facility] & [facility]. CM will continue to follow. Dc plan-[facility] & [facility] Date Signed: 03/13/2018 05:33 PM Electronically Signed By:Martina Musa RN
[2018-03-13] MEDS: ROSUVASTATIN CALCIUM 10 MG TAB PO SCH (21:09)
[2018-03-13] MEDS: METOPROLOL SUCCINATE XR 25 MG TAB PO SCH (21:09)
[2018-03-14] MEDS: LEVOTHYROXINE 100 MCG TAB PO SCH (05:51)
[2018-03-14] MEDS: POLYETHYLENE GLYCOL 3350 17 GM PKT PO SCH (08:19)
[2018-03-14] MEDS: cefTRIAXone 2 GM in STERILE WATER INJ 20 ML IV SCH (08:19)
[2018-03-14] MEDS: metroNIDAZOLE 500 MG TAB PO SCH ×2 (08:19→20:22)
[2018-03-14] MEDS: SENNOSIDES/DOCUSATE SODIUM TAB PO SCH ×2 (08:19→20:22)
[2018-03-14] MEDS: PANTOPRAZOLE SODIUM 40 MG TAB PO SCH (08:19)
[2018-03-14] MEDS: diphenhydrAMINE 25 MG CAP PO SCH (08:19)
[2018-03-14] MEDS: ENOXAPARIN 40 MG/0.4 ML SYR SC SCH (08:23)
[2018-03-14] MEDS: HYDROCORTISONE 1% CREAM TP SCH (08:24)
[2018-03-14] MEDS: GUAIFENESIN/DM 10 ML UDCUP PO PRN (08:28)
[2018-03-14] MEDS: SODIUM FERRIC GLUCONAT/SUCROSE 125 MG in NS 100 ML IV SCH (10:18)
[2018-03-14] MEDS: IPRATROPIUM/ALBUTEROL 3 ML DEYVIAL IH PRN ×2 (10:31→17:54)
--- NOTE | 2018-03-14 15:27 | HOSPPROG ---
Hospitalist Progress Note Assessment/Plan: 77-year-old p/w acute peritonitis 2/2 gastric perforation (02/21) s/p lap César fundoplication (02/20) c/b actinomyces empyema requiring VATs (03/07) # actinomyces empyema and loculated pleural effusions: s/p left side drained of 800mls, VATs R side 03/07 CT removed overnight CXR (personally reviewed and interpreted) no PTX s/p CT removal - CXR in am - trial inhaled beta-agonists for cough as a little wheezy on exam - continue CTX # Peritonitis secondary acute gastric perforation, s/p oversew by gen surg - drain out Abdominal aspirate cultures with streptococcus sanguinis and intermedius - continue CTX 2g daily # acute blood loss anemia- bleeding stabilized around chest tube site, none further in past 48 hours H&H stable at 06/18 -complete IV iron load -cont to monitor H&H # Acute diastolic CHF exacerbation-presumed 2/2 IVF as inpatient- pt appearing more euvolemic on exam today -dc lasix 20mg IV -TEDs for symptomatic edema # atrial fibrillation, new diagnosis: now in sinus rhythm after being on diltiazem drip, transitioned to bblocker TELE ( personally reviewed and interpreted) remains in sinus -holding eliquis as bleeding risk remains high -outpt 30-day event monitor to gauge burden/recurrence # anxiety-pt had a good nights sleep and feels much better with low dose lorazepam. -benadryl/ativan PRN # acute hypoxic respiratory failure- suspect multifactorial - atelectasis, volume overload and splinting with acute Abd pathology oxygen saturations 95% on 2L - oxygenation improved overnight -cont supplemental O2 - cont up to chair - dc diuresis # allergic reaction to ertapenem with rash # acute renal failure, resolved # hypertension, holding home ARB as we are actively diuresing # GE reflux disease on PPI # DVT prophylaxis: initiate lovenox 40, SCDs # thyroid cancer status post thyroidectomy, on Synthroid # breast cancer status post right mastectomy with lymph node dissection diet. regular code. full dispo. ADD uncertain I have discussed the case with RN - CXR tomorrow and albuterol nebs today Subjective: cough productive of clear sputum Objective: Vital Signs Temp Pulse Resp BP Pulse Ox 36.8 C 91 18 125/68 H 88 L 05/22/18 11:41 03/14/18 11:41 03/14/18 11:41 03/14/18 11:41 03/14/18 14:27 Microbiology 03/07/18 19:39 Gram Stain - Final Lung - Eswab 03/07/18 19:39 Gram Stain - Final Lung - Tissue 03/04/18 14:00 Gram Stain - Final Abdomen - Aspirate Anaerobic Culture - Final Streptococcus Sanguinis Streptococcus Intermedius Laboratory Results 03/13/18 13:25 03/14/18 05:50 03/13/18 03/14/18 03/15/18 05:59 05:59 05:59 Intake Total 1000 800 Output Total 1010 950 Balance -10 -150 PT 17.1 SEC (12.0-15.0) H 03/09/18 07:05 INR 1.38 (0.83-1.16) H 03/09/18 07:05 - Physical Exam Constitutional: chronically ill appearing Eyes: anicteric sclera Ears, Nose, Mouth, Throat: moist mucous membranes Cardiovascular: regular rate and rhythym, systolic murmur Respiratory: expiratory wheeze Gastrointestinal: normoactive bowel sounds Genitourinary: no bladder fullness Skin: warm Musculoskeletal: No asymmetric calves Neurologic: AAOx3 Psychiatric: interacting appropriately Lymph, Heme, Immunologic: no cervical LAD ICD10 Worksheet Patient Problems: Problems Problem Status Onset Hiatal hernia Acute
[2018-03-14] MEDS: ROSUVASTATIN CALCIUM 10 MG TAB PO SCH (20:22)
[2018-03-14] MEDS: METOPROLOL SUCCINATE XR 25 MG TAB PO SCH (20:22)
[2018-03-15] MEDS: ACETAMINOPHEN 650 MG/20.3 ML UDCUP PO PRN (00:07)
[2018-03-15] MEDS: LEVOTHYROXINE 100 MCG TAB PO SCH (05:54)
[2018-03-15] MEDS: SODIUM FERRIC GLUCONAT/SUCROSE 125 MG in NS 100 ML IV SCH (08:30)
[2018-03-15] MEDS: diphenhydrAMINE 25 MG CAP PO SCH (08:30)
[2018-03-15] MEDS: cefTRIAXone 2 GM in STERILE WATER INJ 20 ML IV SCH (08:30)
[2018-03-15] MEDS: ENOXAPARIN 40 MG/0.4 ML SYR SC SCH (08:30)
[2018-03-15] MEDS: PANTOPRAZOLE SODIUM 40 MG TAB PO SCH (08:31)
[2018-03-15] MEDS: SENNOSIDES/DOCUSATE SODIUM TAB PO SCH (08:31)
[2018-03-15] MEDS: POLYETHYLENE GLYCOL 3350 17 GM PKT PO SCH (08:31)
[2018-03-15] MEDS: metroNIDAZOLE 500 MG TAB PO SCH (08:31)
--- NOTE | 2018-03-15 10:52 | PDIAF ---
- Diagnosis Diagnosis: Streptococcal abdominal abscess & Actinomyces empyema Code Status: Full Code - Medication Management Discharge Medications: Medications to Continue on Transfer Calcium Carbonate [Oyster Shell Calcium 500 mg (*)] 500 mg PO DAILY 02/16/18 [ Last Taken 02/16/18] Cholecalciferol Vit D3 [Vitamin D3 (*)] 1,000 units PO DAILY 02/16/18 [Last Taken 02/16/18] Herbals/Supplements -Info Only 1 ea PO DAILY 02/16/18 [Last Taken 02/16/18] Ibuprofen [Motrin (*)] 200 mg PO DAILY 02/16/18 [Last Taken 02/13/18] Levothyroxine [Synthroid 100 mcg (*)] 100 mcg PO DAILY06 02/16/18 [Last Taken 06:00] Losartan Potassium [Cozaar 25 mg (*)] 25 mg PO DAILY 02/16/18 [Last Taken 12:00] Metoprolol Succinate Xr [Toprol Xl 25 mg (*)] 37.5 mg PO HS 02/16/18 [Last Taken 02/19/18 22:00] Multivitamins [Multivitamin (*)] 1 each PO DAILY 02/16/18 [Last Taken 02/16/18] Rosuvastatin Calcium [Crestor] 10 mg PO HS 02/16/18 [Last Taken 02/19/18 22:00] cefTRIAXone [Rocephin] 2 gm IV DAILY #21 vial 03/15/18 [Last Taken Unknown] guaiFENesin/DEXTROMETHORPHAN [Robitussin Dm Oral Liquid (*)] 10 ml PO Q4HRS PRN ml 03/15/18 [Last Taken Unknown] metroNIDAZOLE [Flagyl 500 mg (*)] 500 mg PO Q12H #42 tab 03/15/18 [Last Taken Unknown] oxyCODONE/APAP 5/325 [Percocet 5/325 (*)] 1 - 2 tab PO Q4 PRN #30 tab 03/15/18 [ Last Taken Unknown] 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 PICC Care - Routine: Yes - Orders Services needed: Home Care, Registered Nurse Home Care Face to Face: I certify that this patient was under my care and that I had the required [id number] encounter meeting the encounter requirements on the discharge day. My findings support the fact that the patient is homebound as defined in Home Care Face to Face Continued: [facility] Chapter 7 Medicare Benefits Manual 30.1.1 , The condition of the patient is such that there exists a normal inability to leave home and consequently, leaving home would require a considerable and taxing effort. Diet Recommendation: no restrictions on diet Diet Texture: Regular Texture Diet Additional Instructions: Avoid heavy lifting for three more weeks. You may shower, but do not soak in a tub or pool. Leave your chest dressing on until Tuesday, including when you shower. Follow up with Dr. Weller (surgeon) or TREE PLANTER/PA in one week. Follow up with Dr. Rajput (infectious disease) in one week. Continue oral Flagyl and IV Ceftriaxone. Follow up with Dr. Alice Hart or her PA (cardiology) as soon as you can for your new diagnosis of a-fib. Continue metoprolol at home. Restart Eliquis twice per day for two weeks. Call with fever, chills, increasing pain, or shortness of breath. - Labs/Radiology CBC w/diff Date: 03/20/18 (weekly Tuesday) CMP Date: 03/20/18 (weekly Tuesday) CRP Date: 03/20/18 (weekly Tuesday) Call or Fax Lab and Imaging Results to: Fax results to Dr Juan Manuel Rajput [phone] - Follow Up Care Current Providers and Referrals: Laura Cannon MD [Primary Care Provider] - Ab Weller MD [Medical Doctor] - follow up in 1 week Juan Manuel Rajput MD [Medical Doctor] - follow up in 1 week Alice Hart MD [Medical Doctor] - 1-2 days (Follow up as soon as possible with Dr. Hart or her Physician Knitting Tester.)
--- NOTE | 2018-03-15 10:54 | PCMIDPN ---
Assessment/Plan: # Gastric perforation following César fundoplication with post op infection including abdominal abscess s/p drainage 03/04, cx showed multiple strep species and R side empyema with actinomyces s/p R VATS c R minithoracotomy, drainage, decortication, and washout 03/07. Micro data polymicrobial: Pertinent pathogens include Actinomyces, Prevotella and 2 species of Streptococcus --ceftriaxone + flagyl, interagency completed # Antibiotic allergies, Penicillin, ertapenem: Rash --tolerating ceftriaxone w pretreatment with PO Benadryl Medications ceftriaxone 2gm IV daily, #7 flagyl 500mg PO Q12h #2 s/p levo + fluconazole x 12 days Microbiology 03/07/18 Lung - Tissue Actinomyces Odontolyticus, Prevotella, CoNS 03/04/18 Abdomen - Aspirate Streptococcus Sanguinis Streptococcus Intermedius 03/04/18 pleural fluid : cx negative Subjective: tolerating flagyl without difficulty Objective: Vital Signs Temp Pulse Resp BP Pulse Ox 36.6 C 74 16 122/66 H 97 03/15/18 04:00 03/15/18 04:00 03/15/18 04:00 03/15/18 04:00 03/15/18 04:00 Microbiology 03/07/18 19:39 Gram Stain - Final Lung - Eswab 03/07/18 19:39 Gram Stain - Final Lung - Tissue Laboratory Results 03/13/18 13:25 03/15/18 05:50 03/14/18 03/15/18 03/16/18 05:59 05:59 05:59 Intake Total 800 1350 Output Total 950 1150 200 Balance -150 200 -200 - Physical Exam General Appearance: alert, no apparent distress EENT: pale conjunctiva Respiratory: No accessory muscle use Cardiac/Chest: other (site of CT R upper abdomen w dressing in place) Abdomen: normal bowel sounds, non-tender, soft, other (midline incision basically healed) Skin: No rash Neuro/Psych: alert, normal mood/affect, oriented x 3 - Time Spent With Patient Time Spent with Patient: greater than 25 minutes (reviewed IV antibiotic plans and follow up in ID clinic) Time Spent with Patient: Greater than 25 minutes spent on this patients care, greater than 50% of time spent counseling, educating, and coordinating care regarding the above mentioned plan. ICD10 Worksheet Patient Problems: Problems Problem Status Onset Hiatal hernia Acute
[2018-03-15 13:22] VITALS: BP 143/81
[2018-03-15] MEDS ORDERED: FUROSEMIDE 40 MG/4 ML VIAL IVP ONE (13:25)
--- NOTE | 2018-03-15 13:38 | HOSPPROG ---
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 From a Volume perspective, she is very volume overloaded with 3+ LE edema up to thighs and has gained 9 Kg since admission. I recommended to her and her today that she continue to be inpatient so that we can provide IV Diuretics. However, given her prolonged hospitalization, they have politely declined. She has received Lasix 40mg IV x 1 today and will start on Lasix 20mg PO Daily. She will f/u with ID She will f/u with Surgery # actinomyces empyema and loculated pleural effusions: s/p left side drained of 800mls, VATs R side 03/07 CT removed overnight # Peritonitis secondary acute gastric perforation, s/p oversew by gen surg - drain out Abdominal aspirate cultures with streptococcus sanguinis and intermedius - continue CTX 2g daily # acute blood loss anemia- bleeding stabilized around chest tube site, none further in past 48 hours H&H stable at 06/18 -complete IV iron load # Acute diastolic CHF exacerbation-presumed 2/2 IVF as inpatient- Refused additional IV Diuretics # atrial fibrillation, new diagnosis: now in sinus rhythm after being on diltiazem drip, transitioned to bblocker TELE ( personally reviewed and interpreted) remains in sinus -holding eliquis as bleeding risk remains high -outpt 30-day event monitor to gauge burden/recurrence # anxiety -benadryl/ativan PRN # acute hypoxic respiratory failure- suspect multifactorial - atelectasis, volume overload and splinting with acute Abd pathology: Now on RA # allergic reaction to ertapenem with rash # acute renal failure, resolved # hypertension # GE reflux disease on PPI # thyroid cancer status post thyroidectomy, on Synthroid # breast cancer status post right mastectomy with lymph node dissection Plan: ok for discharge per primary Subjective: very volume overloaded. Requesting discharge by primary team Objective: Vital Signs Temp Pulse Resp BP Pulse Ox 36.5 C 88 16 143/81 H 91 L 03/15/18 12:00 03/15/18 12:00 03/15/18 12:00 03/15/18 12:00 03/15/18 12:00 Microbiology 03/07/18 19:39 Gram Stain - Final Lung - Tissue Anaerobic Culture - Final Actinomyces Odontolyticus Staphylococcus Sp Coag Neg Prevotella Denticola 03/07/18 19:39 Gram Stain - Final Lung - Eswab Anaerobic Culture - Final Actinomyces Odontolyticus Prevotella Denticola Laboratory Results 03/13/18 13:25 03/15/18 05:50 03/14/18 03/15/18 03/16/18 05:59 05:59 05:59 Intake Total 800 1350 Output Total 950 1150 201 Balance -150 200 -201 PT 17.1 SEC (12.0-15.0) H 03/09/18 07:05 INR 1.38 (0.83-1.16) H 03/09/18 07:05 - Physical Exam Constitutional: no apparent distress Eyes: PERRL Ears, Nose, Mouth, Throat: moist mucous membranes, hearing normal Cardiovascular: regular rate and rhythym, edema (3+ edema extending to mid thigh ) Respiratory: reduced air movement Gastrointestinal: normoactive bowel sounds Skin: warm Neurologic: AAOx3 Psychiatric: interacting appropriately, not anxious, not encephalopathic Lymph, Heme, Immunologic: No petechiae ICD10 Worksheet Patient Problems: Problems Problem Status Onset Hiatal hernia Acute
--- NOTE | 2018-03-15 14:13 | PDIAF ---
- Diagnosis Diagnosis: Streptococcal abdominal abscess & Actinomyces empyema Code Status: Full Code - Medication Management Discharge Medications: Medications to Continue on Transfer Calcium Carbonate [Oyster Shell Calcium 500 mg (*)] 500 mg PO DAILY 02/16/18 [ Last Taken 02/16/18] Cholecalciferol Vit D3 [Vitamin D3 (*)] 1,000 units PO DAILY 02/16/18 [Last Taken 02/16/18] Herbals/Supplements -Info Only 1 ea PO DAILY 02/16/18 [Last Taken 02/16/18] Ibuprofen [Motrin (*)] 200 mg PO DAILY 02/16/18 [Last Taken 02/13/18] Levothyroxine [Synthroid 100 mcg (*)] 100 mcg PO DAILY06 02/16/18 [Last Taken 06:00] Losartan Potassium [Cozaar 25 mg (*)] 25 mg PO DAILY 02/16/18 [Last Taken 12:00] Metoprolol Succinate Xr [Toprol Xl 25 mg (*)] 37.5 mg PO HS 02/16/18 [Last Taken 02/19/18 22:00] Multivitamins [Multivitamin (*)] 1 each PO DAILY 02/16/18 [Last Taken 02/16/18] Rosuvastatin Calcium [Crestor] 10 mg PO HS 02/16/18 [Last Taken 02/19/18 22:00] Apixaban [Eliquis] 5 mg PO BID 14 Days #28 tab 03/15/18 [Last Taken Unknown] cefTRIAXone [Rocephin] 2 gm IV DAILY #21 vial 03/15/18 [Last Taken Unknown] guaiFENesin/DEXTROMETHORPHAN [Robitussin Dm Oral Liquid (*)] 10 ml PO Q4HRS PRN ml 03/15/18 [Last Taken Unknown] metroNIDAZOLE [Flagyl 500 mg (*)] 500 mg PO Q12H #42 tab 03/15/18 [Last Taken Unknown] oxyCODONE/APAP 5/325 [Percocet 5/325 (*)] 1 - 2 tab PO Q4 PRN #30 tab 03/15/18 [ Last Taken Unknown] Penitentiary Antibiotics: ceftriaxone 2gm IV daily and metronidazole 500mg PO BID Film Booker Antibiotic Stop Date: 03/27/18 Discharge Medications: Refer to the Discharge Home Medication list for PRN reason. PICC Care - Routine: Yes - Orders Services needed: Home Care, Registered Nurse, Physical Therapy, Occupational Therapy Home Care Face to Face: I certify that this patient was under my care and that I had the required [id number] encounter meeting the encounter requirements on the discharge day. My findings support the fact that the patient is homebound as defined in Home Care Face to Face Continued: CMS Chapter 7 Medicare Benefits Manual 30.1.1 , The condition of the patient is such that there exists a normal inability to leave home and consequently, leaving home would require a considerable and taxing effort. Diet Recommendation: no restrictions on diet Diet Texture: Regular Texture Diet Wound Care Instructions: Change chest tube site dressings daily with gauze or bandaid (depending upon amount of drainage) until healed. Ok to get wounds wet in shower. No submerging wounds in bath. Activity/Weight Bearing Restrictions: No lifting over 15 lbs. Additional Instructions: Avoid heavy lifting for three more weeks. You may shower, but do not soak in a tub or pool. Leave your chest dressing on until Tuesday, including when you shower. Follow up with Dr. Weller (surgeon) or PATIENT SERVICES REPRESENTATIVE/PA in one week. Follow up with Dr. Rajput (infectious disease) in one week. Continue oral Flagyl and IV Ceftriaxone. Follow up with Dr. Alice Hart or her PA (cardiology) as soon as you can for your new diagnosis of a-fib. Continue metoprolol at home. Restart Eliquis twice per day for two weeks. Call with fever, chills, increasing pain, or shortness of breath. - Labs/Radiology CBC w/diff Date: 03/20/18 (weekly Tuesday) CMP Date: 03/20/18 (weekly Tuesday) CRP Date: 03/20/18 (weekly Tuesday) Call or Fax Lab and Imaging Results to: Fax results to Dr Juan Manuel Rajput [phone] - Follow Up Care Current Providers and Referrals: Laura Cannon MD [Primary Care Provider] - Ab Weller MD [Medical Doctor] - follow up in 1 week Juan Manuel Rajput MD [Medical Doctor] - follow up in 1 week Alice Hart MD [Medical Doctor] - follow up in 1 week (Call Dr. Hart for an appointment. You may also see the PA she works with, Darcie Mast. )
--- NOTE | 2018-03-15 18:16 | GOP ---
[f rep st] OPERATIVE REPORT DATE OF OPERATION: 03/07/2018 SURGEON: Ab Weller MD REFUND CLERK: PRETTY Franco ANESTHESIOLOGIST: Dr. Joshua. PREOPERATIVE DIAGNOSIS: Right chest empyema. POSTOPERATIVE DIAGNOSIS: Right chest empyema. PROCEDURE PERFORMED: Right video-assisted thoracoscopic procedure with drainage of empyema and decor tication of the right lower lobe. FINDINGS: Patient was found to have a moderate amount of thin purulent fluid in the right chest with purulent fibrinous entrapment of the right lower lobe. ESTIMATED BLOOD LOSS: Less 100 cc. DESCRIPTION OF PROCEDURE: The patient was taken to the operating room where she received satisfactor y general endotracheal anesthesia by Dr. Joshua, placed in a left lateral decubitus position, prepped and draped in usual sterile fashion. Short incision was made in the 6th intercostal space in the midaxillary line. A trocar was introduce d. Laparoscope introduced. Poor visibility was present at the time as the lung was only minimally c ollapsed. Lung was suppressed with internal insufflation of CO2 and suction on the dual lumen endotra cheal tube. Eventually, we had adequate visibility to work. The fluid was suctioned out of the ches t cavity, and the fibrinous debris exudate was carefully and tediously freed up and picked off the ri ght lower lobe in the visceral pleura as well and the parietal pleura until eventually the right lowe r lobe was completely freed. The wound was copiously irrigated. All pockets were broken down and fr eed up until the lung could be well expanded. Then, two 28-Welsh chest tubes were brought in throug h some of the other trocar sites which had been placed and secured to the skin with silk sutures. Th e small mini thoracotomy that had been created was closed with running 0 Vicryl suture for the muscul ar layer, 3-0 Vicryl for the subcu, 4-0 Monocryl subcuticular stitch for the skin. All layers infilt rated with 0.5% Marcaine and all wounds were infiltrated with 0.5% Marcaine. Chest tubes were secure d to the skin with 2-0 silk suture and connected to a Pleur-Evac drainage system. She tolerated the procedure well. COMPLICATIONS: There were no complications. /[id number]/MODL
[2018-03-16] MEDS ORDERED: FUROSEMIDE 20 MG TAB PO SCH (09:00)
--- NOTE | 2018-03-16 10:38 | ASDISCHSUM ---
Discharge Information Plan Status:Home with Home Health Medically Cleared to Leave:03/15/2018 Discharge Date:03/15/2018 05:06 PM D/C Disposition:Home, Routine, Self-Care ADT D/C Disposition:Home Health Service Projected Discharge Date:03/15/2018 11:00 AM Transportation at D/C: Discharge Delay Reason: Follow-Up Date:03/15/2018 11:00 AM Discharge Slot: Final Diagnosis: Placement Information Referral Type:*Home Health Care Services Referral ID:[id number] Provider Name:[facility] [place] Address 1:[address] Address 2:[facility] [address] City:[place] Selection Factors: State:[place] Referral Type:*Penitentiary/SNF Referral ID:[id number] Provider Name: Address 1: Phone Number: Address 2: Fax Number: City: Selection Factors: State: Referral Type:Home Infusion Referral ID:[id number] Provider Name:[facility] [place] Address 1:[address] [place] [address] Phone Number: Address 2: Fax Number: City:[place] Selection Factors: State:[place] Patient Contact Information Contact Name:GISSELL Relationship:Adalberto Address:[address] [facility] Work Phone: City:[place] Alternate Phone: [facility] Code:[place] [address] Email: Financial Information Financial Class:Medicare Advantage Plans Primary Plan Desc:[place] [employer] ADV Primary Plan Number:[id number] Secondary Plan Desc: Secondary Plan Number: Assessment Information [facility] Initial CM Assessment Living Arrangements What is your living Answers: With Spouse arrangement? Who do you live with? Type Of Residence What kind of residence do Answers: House you live in? Discharge Plan Comments Coordination Status Comments Notes: Pt is a 77 y/o female admitted for a lap hiatel hernia repair with damaso fundoplication. Pt will most likely d/c independent when medically stable. No therapies ordered at this time. CM available for changes. Plan: Independent Date Signed: 02/21/2018 09:41 AM Electronically Signed By:JOSE Curran [facility] Progress Note CM Note CM Note Notes: Pts case discussed in tx rounds this AM. CM met w/ pt and for dispo planning. PT has been ordered and is recommending HC. Pt and reports that they hope to go independent. CM provided pt and w/ [facility] business card. They report that they will call if they need services set up. CM available for d/c needs. Plan: Independent Date Signed: 02/23/2018 02:41 PM Electronically Signed By:JOSE Curran [facility] Progress Note CM Note CM Note Notes: PT still recommending HHC. Met w/pt and daughter and they both were in agreement w/[facility]. They asked about [facility] but I confirmed w/Kinjal from this agency that they only do non-skilled HHC. REferrals sent to other [facility] agencies and will wait to hear back to see who is contracted w/[facility] and can accept. Spoke w/Oct from [facility] and they will review on Tuesday. CM will follow. Date Signed: 02/25/2018 05:07 PM Electronically Signed By:Sara Camilo RN [facility] CM Progress Note CM Note CM Note Notes: Patient chart reviewed and discussed in rounds. She is still not well enough and therapies are recommending SNF at this point. She may however improve to the point where HHC would be appropriate. Multiple referrals made. [employer] plan limits choice. Family [facility] would be able to provide care if family elects to pay out of pocket. Other referrals pending. CM to follow. Plan: SNF vs HHC Date Signed: 02/26/2018 01:50 PM Electronically Signed By:Dayana Anand RN [facility] CM Progress Note CM Note CM Note Notes: 02/28/2018 Case Management Note Pt has been accepted to [facility]. Pt also has been accepted by [facility]. Case Management d/c poc depends on needs on day of d/c: [facility] vs [facility] Home Health. Case Management to follow. Date Signed: 02/28/2018 02:01 PM Electronically Signed By:Mandi Palmer RN [facility] CM Progress Note CM Note CM Note Notes: Pts case discussed in tx rounds. Pts discharge has been postponed. Pt may d/c tomorrow. Pt will most likely d/c with [facility]. Pt and daughter wanted to keep [facility] as an option if they felt like they needed it. CM to follow. Plan: [facility] HH, PT, OT, RN Date Signed: 03/03/2018 04:05 PM Electronically Signed By:JOSE Curran [facility] CM Progress Note CM Note CM Note Notes: 03/04/2018 Case Management Note Discussed case with SILVERIO Ball. Pt has drain placed today for abcess and a thoracentesis today. Pt to have surgery tomorrow or Tuesday. Phone call from [facility] to discuss pt. [facility] has accepted pt as well. Case Management d/c poc: [facility] Home Health while staying with family members vs. [facility] SNF rehab. Case Management to follow. Date Signed: 03/04/2018 04:17 PM Electronically Signed By:Mandi Palmer RN [facility] CM Progress Note CM Note CM Note Notes: 03/06/2018 Case Management Note Met w/pt during interdisciplinary rounds this morning. Pt has increasing lower extremity edema today requiring additional diuresis. There are no changes to her discharge plan. See previous case management note. Case Management d/c poc: [facility] vs [facility] home care Case Management to follow. Date Signed: 03/06/2018 02:30 PM Electronically Signed By:Mandi Palmer RN [facility] CM Progress Note CM Note CM Note Notes: Pts case discussed in morning rounds. It is uncertain as to when pt will d/c. It has been determined that pt will need termite control servicer ivabx. CM met w/ pt and family for dispo planning. The family's wish is for pt to d/c home w/ [facility] services when medically stable. Family would like referrals made to home infusion companies. CM to follow. Plan: Most likely [facility] w/ supportive family Date Signed: 03/09/2018 12:48 PM Electronically Signed By:JOSE Curran [facility] Progress Note CM Note CM Note Notes: Pts case discussed in morning rounds. Reva from [facility] will come out and speak to pt and family for out of pocket cost for ivabx. Pt will most likely d/c with [facility] when medically stable. Dr. Weller may pull chest tubes this weekend. CM provided [place] updates from [facility]. CM to follow. Plan: [facility] with home infusion Date Signed: 03/10/2018 02:50 PM Electronically Signed By:JOSE Curran [facility] Progress Note CM Note CM Note Notes: Chart reviewed for discharge plan of care. Slow progress made. Will require termite control servicer antibiotics and HHC. Referrals had been made. CM to follow. Plan: Home with [facility] Date Signed: 03/12/2018 02:50 PM Electronically Signed By:Dayana Anand RN [facility] CM Progress Note CM Note CM Note Notes: Reva, from [facility] onsite to speak with pt. Updates faxed to [facility] & [facility]. CM will continue to follow. Dc plan-[facility] & [facility] Date Signed: 03/13/2018 05:33 PM Electronically Signed By:Martina Musa RN Case Management Discharge Plan Note Case Management Discharge Discharge Order Complete? Answers: Yes Patient to Obtain Answers: via Family Medications Transportation Arranged Answers: Family/Friends EMTALA Complete Answers: No Case Management Transport Answers: No Form Complete Faxed Final Orders Answers: Yes Agency/Facility Transfer Answers: Yes Report Printed & Faxed to Receiving Agency Family Notified Answers: Yes Discharge Comments Notes: Pts case discussed in morning rounds. Pt is being discharged today. CM met w/ pt and for dispo planning. Pt and pts met w/ [facility] with [facility] non skilled HC. Pt will start off with having 2 hours a day of non skilled for 10 days. CM notified [facility] and [facility] of pts discharge. DC orders sent to both agencies. CM available for changes. Plan: [facility], PT, OT, RN, Roxana, private duty for 2hrs/day for the next 10 days Date Signed: 03/15/2018 02:22 PM Electronically Signed By:JOSE Curran Intervention Information
== END 2018-03-15 17:06 | disposition home health service (06) | DRG 907 ==
LOC: OBSVTOIN 07:09 → F3N 07:09 → F3E 13:47 → F2W 02-23 04:22
PROVIDERS: ADMIT Surgery; ATTEND Family Medicine
DX: K91.71 Accidental puncture and laceration of a digestive system organ or structure during a digestive system procedure (principal); K44.9 Diaphragmatic hernia without obstruction or gangrene; K31.89 Other diseases of stomach and duodenum; J86.9 Pyothorax without fistula; J96.01 Acute respiratory failure with hypoxia; T81.4XXA Infection following a procedure, initial encounter; K65.1 Peritoneal abscess; J90 Pleural effusion, not elsewhere classified; K91.89 Other postprocedural complications and disorders of digestive system; K56.7 Ileus, unspecified; N17.9 Acute kidney failure, unspecified; I10 Essential (primary) hypertension; K21.9 Gastro-esophageal reflux disease without esophagitis; E78.5 Hyperlipidemia, unspecified; E89.0 Postprocedural hypothyroidism; L27.0 Generalized skin eruption due to drugs and medicaments taken internally; T36.8X5A Adverse effect of other systemic antibiotics, initial encounter; F41.9 Anxiety disorder, unspecified; I48.91 Unspecified atrial fibrillation; E87.5 Hyperkalemia; E83.51 Hypocalcemia; R19.7 Diarrhea, unspecified; E66.9 Obesity, unspecified; Z68.32 Body mass index [BMI] 32.0-32.9, adult; Z85.850 Personal history of malignant neoplasm of thyroid; Z85.3 Personal history of malignant neoplasm of breast; Z90.10 Acquired absence of unspecified breast and nipple
CPT/HCPCS: 92526-GN; 92610-GN; 97110-GP; 97112-GP; 97116-GP; 97161-GP; 97165-GO; 97168-GO; 97530-GO; 97530-GP; 97535-GO; C1751; G0378; J0171; J0696; J1100; J1170; J1200; J1335; J1450; J1650; J1885; J1940; J1956; J2250; J2310; J2370; J2405; J2704; J2765; J2780; J2916; J2997; J3010; J3480; P9041; Q9967

== ENCOUNTER → 2018-04-28 | Outpatient (CLI) | payer OTHER | LOC: FIMAGING 11:19 | PROVIDERS: ATTEND Internal Medicine Infectious Disease | DX: J86.9 Pyothorax without fistula (principal) ==

== ENCOUNTER → 2019-04-06 | Outpatient (CLI) | payer OTHER | LOC: FIMAGING 14:41 ==